=== PATIENT | male | born 1945 | race Caucasian/White ===

== ENCOUNTER 2016-10-22 19:19 | Emergency (ER) | payer BC, MEDICARE ==
[~2016-10-22 19:19] MED LIST: HYDR-3713 PO
[2016-10-22] MEDS ORDERED: methylPREDNISolone INJ 125 MG/2 ML VIAL (J2930) As Ordered ONE (19:46)
[2016-10-22] MEDS ORDERED: IPRATROPIUM 0.5MG/ALBUTEROL 2.5MG INH SOL UD 3ML (DUONEB)(J7620) As Ordered ONE ×2 (19:50→20:46)
[2016-10-22 20:05] LABS: BASO % 0.5 % (0.0-1.0); EOS # 0.3 K/mm3 (0.0-0.50); LARGE UNSTAINED CELL # 0.2 K/mm3 (0.0-0.4); LARGE UNSTAINED CELL % 2.9 % (0.0-4.0); LYMPH # 1.6 K/mm3 (1.5-4.5); LYMPH % 30.8 % (24.0-44.0); MEAN CORPUSCULAR HEMOGLOBIN 31.2 pg (27.0-33.0); MEAN CORPUSCULAR HGB CONC 34.5 g/dl (32.0-36.5); MEAN CORPUSCULAR VOLUME 90.4 fl (80.0-96.0); MONO # 0.4 K/mm3 (0.0-0.8); MONO % 7.6 % (0.0-5.0); NEUTROPHILS # 2.8 K/mm3 (1.8-7.7); NEUTROPHILS % 53.2 % (36.0-66.0); PLATELET COUNT, AUTOMATED 146 k/mm3 (150-450); RED CELL DISTRIBUTION WIDTH 13.2 % (11.5-14.5); WHITE BLOOD COUNT 5.3 K/mm3 (4.0-10.0)
[2016-10-22 20:06] LABS: ABG DEVICE NASAL CANN; ABG HCO3 22.2 MEQ/L (22.0-26.0); ABG PARTIAL PRESSURE CO2 36.6 mmHg (35.0-45.0); ABG PARTIAL PRESSURE O2 93.3 mmHg (75.0-100.0); ABG STANDARD HCO3 22.8 MEQ/L (22.0-26.0); ABG TOTAL CO2 23.3 MEQ/L (23.0-31.0); ABG pH (ARTERIAL) 7.401 UNITS (7.350-7.450)
[2016-10-22 20:30] LABS: ANION GAP 6 MEQ/L (8-16); BLOOD UREA NITROGEN 13 MG/DL (7-18); CALCIUM LEVEL 8.9 MG/DL (8.8-10.2); CARBON DIOXIDE LEVEL 28 MEQ/L (21-32); CHLORIDE LEVEL 110 MEQ/L (98-107); CREATININE FOR GFR 0.92 MG/DL (0.70-1.30); GLOMERULAR FILTRATION RATE > 60.0 (>49); GLUCOSE, FASTING 102 MG/DL (80-110); POTASSIUM SERUM 4.8 MEQ/L (3.5-5.1); SODIUM LEVEL 144 MEQ/L (136-145)
[2016-10-22] MEDS ORDERED: predniSONE 20 MG TAB As Ordered ONE (22:04)
[2016-10-22] MEDS ORDERED: AZITHROMYCIN 250 MG TAB As Ordered ONE (22:04)
--- NOTE | 2016-10-22 22:37 | EDDOCDS ---
Nurse's Notes [facility] Name: Jorge Paris Age: 70 yrs Sex: Male : 1945 Arrival Date: 10/22/2016 Time: 19:19 Bed 11 Private MD: Otto Malin Diagnosis: Chronic obstructive pulmonary disease with (acute) exacerbation Presentation: 10/22 19:32 Presenting complaint: Patient states: SOB increasingly worse since this evening. Last ttb couple days pt has had dry cough, worsening tonight. Labored breathing and diaphoresis noted upon arrival. Adult Sepsis Screening: The patient does not have new or worsening altered mentation. Patient has a respiratory rate of greater than or equal to 22 (1 point). Systolic blood pressure is greater than 100. Patient has a qSOFA score of 1- Negative Sepsis Screen. Suicide/Homicide risk assessment- the patient denies having any suicidal and/or homicidal ideations and does not present with any other emotional, behavioral or mental health complaints. Status: Patient is not a emergency services professional or dependent. Transition of care: patient was not received from another setting of care. 19:32 Acuity: KRISTY Level 2 ttb 19:32 Method Of Arrival: Walkin/Carried/Asstd ttb Triage Assessment: 19:32 General: Appears uncomfortable, well nourished, well groomed, Behavior is anxious, ttb appropriate for age, cooperative, pleasant. Pain: Denies pain. Neurological: Level of Consciousness is awake, alert. Cardiovascular: Chest pain is denied. Respiratory: Airway is patent Respiratory effort is even, labored, with retractions, shallow, Respiratory pattern is symmetrical, tachypnea Reports shortness of breath at rest on exertion cough that is non-productive, labored breathing since worsening tonight the patient has moderate shortness of breath. Derm: Skin is clammy, diaphoretic, Skin is normal, Skin temperature is warm. Injury Description: No known injury. 22:36 Respiratory: Onset: The symptoms/episode began/occurred suddenly. cf2 Historical: - Allergies: no known allergies; - Home Meds: 1. albuterol sulfate 90 mcg/actuation Inhl HFAA every 4-6 hours (Last dose: 10/22/2016 18:30) 2. anoro inhaler daily (Last dose: 10/22/2016 08:00) 3. aspirin 325 mg Oral tab 1 tab once daily (Last dose: 10/22/2016 08:00) 4. antiinflammatory twice a day (Last dose: 10/22/2016 17:30) 5. ramipril 2.5 mg Oral cap once daily (Last dose: 10/22/2016 17:30) 6. simvastatin 20 mg Oral tab 1 tab once daily (Last dose: 10/22/2016 17:30) - PMHx: COPD; NC; right toe surgery; Hypercholesterolemia; Hypertension; - PSHx: Hernia repair- Right inguinal (2010); Cataract Surgery- Bilateral; Hernia repair- Left inguinal (2009); - The history from nurses notes was reviewed: and I agree with what is documented. - Social history: Smoking status: Patient states former smoker of tobacco. Patient/guardian denies using alcohol, street drugs, No barriers to communication noted, The patient speaks fluent Mauritanian, Speaks appropriately for age. - : The pt / caregiver states he / she is not on anticoagulants. Home medication list is obtained from the patient. - Hospitalizations: : No recent hospitalization is reported. - Exposure Risk Screening:: None identified. - Immunization history:: All immunizations up-to-date. - Family history: Not pertinent. - Social history:: the patient is a former smoker, the patient drinks alcohol, socially. Screenin:28 Screening information is obtained from the patient. Fall risk: No risks identified. cf2 Assistance ADL's: requires no assistance with activities of daily living. Abuse/DV Screen: The patient / caregiver reports he/she is: not in a situation that causes fear, pain or injury. Nutritional screening: No deficits noted. Advance Directives: Further advance directive information is declined. home support is adequate. Assessment: 20:07 Adult Sepsis Screening: The patient does not have new or worsening altered mentation. cf2 Patient has a respiratory rate of greater than or equal to 22 (1 point). Systolic blood pressure is greater than 100. Patient has a qSOFA score of 1- Negative Sepsis Screen. General: Appears distressed, ill, Behavior is anxious, restless, Reports feeling ill for Denies fever, fatigue, chills. Pain: Denies pain. Neurological: No deficits noted. EENT: No deficits noted. Cardiovascular: Rhythm is sinus rhythm Chest pain is denied. Respiratory: Airway is patent Respiratory effort is labored, Respiratory pattern is tachypnea Breath sounds with rales bilaterally. Breath sounds with wheezes bilaterally. GI: No deficits noted. : No deficits noted. Derm: No deficits noted. Musculoskeletal: No deficits noted. Injury Description: No known injury. 22:35 Reassessment: Patient appears in no apparent distress at this time. Patient denies pain cf2 at this time. Patient states feeling better. Patient states symptoms have improved. Vital Signs: 19:20 BP 191 / 97; Pulse 106; Resp 26; Pulse Ox 97% ; Weight 74.84 kg (R); Height 5 ft. 11 elp in. (180.34 cm) (R); 19:28 Pulse 104 MON; Pulse Ox 96% ; cf2 19:31 Pulse 104 MON; Pulse Ox 98% ; cf2 19:35 Pulse 110 MON; Pulse Ox 97% ; cf2 19:38 Pulse 102 MON; Pulse Ox 97% ; cf2 19:41 Pulse 104 MON; Pulse Ox 97% ; cf2 19:44 Pulse 102 MON; Pulse Ox 96% ; cf2 19:46 Pulse 100 MON; Pulse Ox 96% ; cf2 19:49 Pulse 96 MON; Pulse Ox 96% ; cf2 19:53 Pulse 94 MON; Pulse Ox 96% ; cf2 19:59 Pulse 102 MON; Pulse Ox 98% ; cf2 20:03 Pulse 100 MON; Pulse Ox 99% ; cf2 20:05 Pulse 98 MON; Pulse Ox 99% ; cf2 20:07 Pulse 98 MON; Pulse Ox 99% ; cf2 20:22 Pulse 94 MON; Pulse Ox 97% ; cf2 20:23 BP 139 / 74; Pulse 94; Resp 26; Pulse Ox 97% on 2 lpm NC; Pain 2/10; cf2 20:28 Pulse 94 MON; Pulse Ox 98% ; cf2 20:35 Pulse 96 MON; Pulse Ox 99% ; cf2 20:41 Pulse 98 MON; Pulse Ox 96% ; cf2 20:45 Pulse 100 MON; Pulse Ox 95% ; cf2 20:49 Pulse 104 MON; Pulse Ox 99% ; cf2 21:57 BP 131 / 65; Pulse 104; Resp 22; Temp 97.6(O); Pulse Ox 96% on R/A; cf2 22:35 BP 132 / 78; Pulse 98; Resp 22; Temp 98.0; Pulse Ox 96% on R/A; Pain 0/10; cf2 19:20 Body Mass Index 23.01 (74.84 kg, 180.34 cm) elp Vitals: 19:20 Log In Time: October 22, 2016 at 19:18. RN notified that patient meets Red Flag elp criteria. ED Course: 19:20 Patient visited by Becka Cevallos PCA. elp 19:20 Otto Malin MD is Private Physician. elp 19:20 Patient moved to Waiting elp 19:21 Patient visited by Becka Cevallos PCA. elp 19:22 Patient moved to [facility] 19:28 The patient / caregiver is instructed regarding the plan of care and ED course. Patient cf2 has correct armband on for positive identification. Placed in gown. Bed in low position. Call light in reach. Side rails up X 1. Side rails up X2. mechanic on. Pulse ox on. NIBP on. Property :Personal belongings accompany Pt. Door closed. Noise minimized. Visitors limited. Lights dimmed. Moved to private room. Verbal reassurance given. Warm blanket given. Pillow given. Head of bed elevated. Diet: Patient is NPO. 19:28 Inserted saline lock: 20 gauge in left antecubital area and blood collected. The cf2 patient tolerated the procedure well. 19:30 Jonnathan Koroma MD is Attending Physician. pc 19:33 Triage Initiated ttb 19:34 Renea Felder,CARRIE is Primary Nurse. cf2 19:35 Patient visited by Kiki Pradhan RN. ttb 19:35 Patient visited by Renea Felder,CARRIE. cf2 19:35 Patient visited by Jonnathan Koroma MD. pc 19:55 -Influenza A&B Rapid Antigen - Nose Sent. cf2 19:55 BLOOD CULTURES Sent. cf2 19:55 -Blood Culture Sent. cf2 19:55 B-Type Natiuretic Peptide Sent. cf2 19:55 Basic Metabolic Profile Sent. cf2 19:55 CBC with Diff Sent. cf2 19:55 Cardiac Injury Profile Sent. cf2 19:55 Troponin Sent. cf2 20:01 -Arterial Blood Gas Sent. jh6 20:05 Patient visited by Renea Felder,CARRIE. cf2 20:07 Patient visited by Renea Felder,CARRIE. cf2 20:27 [facility] Payment Agreement was scanned into [employer] and attached to record. zo 20:33 EKG done. (by ED staff). Reviewed by Jonnathan Koroma MD. kb5 20:34 Patient visited by Sebas Van PCA. kb5 21:08 Patient visited by Renea Felder RN. cf2 21:16 Patient visited by Renea Felder RN. cf2 21:23 Patient visited by Sebas Van PCA. kb5 21:47 Patient visited by Renea Felder RN. cf2 21:53 Patient visited by Renea Felder RN. cf2 21:57 Patient visited by Renea Felder RN. cf2 21:57 No procedures done that require assistance. cf2 22:00 Otto Malin MD is Referral Physician. pc 22:00 Dread Bonilla is Referral Physician. pc 22:03 Patient visited by Renea Felder RN. cf2 22:11 Patient visited by Renea Felder RN. cf2 22:35 Patient visited by Renea Felder RN. cf2 22:35 Discontinued lock bleeding controlled, pressure dressing applied, No redness/swelling cf2 at site. Administered Medications: 19:46 Drug: Solu-MEDROL 125 mg [Solu-Medrol 500 mg intravenous solution (125 mg)] Route: IVP; cf2 Site: left antecubital; 20:00 Drug: Albuterol-Ipratropium 1 neb [ipratropium-albuterol 0.5 mg-3 mg(2.5 mg base)/3 mL jh6 nebulization soln (1 neb)] Route: Nebulizer; 20:22 Drug: Albuterol-Ipratropium 1 neb [ipratropium-albuterol 0.5 mg-3 mg(2.5 mg base)/3 mL jh6 nebulization soln (1 neb)] Route: Nebulizer; 20:48 Drug: Albuterol-Ipratropium 1 neb [ipratropium-albuterol 0.5 mg-3 mg(2.5 mg base)/3 mL jh6 nebulization soln (1 neb)] Route: Nebulizer; 22:06 Drug: predniSONE 60 mg [prednisone 20 mg tablet (3 tabs)] Route: PO; cf2 22:10 Follow up: Response: Med's dispensed home cf2 22:07 Drug: azithromycin 500 mg [azithromycin 250 mg tablet (2 tabs)] Route: PO; cf2 22:10 Follow up: Response: No significant change. cf2 RT: 19:55 ABG's drawn from right radial artery pressure held for 5 minutes no bleeding noted jh6 pressure bandage applied specimen sent pt. tolerated well. 20:00 Initial Med Neb Given as ordered Patient was instructed and evaluated on procedure jh6 Patient tolerated procedure well without adverse effect. Respiratory: Airway is patent Respiratory effort is even, labored, Respiratory pattern is regular symmetrical, Breath sounds are coarse in right upper lobe, left upper lobe, right middle lobe, left lower lobe and right lower lobe Breath sounds are diminished in right upper lobe, left upper lobe, right middle lobe, left lower lobe and right lower lobe. 20:10 Respiratory: Breath sounds are diminished in right upper lobe, left upper lobe, right jh6 middle lobe, left lower lobe and right lower lobe Breath sounds with wheezes in right upper lobe, left upper lobe, right middle lobe, left lower lobe and right lower lobe at expiration. 20:22 Subsequent Med Neb Given as ordered Patient was reinforced on procedure Patient jh6 tolerated procedure well without adverse effect. Respiratory: Breath sounds are diminished in right upper lobe, left upper lobe, right middle lobe, left lower lobe and right lower lobe Breath sounds with wheezes in right upper lobe, left upper lobe, right middle lobe, left lower lobe and right lower lobe at expiration. 20:34 Respiratory: Airway is patent Respiratory effort is even, unlabored, Respiratory [facility] pattern is regular symmetrical, Breath sounds are coarse in right upper lobe, left upper lobe and right middle lobe Breath sounds are diminished in right upper lobe, left upper lobe, right middle lobe, left lower lobe and right lower lobe. 20:48 Subsequent Med Neb Given as ordered Patient was reinforced on procedure Patient jh6 tolerated procedure well without adverse effect. Respiratory: Airway is patent Respiratory effort is even, unlabored, Respiratory pattern is regular symmetrical, Breath sounds are coarse in right upper lobe, left upper lobe and right middle lobe Breath sounds with rhonchi in right upper lobe, left upper lobe and right middle lobe Breath sounds are diminished in right upper lobe, left upper lobe, right middle lobe, left lower lobe and right lower lobe. 20:55 Respiratory: Airway is patent Respiratory effort is even, unlabored, Respiratory jh6 pattern is regular symmetrical, Breath sounds are coarse in left posterior upper lobe, right posterior upper lobe, left posterior lower lobe, right posterior middle lobe and right posterior lower lobe Breath sounds with wheezes in left posterior upper lobe, right posterior upper lobe, left posterior lower lobe, right posterior middle lobe and right posterior lower lobe at expiration at inspiration. Reports still some chest tightness. Order Results: Lab Order: B-Type Natiuretic Peptide; SPEC'M 10/22/16 19:49 Test: BRAIN NATRIURETIC PEPTIDE; Value: 9.2; Range: <100; Units: PG/ML; Status: F Lab Order: Basic Metabolic Profile; SPEC'M 10/22/16 19:49 Test: GLUCOSE, FASTING; Value: 102; Range: 80-110; Units: MG/DL; Status: F Test: BLOOD UREA NITROGEN; Value: 13; Range: 7-18; Units: MG/DL; Status: F Test: CREATININE FOR GFR; Value: 0.92; Range: 0.70-1.30; Units: MG/DL; Status: F Test: GLOMERULAR FILTRATION RATE; Value: > 60.0; Range: >49; Status: F Test: SODIUM LEVEL; Value: 144; Range: 136-145; Units: MEQ/L; Status: F Test: POTASSIUM SERUM; Value: 4.8; Range: 3.5-5.1; Units: MEQ/L; Status: F Test: CHLORIDE LEVEL; Value: 110; Range: 98-107; Abnormal: Above high normal; Units: MEQ/L; Status: F Test: CARBON DIOXIDE LEVEL; Value: 28; Range: 21-32; Units: MEQ/L; Status: F Test: ANION GAP; Value: 6; Range: 8-16; Abnormal: Below low normal; Units: MEQ/L; Status: F Test: CALCIUM LEVEL; Value: 8.9; Range: 8.8-10.2; Units: MG/DL; Status: F Test Note: ; Units are mL/min/1.73 m2 Chronic Kidney Disease Staging per NKF: Stage I & II GFR >=60 Normal to Mildly Decreased Stage III GFR 30-59 Moderately Decreased Stage IV GFR 15-29 Severely Decreased Stage V GFR <15 Very Little GFR Left ESRD GFR <15 on PLANNER CHIEF Lab Order: CBC with Diff; SPEC'M 10/22/16 19:49 Test: WHITE BLOOD COUNT; Value: 5.3; Range: 4.0-10.0; Units: K/mm3; Status: F Test: RED BLOOD COUNT; Value: 5.18; Range: 4.30-6.10; Units: M/mm3; Status: F Test: HEMOGLOBIN; Value: 16.2; Range: 14.0-18.0; Units: g/dl; Status: F Test: HEMATOCRIT; Value: 46.9; Range: 42.0-52.0; Units: %; Status: F Test: MEAN CORPUSCULAR VOLUME; Value: 90.4; Range: 80.0-96.0; Units: fl; Status: F Test: MEAN CORPUSCULAR HEMOGLOBIN; Value: 31.2; Range: 27.0-33.0; Units: pg; Status: F Test: MEAN CORPUSCULAR HGB CONC; Value: 34.5; Range: 32.0-36.5; Units: g/dl; Status: F Test: RED CELL DISTRIBUTION WIDTH; Value: 13.2; Range: 11.5-14.5; Units: %; Status: F Test: PLATELET COUNT, AUTOMATED; Value: 146; Range: 150-450; Abnormal: Below low normal; Units: k/mm3; Status: F Test: NEUTROPHILS %; Value: 53.2; Range: 36.0-66.0; Units: %; Status: F Test: LYMPH %; Value: 30.8; Range: 24.0-44.0; Units: %; Status: F Test: MONO %; Value: 7.6; Range: 0.0-5.0; Abnormal: Above high normal; Units: %; Status: F Test: EOS %; Value: 5.0; Range: 0.0-3.0; Abnormal: Above high normal; Units: %; Status: F Test: BASO %; Value: 0.5; Range: 0.0-1.0; Units: %; Status: F Test: LARGE UNSTAINED CELL %; Value: 2.9; Range: 0.0-4.0; Units: %; Status: F Test: NEUTROPHILS #; Value: 2.8; Range: 1.8-7.7; Units: K/mm3; Status: F Test: LYMPH #; Value: 1.6; Range: 1.5-4.5; Units: K/mm3; Status: F Test: MONO #; Value: 0.4; Range: 0.0-0.8; Units: K/mm3; Status: F Test: EOS #; Value: 0.3; Range: 0.0-0.50; Units: K/mm3; Status: F Test: BASO #; Value: 0.0; Range: 0.0-0.2; Units: K/mm3; Status: F Test: LARGE UNSTAINED CELL #; Value: 0.2; Range: 0.0-0.4; Units: K/mm3; Status: F Lab Order: Cardiac Injury Profile; SPEC'M 10/22/16 19:49 Test: CPK CREATINE PHOSPHOKINASE; Value: 76; Range: 39-308; Units: U/L; Status: F Test: CK-MB VALUE MASS; Value: 1.5; Range: 0.0-3.6; Units: NG/ML; Status: F Test: MB/CK RELATIVE INDEX; Value: 1.97; Range: < OR =4; Status: F Test Note: ; DIAGNOSIS CRITERIA MMB ng/ml Relative Index (RI) NON-AMI < or = 5 N/A PEDROZA ZONE > 5 < or = 4 AMI > 5 > 4 Lab Order: Troponin; SPEC'M 10/22/16 19:49 Test: TROPONIN I; Value: < 0.02; Range: < 0.10; Units: NG/ML; Status: F Test Note: ; Troponin I Reference Interval for [place] LOCI: 99th Percentile= 0.00-0.045 ng/ml Risk Stratification: <= 0.10 ng/ml Decreased Risk for Adverse Clinical Events. 0.10-1.50 ng/ml Increased Risk for Adverse Clinical Events. Evaluation of additional criterion and/or repeat testing in 2-6 hours is suggested to rule out myocardial damage. >= 1.50 ng/ml Indicative of Myocardial Injury. Lab Order: -Influenza A&B Rapid Antigen - Nose; SPEC'M 10/22/16 19:49 Test: INFLUENZA A RAPID SCR by ICA; Value: INFLUENZA A RESULTS NEGATIVE; Status: F Test: INFLUENZA A RAPID SCR by ICA; Value: Comments:; Status: F Test: INFLUENZA B RAPID SCR by ICA; Value: INFLUENZA B RESULTS NEGATIVE; Status: F Test Note: ; The Influenza test is a direct rapid immunoassay for the qualitative detection of Influenza viral antigen. Cell culture (Viral Culture) testing should be considered to confirm NEGATIVE results and to assist in detecting other viruses that can provide similar clinical symptoms. Please contact the lab within 24 hours ([phone]) if confirmatory testing is desired. Outcome: 22:01 Discharge ordered by Provider. pc 22:35 Discharge Assessment: Patient awake, alert and oriented x 3. No cognitive and/or cf2 functional deficits noted. Patient verbalized understanding of disposition instructions. Patient awake and alert. Oriented to person, place and time. patient administered narcotics - no. The following High Risk Discharge criteria are identified: None. Discharged to home ambulatory. Condition: good Condition: stable Condition: improved. Discharge instructions given to patient, Instructed on discharge instructions, follow up and referral plans. medication usage, Demonstrated understanding of instructions, medications. No special radiology studies were completed. 22:36 Patient left the ED. cf2 Signatures: Jonnathan Koroma MD MD pc Zecher, Calvin, Esther Mclain RN, Kristopher, DRYWALL WORKER DRYWALL WORKER kb5 Reece Avila 6 Kiki Pradhan RN RN ttb Patchen, Erin, DRYWALL WORKER DRYWALL WORKER elp Renea Felder RN RN cf2 MTDD
--- NOTE | 2016-10-22 22:37 | EDDOCDS ---
Physician Documentation [facility] Name: Jorge Paris Age: 70 yrs Sex: Male : 1945 Arrival Date: 10/22/2016 Time: 19:19 Bed 11 Private MD: Otto Malin Disposition: 10/22 21:59 Critical Care: Critical care not applicable. pc Disposition: 10/22/16 22:01 Discharged to Home/Self Care. Impression: Chronic obstructive pulmonary disease with (acute) exacerbation. - Condition is Stable. - Discharge Instructions: Chronic Obstructive Pulmonary Disease. - Prescriptions for Prednisone 10 mg Oral Tablet - take 1 tablet by ORAL route as directed Day1-3:6 po,day4-5:5 po,day6-7: 4 po,day8-9:3 po,fiu88-19:2 po,day 12-14:1 po; 49 tablet. Zithromax Z- Chu 250 mg Oral Tablet - take 2 tablet by ORAL route once daily for 3 days; 6 tablet. - Medication Reconciliation, Local Pharmacy Hours form. - Follow up: Otto Malin MD; When: Call to arrange an appointment; Reason: Continuance of care. Follow up: Dread Bonilla; When: As previously arranged; Reason: Continuance of care. - Problem is an acute exacerbation. - Symptoms have improved. HPI: 19:37 This 70 yrs old Male presents to ER via Walkin/Carried/Asstd with complaints pc of Breathing Difficulty. 19:37 The history is obtained from the patient. The patient presents with shortness of pc breath, with a prior history of COPD. The symptoms began gradually 2 days ago, and became worse today. The symptoms are continuous, and are steadily getting worse. There were circumstances that led to the current symptoms, including; a recent upper respiratory illness. The patient has shortness of breath at rest. At their worst, the symptoms were moderate. In the emergency department, the symptoms are unchanged. despite home interventions. The patient's shortness of breath is aggravated by coughing, is alleviated by nothing. The patient's dyspnea was accompanied with cough, non-productive, heart racing, anxiety. The patient's known risk factors for coronary artery disease include: high cholesterol, smoking cigarettes, hypertension. The patient has experienced similar episodes in the past, several times, and the symptoms today are exactly the same, to when the patient was apparently diagnosed with COPD exacerbation. The patient has not recently seen a physician. Historical: - Allergies: no known allergies; - Home Meds: 1. albuterol sulfate 90 mcg/actuation Inhl HFAA every 4-6 hours (Last dose: 10/22/2016 18:30) 2. anoro inhaler daily (Last dose: 10/22/2016 08:00) 3. aspirin 325 mg Oral tab 1 tab once daily (Last dose: 10/22/2016 08:00) 4. antiinflammatory twice a day (Last dose: 10/22/2016 17:30) 5. ramipril 2.5 mg Oral cap once daily (Last dose: 10/22/2016 17:30) 6. simvastatin 20 mg Oral tab 1 tab once daily (Last dose: 10/22/2016 17:30) - PMHx: COPD; ID; right toe surgery; Hypercholesterolemia; Hypertension; - PSHx: Hernia repair- Right inguinal (2010); Cataract Surgery- Bilateral; Hernia repair- Left inguinal (2009); - The history from nurses notes was reviewed: and I agree with what is documented. - Social history: Smoking status: Patient states former smoker of tobacco. Patient/guardian denies using alcohol, street drugs, No barriers to communication noted, The patient speaks fluent Georgian, Speaks appropriately for age. - : The pt / caregiver states he / she is not on anticoagulants. Home medication list is obtained from the patient. - Hospitalizations: : No recent hospitalization is reported. - Exposure Risk Screening:: None identified. - Immunization history:: All immunizations up-to-date. - Family history: Not pertinent. - Social history:: the patient is a former smoker, the patient drinks alcohol, socially. ROS: 19:37 All systems are negative except as listed. The gastrointestinal and genitourinary pc components are also addressed in the HPI. Exam: 19:37 General Appearance: alert, the patient is in moderate distress. pc 19:37 EENT: normal eye inspection, ears, nose and throat normal, pharynx normal, mucous membranes moist 19:37 Neck: normal inspection. 19:37 Respiratory: no pleuritic chest pain, speaks in full sentences, the patient is in mild respiratory distress, auscultation reveals wheezes, diffusely, decreased air entry noted throughout RR 26, PO 96% on room air. 19:37 Cardiovascular: normal rhythm, no jugular venous distension appreciated, no murmurs, no gallop, no friction rub, peripheral pulses full and equal bilaterally, the heart rate is tachycardic, at 108 bpm. 19:37 Abdomen: non-tender, non-distended, no organomegaly. 19:37 Skin: normal color, warm, dry. 19:37 Extremities: non-tender, normal range of motion of all joints, no pedal edema. 19:37 Neuro: alert, oriented to person, place and time, cranial nerves normal as tested, no motor deficits, no sensory deficits. 19:37 Psych: normal mood. 22:00 General Appearance: no acute distress, alert. pc 22:00 Respiratory: no respiratory distress, breath sounds normal, no pleuritic chest pain, speaks in full sentences. Vital Signs: 19:20 BP 191 / 97; Pulse 106; Resp 26; Pulse Ox 97% ; Weight 74.84 kg / 164.99 lbs (R); elp Height 5 ft. 11 in. (180.34 cm) (R); 19:28 Pulse 104 MON; Pulse Ox 96% ; cf2 19:31 Pulse 104 MON; Pulse Ox 98% ; cf2 19:35 Pulse 110 MON; Pulse Ox 97% ; cf2 19:38 Pulse 102 MON; Pulse Ox 97% ; cf2 19:41 Pulse 104 MON; Pulse Ox 97% ; cf2 19:44 Pulse 102 MON; Pulse Ox 96% ; cf2 19:46 Pulse 100 MON; Pulse Ox 96% ; cf2 19:49 Pulse 96 MON; Pulse Ox 96% ; cf2 19:53 Pulse 94 MON; Pulse Ox 96% ; cf2 19:59 Pulse 102 MON; Pulse Ox 98% ; cf2 20:03 Pulse 100 MON; Pulse Ox 99% ; cf2 20:05 Pulse 98 MON; Pulse Ox 99% ; cf2 20:07 Pulse 98 MON; Pulse Ox 99% ; cf2 20:22 Pulse 94 MON; Pulse Ox 97% ; cf2 20:23 BP 139 / 74; Pulse 94; Resp 26; Pulse Ox 97% on 2 lpm NC; Pain 2/10; cf2 20:28 Pulse 94 MON; Pulse Ox 98% ; cf2 20:35 Pulse 96 MON; Pulse Ox 99% ; cf2 20:41 Pulse 98 MON; Pulse Ox 96% ; cf2 20:45 Pulse 100 MON; Pulse Ox 95% ; cf2 20:49 Pulse 104 MON; Pulse Ox 99% ; cf2 21:57 BP 131 / 65; Pulse 104; Resp 22; Temp 97.6(O); Pulse Ox 96% on R/A; cf2 22:35 BP 132 / 78; Pulse 98; Resp 22; Temp 98.0; Pulse Ox 96% on R/A; Pain 0/10; cf2 19:20 Body Mass Index 23.01 (74.84 kg, 180.34 cm) elp MDM: 19:36 Solu-MEDROL 125 mg IVP once ordered. pc 19:36 -Blood Culture (Adults Only), peripheral from different site, or from device/port/PICC pc etc. if present ordered. 19:36 Call Respiratory ordered. pc 19:36 High Heel Builder/Pulse Ox/q 15 min VS ordered. pc 19:36 IV Saline Lock ordered. pc 19:36 Rhythm Strip to chart ordered. pc 19:36 Albuterol-Ipratropium 1 neb Nebulizer every 20 minutes x3 ordered. pc 19:36 Obtain sample by nasopharyngeal swab ordered. pc 19:37 -Arterial Blood Gas Ordered. EDMS 19:37 B-Type Natiuretic Peptide Ordered. EDMS 19:37 Basic Metabolic Profile Ordered. EDMS 19:37 CBC with Diff Ordered. EDMS 19:37 Cardiac Injury Profile Ordered. EDMS 19:37 Troponin Ordered. EDMS 19:37 -Blood Culture Ordered. EDMS 19:37 Call Respiratory complete. ml3 19:37 Chest, 1 View Ordered. EDMS 19:37 Differential diagnosis: Bronchitis CHF, Chronic Obstructive Pulmonary Disease pc pneumonia, Unstable Angina Influenza. Plan: labs, nebs, meds, CXR, EKG. 19:38 ECG WITH READING ER PHYS+CARDIAG ordered. EDMS 19:38 -Influenza A&B Rapid Antigen - Nose Ordered. EDMS 19:38 -Blood Culture (Adults Only), peripheral from different site, or from device/port/PICC ml3 etc. if present complete. 19:39 BLOOD CULTURES Ordered. EDMS 20:15 Financial registration complete. zo 20:27 [facility] [place] Payment Agreement was scanned into [employer] and attached to record. zo 20:33 Test interpretation: EKG. pc 20:51 Basic Metabolic Profile Reviewed. pc 20:51 CBC with Diff Reviewed. pc 20:51 B-Type Natiuretic Peptide Reviewed. pc 20:51 Cardiac Injury Profile Reviewed. pc 20:51 Troponin Reviewed. pc 20:51 -Influenza A&B Rapid Antigen - Nose Reviewed. pc 21:53 Ambulate Patient wt Pulse Oximetry ordered. pc 21:53 Repeat Temperature - Oral: Inform provider of result ordered. pc 21:59 Data reviewed: old medical records, vital signs, nurses notes, EKG(s), lab test pc results, all radiology studies and available results. Test interpretation: LAB - all labs as ordered have been reviewed, interpreted and considered in the overall management of the clinical presentation; X-RAY - interpreted by id, 1 view chest chronic obstructive pulmonary disease pattern. The patient has been re-examined and re-evaluated. The patient's symptoms have resolved after treatment. Disposition: The historical points, examination findings, and any diagnostic results supporting the provided diagnosis, were discussed with the patient or legal guardian. The need for outpatient follow up with the provider listed on their discharge instructions was discussed. They were encouraged to return to [facility], or the nearest ED, if symptoms worsen/persist, or for any other questions/concerns. 22:03 predniSONE 60 mg PO Per package directions; dispense to go: take in the A.M. ordered. pc 22:03 azithromycin 500 mg PO once ordered. pc EC:33 Rate is 93 beats/min. Rhythm is regular, Normal Sinus Rhythm. QRS [place] is Normal. [place] pc interval is normal. QRS interval is normal. QT interval is normal. No Q waves. T waves are Normal. No ST changes noted. Clinical impression: Normal Sinus Rhythm. Administered Medications: 19:46 Drug: Solu-MEDROL 125 mg [Solu-Medrol 500 mg intravenous solution (125 mg)] Route: IVP; cf2 Site: left antecubital; 20:00 Drug: Albuterol-Ipratropium 1 neb [ipratropium-albuterol 0.5 mg-3 mg(2.5 mg base)/3 mL jh6 nebulization soln (1 neb)] Route: Nebulizer; 20:22 Drug: Albuterol-Ipratropium 1 neb [ipratropium-albuterol 0.5 mg-3 mg(2.5 mg base)/3 mL jh6 nebulization soln (1 neb)] Route: Nebulizer; 20:48 Drug: Albuterol-Ipratropium 1 neb [ipratropium-albuterol 0.5 mg-3 mg(2.5 mg base)/3 mL jh6 nebulization soln (1 neb)] Route: Nebulizer; 22:06 Drug: predniSONE 60 mg [prednisone 20 mg tablet (3 tabs)] Route: PO; cf2 22:10 Follow up: Response: Med's dispensed home cf2 22:07 Drug: azithromycin 500 mg [azithromycin 250 mg tablet (2 tabs)] Route: PO; cf2 22:10 Follow up: Response: No significant change. cf2 Signatures: Dispatcher [employer] EDMS Jonnathan Koroma MD MD pc Lopresti, Mary-Elizabeth, [employer] ml3 Esther Shanks Teresa, RN RN ttb Renea Felder RN RN cf2 Reece Avila 6 The chart was reviewed and I authenticate all verbal orders and agree with the evaluation and treatment provided.Attachments: 20:27 [facility] Payment Agreement zo MTDD
--- NOTE | 2016-10-23 00:21 | REP ---
Clinical: Chest pain. Comparison: 02/07/2016. Findings: Mediastinum and cardiac silhouette are stable and within normal limits. Lung álvarez demonstrate chronic changes without acute consolidation, effusion, or pneumothorax. Skeletal structures are intact. Impression: Chronic stable changes. No acute cardiopulmonary process. Signed by Fabrizio Reynolds MD 10/23/2016 12:12 A
--- NOTE | 2016-10-23 07:27 | ECGEPIP ---
Stationary ECG Study [facility] - ED Test Date: 2016-10-22 Pat Name: SOURAV GEORGE Department: Room: - Gender: M Market Development Director: ANA : 1945 Requested By: Jonnathan Uribe Order Number: [id number] Reading MD: Farnaz De La Torre Measurements Intervals [place] Rate: 93 P: 63 KS: 167 QRS: 33 QRSD: 93 T: 60 QT: 328 QTc: 409 Interpretive Statements SINUS RHYTHM LOW VOLTAGE LIMB INCREASED RATE 08/25/16 Electronically Signed On 10-23-2016 7:26:52 EST by Farnaz De La Torre
--- NOTE | 2016-10-24 23:38 | EDDOCDS ---
Physician Documentation [facility] Name: Jorge Paris Age: 70 yrs Sex: Male : 1945 Arrival Date: 10/22/2016 Time: 19:19 Bed 11 Private MD: Otto Malin Disposition: 10/22 21:59 Critical Care: Critical care not applicable. pc Disposition: 10/22/16 22:01 Discharged to Home/Self Care. Impression: Chronic obstructive pulmonary disease with (acute) exacerbation. - Condition is Stable. - Discharge Instructions: Chronic Obstructive Pulmonary Disease. - Prescriptions for Prednisone 10 mg Oral Tablet - take 1 tablet by ORAL route as directed Day1-3:6 po,day4-5:5 po,day6-7: 4 po,day8-9:3 po,nfy97-25:2 po,day 12-14:1 po; 49 tablet. Zithromax Z- Chu 250 mg Oral Tablet - take 2 tablet by ORAL route once daily for 3 days; 6 tablet. - Medication Reconciliation, Local Pharmacy Hours form. - Follow up: Otto Malin MD; When: Call to arrange an appointment; Reason: Continuance of care. Follow up: Dread Bonilla; When: As previously arranged; Reason: Continuance of care. - Problem is an acute exacerbation. - Symptoms have improved. HPI: 19:37 This 70 yrs old Male presents to ER via Walkin/Carried/Asstd with complaints pc of Breathing Difficulty. 19:37 The history is obtained from the patient. The patient presents with shortness of pc breath, with a prior history of COPD. The symptoms began gradually 2 days ago, and became worse today. The symptoms are continuous, and are steadily getting worse. There were circumstances that led to the current symptoms, including; a recent upper respiratory illness. The patient has shortness of breath at rest. At their worst, the symptoms were moderate. In the emergency department, the symptoms are unchanged. despite home interventions. The patient's shortness of breath is aggravated by coughing, is alleviated by nothing. The patient's dyspnea was accompanied with cough, non-productive, heart racing, anxiety. The patient's known risk factors for coronary artery disease include: high cholesterol, smoking cigarettes, hypertension. The patient has experienced similar episodes in the past, several times, and the symptoms today are exactly the same, to when the patient was apparently diagnosed with COPD exacerbation. The patient has not recently seen a physician. Historical: - Allergies: no known allergies; - Home Meds: 1. albuterol sulfate 90 mcg/actuation Inhl HFAA every 4-6 hours (Last dose: 10/22/2016 18:30) 2. anoro inhaler daily (Last dose: 10/22/2016 08:00) 3. aspirin 325 mg Oral tab 1 tab once daily (Last dose: 10/22/2016 08:00) 4. antiinflammatory twice a day (Last dose: 10/22/2016 17:30) 5. ramipril 2.5 mg Oral cap once daily (Last dose: 10/22/2016 17:30) 6. simvastatin 20 mg Oral tab 1 tab once daily (Last dose: 10/22/2016 17:30) - PMHx: COPD; [place]; right toe surgery; Hypercholesterolemia; Hypertension; - PSHx: Hernia repair- Right inguinal (2010); Cataract Surgery- Bilateral; Hernia repair- Left inguinal (2009); - The history from nurses notes was reviewed: and I agree with what is documented. - Social history: Smoking status: Patient states former smoker of tobacco. Patient/guardian denies using alcohol, street drugs, No barriers to communication noted, The patient speaks fluent Faroese, Speaks appropriately for age. - : The pt / caregiver states he / she is not on anticoagulants. Home medication list is obtained from the patient. - Hospitalizations: : No recent hospitalization is reported. - Exposure Risk Screening:: None identified. - Immunization history:: All immunizations up-to-date. - Family history: Not pertinent. - Social history:: the patient is a former smoker, the patient drinks alcohol, socially. ROS: 19:37 All systems are negative except as listed. The gastrointestinal and genitourinary pc components are also addressed in the HPI. Exam: 19:37 General Appearance: alert, the patient is in moderate distress. pc 19:37 EENT: normal eye inspection, ears, nose and throat normal, pharynx normal, mucous membranes moist 19:37 Neck: normal inspection. 19:37 Respiratory: no pleuritic chest pain, speaks in full sentences, the patient is in mild respiratory distress, auscultation reveals wheezes, diffusely, decreased air entry noted throughout RR 26, PO 96% on room air. 19:37 Cardiovascular: normal rhythm, no jugular venous distension appreciated, no murmurs, no gallop, no friction rub, peripheral pulses full and equal bilaterally, the heart rate is tachycardic, at 108 bpm. 19:37 Abdomen: non-tender, non-distended, no organomegaly. 19:37 Skin: normal color, warm, dry. 19:37 Extremities: non-tender, normal range of motion of all joints, no pedal edema. 19:37 Neuro: alert, oriented to person, place and time, cranial nerves normal as tested, no motor deficits, no sensory deficits. 19:37 Psych: normal mood. 22:00 General Appearance: no acute distress, alert. pc 22:00 Respiratory: no respiratory distress, breath sounds normal, no pleuritic chest pain, speaks in full sentences. Vital Signs: 19:20 BP 191 / 97; Pulse 106; Resp 26; Pulse Ox 97% ; Weight 74.84 kg / 164.99 lbs (R); elp Height 5 ft. 11 in. (180.34 cm) (R); 19:28 Pulse 104 MON; Pulse Ox 96% ; cf2 19:31 Pulse 104 MON; Pulse Ox 98% ; cf2 19:35 Pulse 110 MON; Pulse Ox 97% ; cf2 19:38 Pulse 102 MON; Pulse Ox 97% ; cf2 19:41 Pulse 104 MON; Pulse Ox 97% ; cf2 19:44 Pulse 102 MON; Pulse Ox 96% ; cf2 19:46 Pulse 100 MON; Pulse Ox 96% ; cf2 19:49 Pulse 96 MON; Pulse Ox 96% ; cf2 19:53 Pulse 94 MON; Pulse Ox 96% ; cf2 19:59 Pulse 102 MON; Pulse Ox 98% ; cf2 20:03 Pulse 100 MON; Pulse Ox 99% ; cf2 20:05 Pulse 98 MON; Pulse Ox 99% ; cf2 20:07 Pulse 98 MON; Pulse Ox 99% ; cf2 20:22 Pulse 94 MON; Pulse Ox 97% ; cf2 20:23 BP 139 / 74; Pulse 94; Resp 26; Pulse Ox 97% on 2 lpm NC; Pain 2/10; cf2 20:28 Pulse 94 MON; Pulse Ox 98% ; cf2 20:35 Pulse 96 MON; Pulse Ox 99% ; cf2 20:41 Pulse 98 MON; Pulse Ox 96% ; cf2 20:45 Pulse 100 MON; Pulse Ox 95% ; cf2 20:49 Pulse 104 MON; Pulse Ox 99% ; cf2 21:57 BP 131 / 65; Pulse 104; Resp 22; Temp 97.6(O); Pulse Ox 96% on R/A; cf2 22:35 BP 132 / 78; Pulse 98; Resp 22; Temp 98.0; Pulse Ox 96% on R/A; Pain 0/10; cf2 19:20 Body Mass Index 23.01 (74.84 kg, 180.34 cm) elp MDM: 19:36 Solu-MEDROL 125 mg IVP once ordered. pc 19:36 -Blood Culture (Adults Only), peripheral from different site, or from device/port/PICC pc etc. if present ordered. 19:36 Call Respiratory ordered. pc 19:36 Dumpster Driver/Pulse Ox/q 15 min VS ordered. pc 19:36 IV Saline Lock ordered. pc 19:36 Rhythm Strip to chart ordered. pc 19:36 Albuterol-Ipratropium 1 neb Nebulizer every 20 minutes x3 ordered. pc 19:36 Obtain sample by nasopharyngeal swab ordered. pc 19:37 -Arterial Blood Gas Ordered. EDMS 19:37 B-Type Natiuretic Peptide Ordered. EDMS 19:37 Basic Metabolic Profile Ordered. EDMS 19:37 CBC with Diff Ordered. EDMS 19:37 Cardiac Injury Profile Ordered. EDMS 19:37 Troponin Ordered. EDMS 19:37 -Blood Culture Ordered. EDMS 19:37 Call Respiratory complete. ml3 19:37 Chest, 1 View Ordered. EDMS 19:37 Differential diagnosis: Bronchitis CHF, Chronic Obstructive Pulmonary Disease pc pneumonia, Unstable Angina Influenza. Plan: labs, nebs, meds, CXR, EKG. 19:38 ECG WITH READING ER PHYS+CARDIAG ordered. EDMS 19:38 -Influenza A&B Rapid Antigen - Nose Ordered. EDMS 19:38 -Blood Culture (Adults Only), peripheral from different site, or from device/port/PICC ml3 etc. if present complete. 19:39 BLOOD CULTURES Ordered. EDMS 20:15 Financial registration complete. zo 20:27 [facility] was scanned into [employer] and attached to record. zo 20:33 Test interpretation: EKG. pc 20:51 Basic Metabolic Profile Reviewed. pc 20:51 CBC with Diff Reviewed. pc 20:51 B-Type Natiuretic Peptide Reviewed. pc 20:51 Cardiac Injury Profile Reviewed. pc 20:51 Troponin Reviewed. pc 20:51 -Influenza A&B Rapid Antigen - Nose Reviewed. pc 21:53 Ambulate Patient wt Pulse Oximetry ordered. pc 21:53 Repeat Temperature - Oral: Inform provider of result ordered. pc 21:59 Data reviewed: old medical records, vital signs, nurses notes, EKG(s), lab test pc results, all radiology studies and available results. Test interpretation: LAB - all labs as ordered have been reviewed, interpreted and considered in the overall management of the clinical presentation; X-RAY - interpreted by il, 1 view chest chronic obstructive pulmonary disease pattern. The patient has been re-examined and re-evaluated. The patient's symptoms have resolved after treatment. Disposition: The historical points, examination findings, and any diagnostic results supporting the provided diagnosis, were discussed with the patient or legal guardian. The need for outpatient follow up with the provider listed on their discharge instructions was discussed. They were encouraged to return to [facility], or the nearest ED, if symptoms worsen/persist, or for any other questions/concerns. 22:03 predniSONE 60 mg PO Per package directions; dispense to go: take in the A.M. ordered. pc 22:03 azithromycin 500 mg PO once ordered. 10/23 12:39 ECG/EKG was scanned into [employer] and attached to record. EC/25 20:33 Rate is 93 beats/min. Rhythm is regular, Normal Sinus Rhythm. QRS [place] is Normal. [place] pc interval is normal. QRS interval is normal. QT interval is normal. No Q waves. T waves are Normal. No ST changes noted. Clinical impression: Normal Sinus Rhythm. Administered Medications: 19:46 Drug: Solu-MEDROL 125 mg [Solu-Medrol 500 mg intravenous solution (125 mg)] Route: IVP; cf2 Site: left antecubital; 20:00 Drug: Albuterol-Ipratropium 1 neb [ipratropium-albuterol 0.5 mg-3 mg(2.5 mg base)/3 mL jh6 nebulization soln (1 neb)] Route: Nebulizer; 20:22 Drug: Albuterol-Ipratropium 1 neb [ipratropium-albuterol 0.5 mg-3 mg(2.5 mg base)/3 mL jh6 nebulization soln (1 neb)] Route: Nebulizer; 20:48 Drug: Albuterol-Ipratropium 1 neb [ipratropium-albuterol 0.5 mg-3 mg(2.5 mg base)/3 mL jh6 nebulization soln (1 neb)] Route: Nebulizer; 22:06 Drug: predniSONE 60 mg [prednisone 20 mg tablet (3 tabs)] Route: PO; cf2 22:10 Follow up: Response: Med's dispensed home cf2 22:07 Drug: azithromycin 500 mg [azithromycin 250 mg tablet (2 tabs)] Route: PO; cf2 22:10 Follow up: Response: No significant change. cf2 Signatures: Dispatcher [employer] EDJonnathan Kaba MD MD pc Barnhardt, Gloria, Denis Reg gb Malini Steinberg, Hotel Server Unit ml3 Esther Shanks Teresa, CARRIE RN ttb Renea Felder RN RN cf2 Reece Avila 6 The chart was reviewed and I authenticate all verbal orders and agree with the evaluation and treatment provided.Attachments: 20:27 [facility] [place] Agreement zo 10/23 12:39 [facility]EKG [facility]
--- NOTE | 2016-10-24 23:38 | EDDOCDS ---
Nurse's Notes [facility] Name: Jorge George Age: 70 yrs Sex: Male : 1945 Arrival Date: 10/22/2016 Time: 19:19 Bed 11 Private MD: Otto Malin Diagnosis: Chronic obstructive pulmonary disease with (acute) exacerbation Presentation: 10/22 19:32 Presenting complaint: Patient states: SOB increasingly worse since this evening. Last ttb couple days pt has had dry cough, worsening tonight. Labored breathing and diaphoresis noted upon arrival. Adult Sepsis Screening: The patient does not have new or worsening altered mentation. Patient has a respiratory rate of greater than or equal to 22 (1 point). Systolic blood pressure is greater than 100. Patient has a qSOFA score of 1- Negative Sepsis Screen. Suicide/Homicide risk assessment- the patient denies having any suicidal and/or homicidal ideations and does not present with any other emotional, behavioral or mental health complaints. 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 Transition of care: patient was not received from another setting of care. 19:32 Acuity: KRISTY Level 2 ttb 19:32 Method Of Arrival: Walkin/Carried/Asstd ttb Triage Assessment: 19:32 General: Appears uncomfortable, well nourished, well groomed, Behavior is anxious, ttb appropriate for age, cooperative, pleasant. Pain: Denies pain. Neurological: Level of Consciousness is awake, alert. Cardiovascular: Chest pain is denied. Respiratory: Airway is patent Respiratory effort is even, labored, with retractions, shallow, Respiratory pattern is symmetrical, tachypnea Reports shortness of breath at rest on exertion cough that is non-productive, labored breathing since worsening tonight the patient has moderate shortness of breath. Derm: Skin is clammy, diaphoretic, Skin is normal, Skin temperature is warm. Injury Description: No known injury. 22:36 Respiratory: Onset: The symptoms/episode began/occurred suddenly. cf2 Historical: - Allergies: no known allergies; - Home Meds: 1. albuterol sulfate 90 mcg/actuation Inhl HFAA every 4-6 hours (Last dose: 10/22/2016 18:30) 2. anoro inhaler daily (Last dose: 10/22/2016 08:00) 3. aspirin 325 mg Oral tab 1 tab once daily (Last dose: 10/22/2016 08:00) 4. antiinflammatory twice a day (Last dose: 10/22/2016 17:30) 5. ramipril 2.5 mg Oral cap once daily (Last dose: 10/22/2016 17:30) 6. simvastatin 20 mg Oral tab 1 tab once daily (Last dose: 10/22/2016 17:30) - PMHx: COPD; [place]; right toe surgery; Hypercholesterolemia; Hypertension; - PSHx: Hernia repair- Right inguinal (2010); Cataract Surgery- Bilateral; Hernia repair- Left inguinal (2009); - The history from nurses notes was reviewed: and I agree with what is documented. - Social history: Smoking status: Patient states former smoker of tobacco. Patient/guardian denies using alcohol, street drugs, No barriers to communication noted, The patient speaks fluent Angolan, Speaks appropriately for age. - : The pt / caregiver states he / she is not on anticoagulants. Home medication list is obtained from the patient. - Hospitalizations: : No recent hospitalization is reported. - Exposure Risk Screening:: None identified. - Immunization history:: All immunizations up-to-date. - Family history: Not pertinent. - Social history:: the patient is a former smoker, the patient drinks alcohol, socially. Screenin:28 Screening information is obtained from the patient. Fall risk: No risks identified. cf2 Assistance ADL's: requires no assistance with activities of daily living. Abuse/DV Screen: The patient / caregiver reports he/she is: not in a situation that causes fear, pain or injury. Nutritional screening: No deficits noted. Advance Directives: Further advance directive information is declined. home support is adequate. Assessment: 20:07 Adult Sepsis Screening: The patient does not have new or worsening altered mentation. cf2 Patient has a respiratory rate of greater than or equal to 22 (1 point). Systolic blood pressure is greater than 100. Patient has a qSOFA score of 1- Negative Sepsis Screen. General: Appears distressed, ill, Behavior is anxious, restless, Reports feeling ill for Denies fever, fatigue, chills. Pain: Denies pain. Neurological: No deficits noted. EENT: No deficits noted. Cardiovascular: Rhythm is sinus rhythm Chest pain is denied. Respiratory: Airway is patent Respiratory effort is labored, Respiratory pattern is tachypnea Breath sounds with rales bilaterally. Breath sounds with wheezes bilaterally. GI: No deficits noted. : No deficits noted. Derm: No deficits noted. Musculoskeletal: No deficits noted. Injury Description: No known injury. 22:35 Reassessment: Patient appears in no apparent distress at this time. Patient denies pain cf2 at this time. Patient states feeling better. Patient states symptoms have improved. Vital Signs: 19:20 BP 191 / 97; Pulse 106; Resp 26; Pulse Ox 97% ; Weight 74.84 kg (R); Height 5 ft. 11 elp in. (180.34 cm) (R); 19:28 Pulse 104 MON; Pulse Ox 96% ; cf2 19:31 Pulse 104 MON; Pulse Ox 98% ; cf2 19:35 Pulse 110 MON; Pulse Ox 97% ; cf2 19:38 Pulse 102 MON; Pulse Ox 97% ; cf2 19:41 Pulse 104 MON; Pulse Ox 97% ; cf2 19:44 Pulse 102 MON; Pulse Ox 96% ; cf2 19:46 Pulse 100 MON; Pulse Ox 96% ; cf2 19:49 Pulse 96 MON; Pulse Ox 96% ; cf2 19:53 Pulse 94 MON; Pulse Ox 96% ; cf2 19:59 Pulse 102 MON; Pulse Ox 98% ; cf2 20:03 Pulse 100 MON; Pulse Ox 99% ; cf2 20:05 Pulse 98 MON; Pulse Ox 99% ; cf2 20:07 Pulse 98 MON; Pulse Ox 99% ; cf2 20:22 Pulse 94 MON; Pulse Ox 97% ; cf2 20:23 BP 139 / 74; Pulse 94; Resp 26; Pulse Ox 97% on 2 lpm NC; Pain 2/10; cf2 20:28 Pulse 94 MON; Pulse Ox 98% ; cf2 20:35 Pulse 96 MON; Pulse Ox 99% ; cf2 20:41 Pulse 98 MON; Pulse Ox 96% ; cf2 20:45 Pulse 100 MON; Pulse Ox 95% ; cf2 20:49 Pulse 104 MON; Pulse Ox 99% ; cf2 21:57 BP 131 / 65; Pulse 104; Resp 22; Temp 97.6(O); Pulse Ox 96% on R/A; cf2 22:35 BP 132 / 78; Pulse 98; Resp 22; Temp 98.0; Pulse Ox 96% on R/A; Pain 0/10; cf2 19:20 Body Mass Index 23.01 (74.84 kg, 180.34 cm) elp Vitals: 19:20 Log In Time: October 22, 2016 at 19:18. RN notified that patient meets Red Flag elp criteria. ED Course: 19:20 Patient visited by Becka Cevallos PCA. elp 19:20 Otto Malin MD is Private Physician. elp 19:20 Patient moved to Waiting elp 19:21 Patient visited by Becka Cevallos PCA. elp 19:22 Patient moved to [facility] 19:28 The patient / caregiver is instructed regarding the plan of care and ED course. Patient cf2 has correct armband on for positive identification. Placed in gown. Bed in low position. Call light in reach. Side rails up X 1. Side rails up X2. court monitor on. Pulse ox on. NIBP on. Property :Personal belongings accompany Pt. Door closed. Noise minimized. Visitors limited. Lights dimmed. Moved to private room. Verbal reassurance given. Warm blanket given. Pillow given. Head of bed elevated. Diet: Patient is NPO. 19:28 Inserted saline lock: 20 gauge in left antecubital area and blood collected. The cf2 patient tolerated the procedure well. 19:30 Jonnathan Koroma MD is Attending Physician. pc 19:33 Triage Initiated ttb 19:34 Renea Felder,CARRIE is Primary Nurse. cf2 19:35 Patient visited by Kiki Pradhan RN. ttb 19:35 Patient visited by Renea Felder,CARRIE. cf2 19:35 Patient visited by Jonnathan Koroma MD. pc 19:55 -Influenza A&B Rapid Antigen - Nose Sent. cf2 19:55 BLOOD CULTURES Sent. cf2 19:55 -Blood Culture Sent. cf2 19:55 B-Type Natiuretic Peptide Sent. cf2 19:55 Basic Metabolic Profile Sent. cf2 19:55 CBC with Diff Sent. cf2 19:55 Cardiac Injury Profile Sent. cf2 19:55 Troponin Sent. cf2 20:01 -Arterial Blood Gas Sent. jh6 20:05 Patient visited by Renea Felder,CARRIE. cf2 20:07 Patient visited by Renea Felder,CARRIE. cf2 20:27 [facility] Payment Agreement was scanned into [employer] and attached to record. zo 20:33 EKG done. (by ED staff). Reviewed by Jonnathan Koroma MD. kb5 20:34 Patient visited by Sebas Van PCA. kb5 21:08 Patient visited by Renea Felder,CARRIE. cf2 21:16 Patient visited by Renea Felder RN. cf2 21:23 Patient visited by Sebas Van PCA. kb5 21:47 Patient visited by Renea Felder RN. cf2 21:53 Patient visited by Renea Felder RN. cf2 21:57 Patient visited by Renea Felder RN. cf2 21:57 No procedures done that require assistance. cf2 22:00 Otto Malin MD is Referral Physician. pc 22:00 Dread Bonilla is Referral Physician. pc 22:03 Patient visited by Renea Felder RN. cf2 22:11 Patient visited by Renea Felder RN. cf2 22:35 Patient visited by Renea Felder RN. cf2 22:35 Discontinued lock bleeding controlled, pressure dressing applied, No redness/swelling cf2 at site. 10/23 00:54 Chest, 1 View Returned. EDMS 07:36 EKG-ADULT Returned. EDMS 12:39 ECG/EKG was scanned into [employer] and attached to record. gb Administered Medications: 10/22 19:46 Drug: Solu-MEDROL 125 mg [Solu-Medrol 500 mg intravenous solution (125 mg)] Route: IVP; cf2 Site: left antecubital; 20:00 Drug: Albuterol-Ipratropium 1 neb [ipratropium-albuterol 0.5 mg-3 mg(2.5 mg base)/3 mL jh6 nebulization soln (1 neb)] Route: Nebulizer; 20:22 Drug: Albuterol-Ipratropium 1 neb [ipratropium-albuterol 0.5 mg-3 mg(2.5 mg base)/3 mL jh6 nebulization soln (1 neb)] Route: Nebulizer; 20:48 Drug: Albuterol-Ipratropium 1 neb [ipratropium-albuterol 0.5 mg-3 mg(2.5 mg base)/3 mL [facility] nebulization soln (1 neb)] Route: Nebulizer; 22:06 Drug: predniSONE 60 mg [prednisone 20 mg tablet (3 tabs)] Route: PO; cf2 22:10 Follow up: Response: Med's dispensed home cf2 22:07 Drug: azithromycin 500 mg [azithromycin 250 mg tablet (2 tabs)] Route: PO; cf2 22:10 Follow up: Response: No significant change. cf2 RT: 19:55 ABG's drawn from right radial artery pressure held for 5 minutes no bleeding noted 6 pressure bandage applied specimen sent pt. tolerated well. 20:00 Initial Med Neb Given as ordered Patient was instructed and evaluated on procedure jh6 Patient tolerated procedure well without adverse effect. Respiratory: Airway is patent Respiratory effort is even, labored, Respiratory pattern is regular symmetrical, Breath sounds are coarse in right upper lobe, left upper lobe, right middle lobe, left lower lobe and right lower lobe Breath sounds are diminished in right upper lobe, left upper lobe, right middle lobe, left lower lobe and right lower lobe. 20:10 Respiratory: Breath sounds are diminished in right upper lobe, left upper lobe, right jh6 middle lobe, left lower lobe and right lower lobe Breath sounds with wheezes in right upper lobe, left upper lobe, right middle lobe, left lower lobe and right lower lobe at expiration. 20:22 Subsequent Med Neb Given as ordered Patient was reinforced on procedure Patient 6 tolerated procedure well without adverse effect. Respiratory: Breath sounds are diminished in right upper lobe, left upper lobe, right middle lobe, left lower lobe and right lower lobe Breath sounds with wheezes in right upper lobe, left upper lobe, right middle lobe, left lower lobe and right lower lobe at expiration. 20:34 Respiratory: Airway is patent Respiratory effort is even, unlabored, Respiratory [facility] pattern is regular symmetrical, Breath sounds are coarse in right upper lobe, left upper lobe and right middle lobe Breath sounds are diminished in right upper lobe, left upper lobe, right middle lobe, left lower lobe and right lower lobe. 20:48 Subsequent Med Neb Given as ordered Patient was reinforced on procedure Patient 6 tolerated procedure well without adverse effect. Respiratory: Airway is patent Respiratory effort is even, unlabored, Respiratory pattern is regular symmetrical, Breath sounds are coarse in right upper lobe, left upper lobe and right middle lobe Breath sounds with rhonchi in right upper lobe, left upper lobe and right middle lobe Breath sounds are diminished in right upper lobe, left upper lobe, right middle lobe, left lower lobe and right lower lobe. 20:55 Respiratory: Airway is patent Respiratory effort is even, unlabored, Respiratory jh6 pattern is regular symmetrical, Breath sounds are coarse in left posterior upper lobe, right posterior upper lobe, left posterior lower lobe, right posterior middle lobe and right posterior lower lobe Breath sounds with wheezes in left posterior upper lobe, right posterior upper lobe, left posterior lower lobe, right posterior middle lobe and right posterior lower lobe at expiration at inspiration. Reports still some chest tightness. Order Results: Lab Order: -Arterial Blood Gas; SPEC'M 10/22/16 19:52 Test: ABG pH (ARTERIAL); Value: 7.401; Range: 7.350-7.450; Units: UNITS; Status: F Test: ABG PARTIAL PRESSURE CO2; Value: 36.6; Range: 35.0-45.0; Units: mmHg; Status: F Test: ABG PARTIAL PRESSURE O2; Value: 93.3; Range: 75.0-100.0; Units: mmHg; Status: F Test: ABG TOTAL CO2; Value: 23.3; Range: 23.0-31.0; Units: MEQ/L; Status: F Test: ABG HCO3; Value: 22.2; Range: 22.0-26.0; Units: MEQ/L; Status: F Test: ABG BASE EXCESS; Value: -2.0; Range: -2.0-2.0; Status: F Test: ABG STANDARD HCO3; Value: 22.8; Range: 22.0-26.0; Units: MEQ/L; Status: F Test: ABG O2 SATURATION; Value: 97.5; Range: 95.0-99.0; Units: %; Status: F Test: ABG DEVICE; Value: NASAL VISHAL; Status: F Lab Order: -Blood Culture; SPEC'M 10/22/16 19:49 Test: BLOOD CULTURE; Value: No growth after 24 hours . All specimens observed; Status: F Test: BLOOD CULTURE; Value: for 5 days. Results final at that time.; Status: F Test: BLOOD CULTURE; Value: No Growth after 48 hours. All Specimens observed; Status: F Test: BLOOD CULTURE; Value: for 7 days. Results final at that time.; Status: F Lab Order: B-Type Natiuretic Peptide; SPEC'M 10/22/16 19:49 Test: BRAIN NATRIURETIC PEPTIDE; Value: 9.2; Range: <100; Units: PG/ML; Status: F Lab Order: Basic Metabolic Profile; SPEC'M 10/22/16 19:49 Test: GLUCOSE, FASTING; Value: 102; Range: 80-110; Units: MG/DL; Status: F Test: BLOOD UREA NITROGEN; Value: 13; Range: 7-18; Units: MG/DL; Status: F Test: CREATININE FOR GFR; Value: 0.92; Range: 0.70-1.30; Units: MG/DL; Status: F Test: GLOMERULAR FILTRATION RATE; Value: > 60.0; Range: >49; Status: F Test: SODIUM LEVEL; Value: 144; Range: 136-145; Units: MEQ/L; Status: F Test: POTASSIUM SERUM; Value: 4.8; Range: 3.5-5.1; Units: MEQ/L; Status: F Test: CHLORIDE LEVEL; Value: 110; Range: 98-107; Abnormal: Above high normal; Units: MEQ/L; Status: F Test: CARBON DIOXIDE LEVEL; Value: 28; Range: 21-32; Units: MEQ/L; Status: F Test: ANION GAP; Value: 6; Range: 8-16; Abnormal: Below low normal; Units: MEQ/L; Status: F Test: CALCIUM LEVEL; Value: 8.9; Range: 8.8-10.2; Units: MG/DL; Status: F Test Note: ; Units are mL/min/1.73 m2 Chronic Kidney Disease Staging per NKF: Stage I & II GFR >=60 Normal to Mildly Decreased Stage III GFR 30-59 Moderately Decreased Stage IV GFR 15-29 Severely Decreased Stage V GFR <15 Very Little GFR Left ESRD GFR <15 on CHIEF SECURITY OFFICER Lab Order: CBC with Diff; SPEC'M 10/22/16 19:49 Test: WHITE BLOOD COUNT; Value: 5.3; Range: 4.0-10.0; Units: K/mm3; Status: F Test: RED BLOOD COUNT; Value: 5.18; Range: 4.30-6.10; Units: M/mm3; Status: F Test: HEMOGLOBIN; Value: 16.2; Range: 14.0-18.0; Units: g/dl; Status: F Test: HEMATOCRIT; Value: 46.9; Range: 42.0-52.0; Units: %; Status: F Test: MEAN CORPUSCULAR VOLUME; Value: 90.4; Range: 80.0-96.0; Units: fl; Status: F Test: MEAN CORPUSCULAR HEMOGLOBIN; Value: 31.2; Range: 27.0-33.0; Units: pg; Status: F Test: MEAN CORPUSCULAR HGB CONC; Value: 34.5; Range: 32.0-36.5; Units: g/dl; Status: F Test: RED CELL DISTRIBUTION WIDTH; Value: 13.2; Range: 11.5-14.5; Units: %; Status: F Test: PLATELET COUNT, AUTOMATED; Value: 146; Range: 150-450; Abnormal: Below low normal; Units: k/mm3; Status: F Test: NEUTROPHILS %; Value: 53.2; Range: 36.0-66.0; Units: %; Status: F Test: LYMPH %; Value: 30.8; Range: 24.0-44.0; Units: %; Status: F Test: MONO %; Value: 7.6; Range: 0.0-5.0; Abnormal: Above high normal; Units: %; Status: F Test: EOS %; Value: 5.0; Range: 0.0-3.0; Abnormal: Above high normal; Units: %; Status: F Test: BASO %; Value: 0.5; Range: 0.0-1.0; Units: %; Status: F Test: LARGE UNSTAINED CELL %; Value: 2.9; Range: 0.0-4.0; Units: %; Status: F Test: NEUTROPHILS #; Value: 2.8; Range: 1.8-7.7; Units: K/mm3; Status: F Test: LYMPH #; Value: 1.6; Range: 1.5-4.5; Units: K/mm3; Status: F Test: MONO #; Value: 0.4; Range: 0.0-0.8; Units: K/mm3; Status: F Test: EOS #; Value: 0.3; Range: 0.0-0.50; Units: K/mm3; Status: F Test: BASO #; Value: 0.0; Range: 0.0-0.2; Units: K/mm3; Status: F Test: LARGE UNSTAINED CELL #; Value: 0.2; Range: 0.0-0.4; Units: K/mm3; Status: F Lab Order: Cardiac Injury Profile; SPEC'M 10/22/16 19:49 Test: CPK CREATINE PHOSPHOKINASE; Value: 76; Range: 39-308; Units: U/L; Status: F Test: CK-MB VALUE MASS; Value: 1.5; Range: 0.0-3.6; Units: NG/ML; Status: F Test: MB/CK RELATIVE INDEX; Value: 1.97; Range: < OR =4; Status: F Test Note: ; DIAGNOSIS CRITERIA MMB ng/ml Relative Index (RI) NON-AMI < or = 5 N/A PEDROZA ZONE > 5 < or = 4 AMI > 5 > 4 Lab Order: Troponin; SPEC'M 10/22/16 19:49 Test: TROPONIN I; Value: < 0.02; Range: < 0.10; Units: NG/ML; Status: F Test Note: ; Troponin I Reference Interval for [employer] LOCI: 99th Percentile= 0.00-0.045 ng/ml Risk Stratification: <= 0.10 ng/ml Decreased Risk for Adverse Clinical Events. 0.10-1.50 ng/ml Increased Risk for Adverse Clinical Events. Evaluation of additional criterion and/or repeat testing in 2-6 hours is suggested to rule out myocardial damage. >= 1.50 ng/ml Indicative of Myocardial Injury. Lab Order: -Influenza A&B Rapid Antigen - Nose; SPEC'M 10/22/16 19:49 Test: INFLUENZA A RAPID SCR by ICA; Value: INFLUENZA A RESULTS NEGATIVE; Status: F Test: INFLUENZA A RAPID SCR by ICA; Value: Comments:; Status: F Test: INFLUENZA B RAPID SCR by ICA; Value: INFLUENZA B RESULTS NEGATIVE; Status: F Test Note: ; The Influenza test is a direct rapid immunoassay for the qualitative detection of Influenza viral antigen. Cell culture (Viral Culture) testing should be considered to confirm NEGATIVE results and to assist in detecting other viruses that can provide similar clinical symptoms. Please contact the lab within 24 hours ([phone]) if confirmatory testing is desired. Lab Order: BLOOD CULTURES; SPEC'M 10/22/16 19:49 Test: BLOOD CULTURE; Value: No growth after 24 hours . All specimens observed; Status: F Test: BLOOD CULTURE; Value: for 5 days. Results final at that time.; Status: F Test: BLOOD CULTURE; Value: No Growth after 48 hours. All Specimens observed; Status: F Test: BLOOD CULTURE; Value: for 7 days. Results final at that time.; Status: F Radiology Order: Chest, 1 View Test: Chest, 1 View REASON FOR EXAMINATION: Shortness of Breath; Clinical: Chest pain.; ; Comparison: 02/07/2016.; ; Findings:; Mediastinum and cardiac silhouette are stable and within normal limits. Lung; álvarez demonstrate chronic changes without acute consolidation, effusion, or; pneumothorax. 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 pc 22:35 Discharge Assessment: Patient awake, alert and oriented x 3. No cognitive and/or cf2 functional deficits noted. Patient verbalized understanding of disposition instructions. Patient awake and alert. Oriented to person, place and time. patient administered narcotics - no. The following High Risk Discharge criteria are identified: None. Discharged to home ambulatory. Condition: good Condition: stable Condition: improved. Discharge instructions given to patient, Instructed on discharge instructions, follow up and referral plans. medication usage, Demonstrated understanding of instructions, medications. No special radiology studies were completed. 22:36 Patient left the ED. cf2 Signatures: Dispatcher [employer] EDMS Jonnathan Koroma MD MD pc Zecher, Calvin, RN RN cz Sharon Schneider, Reg Reg gb Esther Shanks Kristopher, STEEL BOX TOE INSERTER STEEL BOX TOE INSERTER kb5 Reece Avila 6 Kiki Pradhan, RN RN ttBecka Velasquez, STEEL BOX TOE INSERTER STEEL BOX TOE INSERTER Renea Musa,RN RN cf2 Chart Complete MTDD
--- NOTE | 2016-10-24 23:38 | EDDOCDS ---
Physician Documentation [facility] Name: Jorge Paris Age: 70 yrs Sex: Male : 1945 Arrival Date: 10/22/2016 Time: 19:19 Bed 11 Private MD: Otto Malin Disposition: 10/22 21:59 Critical Care: Critical care not applicable. pc Disposition: 10/22/16 22:01 Discharged to Home/Self Care. Impression: Chronic obstructive pulmonary disease with (acute) exacerbation. - Condition is Stable. - Discharge Instructions: Chronic Obstructive Pulmonary Disease. - Prescriptions for Prednisone 10 mg Oral Tablet - take 1 tablet by ORAL route as directed Day1-3:6 po,day4-5:5 po,day6-7: 4 po,day8-9:3 po,fyp30-06:2 po,day 12-14:1 po; 49 tablet. Zithromax Z- Chu 250 mg Oral Tablet - take 2 tablet by ORAL route once daily for 3 days; 6 tablet. - Medication Reconciliation, Local Pharmacy Hours form. - Follow up: Otto Malin MD; When: Call to arrange an appointment; Reason: Continuance of care. Follow up: Dread Bonilla; When: As previously arranged; Reason: Continuance of care. - Problem is an acute exacerbation. - Symptoms have improved. HPI: 19:37 This 70 yrs old Male presents to ER via Walkin/Carried/Asstd with complaints pc of Breathing Difficulty. 19:37 The history is obtained from the patient. The patient presents with shortness of pc breath, with a prior history of COPD. The symptoms began gradually 2 days ago, and became worse today. The symptoms are continuous, and are steadily getting worse. There were circumstances that led to the current symptoms, including; a recent upper respiratory illness. The patient has shortness of breath at rest. At their worst, the symptoms were moderate. In the emergency department, the symptoms are unchanged. despite home interventions. The patient's shortness of breath is aggravated by coughing, is alleviated by nothing. The patient's dyspnea was accompanied with cough, non-productive, heart racing, anxiety. The patient's known risk factors for coronary artery disease include: high cholesterol, smoking cigarettes, hypertension. The patient has experienced similar episodes in the past, several times, and the symptoms today are exactly the same, to when the patient was apparently diagnosed with COPD exacerbation. The patient has not recently seen a physician. Historical: - Allergies: no known allergies; - Home Meds: 1. albuterol sulfate 90 mcg/actuation Inhl HFAA every 4-6 hours (Last dose: 10/22/2016 18:30) 2. anoro inhaler daily (Last dose: 10/22/2016 08:00) 3. aspirin 325 mg Oral tab 1 tab once daily (Last dose: 10/22/2016 08:00) 4. antiinflammatory twice a day (Last dose: 10/22/2016 17:30) 5. ramipril 2.5 mg Oral cap once daily (Last dose: 10/22/2016 17:30) 6. simvastatin 20 mg Oral tab 1 tab once daily (Last dose: 10/22/2016 17:30) - PMHx: COPD; NH; right toe surgery; Hypercholesterolemia; Hypertension; - PSHx: Hernia repair- Right inguinal (2010); Cataract Surgery- Bilateral; Hernia repair- Left inguinal (2009); - The history from nurses notes was reviewed: and I agree with what is documented. - Social history: Smoking status: Patient states former smoker of tobacco. Patient/guardian denies using alcohol, street drugs, No barriers to communication noted, The patient speaks fluent Icelandic, Speaks appropriately for age. - : The pt / caregiver states he / she is not on anticoagulants. Home medication list is obtained from the patient. - Hospitalizations: : No recent hospitalization is reported. - Exposure Risk Screening:: None identified. - Immunization history:: All immunizations up-to-date. - Family history: Not pertinent. - Social history:: the patient is a former smoker, the patient drinks alcohol, socially. ROS: 19:37 All systems are negative except as listed. The gastrointestinal and genitourinary pc components are also addressed in the HPI. Exam: 19:37 General Appearance: alert, the patient is in moderate distress. pc 19:37 EENT: normal eye inspection, ears, nose and throat normal, pharynx normal, mucous membranes moist 19:37 Neck: normal inspection. 19:37 Respiratory: no pleuritic chest pain, speaks in full sentences, the patient is in mild respiratory distress, auscultation reveals wheezes, diffusely, decreased air entry noted throughout RR 26, PO 96% on room air. 19:37 Cardiovascular: normal rhythm, no jugular venous distension appreciated, no murmurs, no gallop, no friction rub, peripheral pulses full and equal bilaterally, the heart rate is tachycardic, at 108 bpm. 19:37 Abdomen: non-tender, non-distended, no organomegaly. 19:37 Skin: normal color, warm, dry. 19:37 Extremities: non-tender, normal range of motion of all joints, no pedal edema. 19:37 Neuro: alert, oriented to person, place and time, cranial nerves normal as tested, no motor deficits, no sensory deficits. 19:37 Psych: normal mood. 22:00 General Appearance: no acute distress, alert. pc 22:00 Respiratory: no respiratory distress, breath sounds normal, no pleuritic chest pain, speaks in full sentences. Vital Signs: 19:20 BP 191 / 97; Pulse 106; Resp 26; Pulse Ox 97% ; Weight 74.84 kg / 164.99 lbs (R); elp Height 5 ft. 11 in. (180.34 cm) (R); 19:28 Pulse 104 MON; Pulse Ox 96% ; cf2 19:31 Pulse 104 MON; Pulse Ox 98% ; cf2 19:35 Pulse 110 MON; Pulse Ox 97% ; cf2 19:38 Pulse 102 MON; Pulse Ox 97% ; cf2 19:41 Pulse 104 MON; Pulse Ox 97% ; cf2 19:44 Pulse 102 MON; Pulse Ox 96% ; cf2 19:46 Pulse 100 MON; Pulse Ox 96% ; cf2 19:49 Pulse 96 MON; Pulse Ox 96% ; cf2 19:53 Pulse 94 MON; Pulse Ox 96% ; cf2 19:59 Pulse 102 MON; Pulse Ox 98% ; cf2 20:03 Pulse 100 MON; Pulse Ox 99% ; cf2 20:05 Pulse 98 MON; Pulse Ox 99% ; cf2 20:07 Pulse 98 MON; Pulse Ox 99% ; cf2 20:22 Pulse 94 MON; Pulse Ox 97% ; cf2 20:23 BP 139 / 74; Pulse 94; Resp 26; Pulse Ox 97% on 2 lpm NC; Pain 2/10; cf2 20:28 Pulse 94 MON; Pulse Ox 98% ; cf2 20:35 Pulse 96 MON; Pulse Ox 99% ; cf2 20:41 Pulse 98 MON; Pulse Ox 96% ; cf2 20:45 Pulse 100 MON; Pulse Ox 95% ; cf2 20:49 Pulse 104 MON; Pulse Ox 99% ; cf2 21:57 BP 131 / 65; Pulse 104; Resp 22; Temp 97.6(O); Pulse Ox 96% on R/A; cf2 22:35 BP 132 / 78; Pulse 98; Resp 22; Temp 98.0; Pulse Ox 96% on R/A; Pain 0/10; cf2 19:20 Body Mass Index 23.01 (74.84 kg, 180.34 cm) elp MDM: 19:36 Solu-MEDROL 125 mg IVP once ordered. pc 19:36 -Blood Culture (Adults Only), peripheral from different site, or from device/port/PICC pc etc. if present ordered. 19:36 Call Respiratory ordered. pc 19:36 Carcass Washer/Pulse Ox/q 15 min VS ordered. pc 19:36 IV Saline Lock ordered. pc 19:36 Rhythm Strip to chart ordered. pc 19:36 Albuterol-Ipratropium 1 neb Nebulizer every 20 minutes x3 ordered. pc 19:36 Obtain sample by nasopharyngeal swab ordered. pc 19:37 -Arterial Blood Gas Ordered. EDMS 19:37 B-Type Natiuretic Peptide Ordered. EDMS 19:37 Basic Metabolic Profile Ordered. EDMS 19:37 CBC with Diff Ordered. EDMS 19:37 Cardiac Injury Profile Ordered. EDMS 19:37 Troponin Ordered. EDMS 19:37 -Blood Culture Ordered. EDMS 19:37 Call Respiratory complete. ml3 19:37 Chest, 1 View Ordered. EDMS 19:37 Differential diagnosis: Bronchitis CHF, Chronic Obstructive Pulmonary Disease pc pneumonia, Unstable Angina Influenza. Plan: labs, nebs, meds, CXR, EKG. 19:38 ECG WITH READING ER PHYS+CARDIAG ordered. EDMS 19:38 -Influenza A&B Rapid Antigen - Nose Ordered. EDMS 19:38 -Blood Culture (Adults Only), peripheral from different site, or from device/port/PICC ml3 etc. if present complete. 19:39 BLOOD CULTURES Ordered. EDMS 20:15 Financial registration complete. zo 20:27 [facility] Payment Agreement was scanned into [employer] and attached to record. zo 20:33 Test interpretation: EKG. pc 20:51 Basic Metabolic Profile Reviewed. pc 20:51 CBC with Diff Reviewed. pc 20:51 B-Type Natiuretic Peptide Reviewed. pc 20:51 Cardiac Injury Profile Reviewed. pc 20:51 Troponin Reviewed. pc 20:51 -Influenza A&B Rapid Antigen - Nose Reviewed. pc 21:53 Ambulate Patient wt Pulse Oximetry ordered. pc 21:53 Repeat Temperature - Oral: Inform provider of result ordered. pc 21:59 Data reviewed: old medical records, vital signs, nurses notes, EKG(s), lab test pc results, all radiology studies and available results. Test interpretation: LAB - all labs as ordered have been reviewed, interpreted and considered in the overall management of the clinical presentation; X-RAY - interpreted by tn, 1 view chest chronic obstructive pulmonary disease pattern. The patient has been re-examined and re-evaluated. The patient's symptoms have resolved after treatment. Disposition: The historical points, examination findings, and any diagnostic results supporting the provided diagnosis, were discussed with the patient or legal guardian. The need for outpatient follow up with the provider listed on their discharge instructions was discussed. They were encouraged to return to [facility], or the nearest ED, if symptoms worsen/persist, or for any other questions/concerns. 22:03 predniSONE 60 mg PO Per package directions; dispense to go: take in the A.M. ordered. pc 22:03 azithromycin 500 mg PO once ordered. 10/23 12:39 ECG/EKG was scanned into [employer] and attached to record. EC/25 20:33 Rate is 93 beats/min. Rhythm is regular, Normal Sinus Rhythm. QRS [place] is Normal. [place] pc interval is normal. QRS interval is normal. QT interval is normal. No Q waves. T waves are Normal. No ST changes noted. Clinical impression: Normal Sinus Rhythm. Administered Medications: 19:46 Drug: Solu-MEDROL 125 mg [Solu-Medrol 500 mg intravenous solution (125 mg)] Route: IVP; cf2 Site: left antecubital; 20:00 Drug: Albuterol-Ipratropium 1 neb [ipratropium-albuterol 0.5 mg-3 mg(2.5 mg base)/3 mL jh6 nebulization soln (1 neb)] Route: Nebulizer; 20:22 Drug: Albuterol-Ipratropium 1 neb [ipratropium-albuterol 0.5 mg-3 mg(2.5 mg base)/3 mL jh6 nebulization soln (1 neb)] Route: Nebulizer; 20:48 Drug: Albuterol-Ipratropium 1 neb [ipratropium-albuterol 0.5 mg-3 mg(2.5 mg base)/3 mL jh6 nebulization soln (1 neb)] Route: Nebulizer; 22:06 Drug: predniSONE 60 mg [prednisone 20 mg tablet (3 tabs)] Route: PO; cf2 22:10 Follow up: Response: Med's dispensed home cf2 22:07 Drug: azithromycin 500 mg [azithromycin 250 mg tablet (2 tabs)] Route: PO; cf2 22:10 Follow up: Response: No significant change. cf2 Signatures: Dispatcher [employer] EDJonnathan Kaba MD MD pc Barnhardt, Gloria, Denis Reg gb Malini Steinberg, Community Case Manager Unit ml3 Esther Shanks Teresa, CARRIE RN ttb Renea Felder RN RN cf2 Reece Avila 6 The chart was reviewed and I authenticate all verbal orders and agree with the evaluation and treatment provided.Attachments: 20:27 [facility] Payment Agreement zo 10/23 12:39 ECG/EKG zach Chart Complete [facility]
== END 2016-10-22 22:36 | disposition home or self-care (01) ==
LOC: M ED 19:19
DX: J44.1 Chronic obstructive pulmonary disease with (acute) exacerbation (principal); I25.2 Old myocardial infarction; E78.00 Pure hypercholesterolemia, unspecified; I10 Essential (primary) hypertension; Z87.891 Personal history of nicotine dependence; Z79.51 Long term (current) use of inhaled steroids; Z79.899 Other long term (current) drug therapy; Z79.82 Long term (current) use of aspirin
CPT/HCPCS: 36415; 36600; 71010; 80048; 82550; 82553; 82803; 83880; 85025; 87040; 87804; 93005; 93041; 94640; 96374; 99285; J2930

== ENCOUNTER 2017-01-06 18:11 | Emergency (ER) | payer BC, MEDICARE ==
[~2017-01-06] VITALS: Ht 180.3 cm; Wt 77.1 kg
[2017-01-06] MEDS ORDERED: ALBU17IN INH (18:20)
[2017-01-06] MEDS ORDERED: SIMV40TA2 PO (18:20)
[2017-01-06] MEDS ORDERED: RAMI25CA PO (18:20)
[2017-01-06] MEDS ORDERED: ASPI325T28 PO (18:20)
--- NOTE | 2017-01-06 19:01 | REP ---
Portable chest, single AP view, the patient upright: Comparisons are 10/22/2016, portable chest and 02/07/2016 PA and lateral chest. The lung álvarez are clear. The cardiac size is normal. The penelope, mediastinum, and bony thorax are unremarkable. Impression: Negative portable chest. There is no interval change. Signed by Stewart De La Cruz MD 01/06/2017 06:52 P
[2017-01-06] MEDS ORDERED: dexameTHASONE 20 MG/5 ML VIAL (J1100) IV ONE (20:00)
[2017-01-06] MEDS: IPRATROPIUM 0.5MG/ALBUTEROL 2.5MG INH SOL UD 3ML (DUONEB)(J7620) NEB SCH ×3 (20:08→20:26)
[2017-01-06 20:20] LABS: ANION GAP 5 MEQ/L (8-16); BLOOD UREA NITROGEN 12 MG/DL (7-18); CALCIUM LEVEL 8.4 MG/DL (8.8-10.2); CARBON DIOXIDE LEVEL 28 MEQ/L (21-32); CHLORIDE LEVEL 108 MEQ/L (98-107); CREATININE FOR GFR 0.89 MG/DL (0.70-1.30); GLOMERULAR FILTRATION RATE > 60.0 (>42); GLUCOSE, FASTING 125 MG/DL (83-110); SODIUM LEVEL 141 MEQ/L (136-145)
[2017-01-06 20:24] LABS: BASO % 0.4 % (0.0-1.0); EOS # 0.2 K/mm3 (0.0-0.50); EOS % 2.7 % (0.0-3.0); LARGE UNSTAINED CELL # 0.1 K/mm3 (0.0-0.4); LARGE UNSTAINED CELL % 1.2 % (0.0-4.0); LYMPH # 1.1 K/mm3 (1.5-4.5); LYMPH % 14.9 % (24.0-44.0); MEAN CORPUSCULAR HEMOGLOBIN 31.1 pg (27.0-33.0); MEAN CORPUSCULAR HGB CONC 34.2 g/dl (32.0-36.5); MEAN CORPUSCULAR VOLUME 90.9 fl (80.0-96.0); MONO # 0.5 K/mm3 (0.0-0.8); MONO % 6.9 % (0.0-5.0); NEUTROPHILS # 5.2 K/mm3 (1.8-7.7); NEUTROPHILS % 73.9 % (36.0-66.0); PLATELET COUNT, AUTOMATED 136 k/mm3 (150-450); RED CELL DISTRIBUTION WIDTH 13.1 % (11.5-14.5)
[2017-01-06] MEDS ORDERED: PRED20TA PO (21:51)
[2017-01-06 21:54] VITALS: BP 105/58
--- NOTE | 2017-01-10 19:50 | ECGEPIP ---
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
== END 2017-01-06 21:59 | disposition home or self-care (01) ==
LOC: M ED 19:55
DX: J44.9 Chronic obstructive pulmonary disease, unspecified (principal); I10 Essential (primary) hypertension; E78.5 Hyperlipidemia, unspecified; Z79.899 Other long term (current) drug therapy; Z79.82 Long term (current) use of aspirin; H26.9 Unspecified cataract
CPT/HCPCS: 36415; 71010; 80048; 83880; 85025; 93005; 93041; 94640; 94760; 96374; 99284; J1100

== ENCOUNTER 2017-05-26 17:24 | Emergency (ER) | payer BC, MEDICARE ==
[~2017-05-26] VITALS: Ht 177.8 cm; Wt 77.2 kg
[~2017-05-26 17:24] MED LIST changes: +ALBU17IN INH; +ASPI325T28 PO; +PRED20TA PO; +RAMI25CA PO; +SIMV40TA2 PO
[2017-05-26] MEDS ORDERED: ANOR1AER (17:30)
[2017-05-26] MEDS ORDERED: methylPREDNISolone INJ 125 MG/2 ML VIAL (J2930) IV ONE (19:00)
[2017-05-26] MEDS: IPRATROPIUM 0.5MG/ALBUTEROL 2.5MG INH SOL UD 3ML (DUONEB)(J7620) NEB PRN ×3 (19:26→19:53)
[2017-05-26 19:34] LABS: BASO % 0.3 % (0.0-1.0); EOS # 0.3 K/mm3 (0.0-0.50); EOS % 3.4 % (0.0-3.0); LARGE UNSTAINED CELL # 0.1 K/mm3 (0.0-0.4); LARGE UNSTAINED CELL % 1.2 % (0.0-4.0); LYMPH # 1.3 K/mm3 (1.5-4.5); LYMPH % 15.2 % (24.0-44.0); MEAN CORPUSCULAR HEMOGLOBIN 31.1 pg (27.0-33.0); MEAN CORPUSCULAR HGB CONC 34.5 g/dl (32.0-36.5); MEAN CORPUSCULAR VOLUME 90.1 fl (80.0-96.0); MONO # 0.5 K/mm3 (0.0-0.8); MONO % 6.6 % (0.0-5.0); NEUTROPHILS # 5.6 K/mm3 (1.8-7.7); NEUTROPHILS % 73.3 % (36.0-66.0); PLATELET COUNT, AUTOMATED 162 k/mm3 (150-450); RED CELL DISTRIBUTION WIDTH 13.7 % (11.5-14.5); WHITE BLOOD COUNT 7.7 K/mm3 (4.0-10.0)
[2017-05-26 19:49] LABS: ANION GAP 9 MEQ/L (8-16); BLOOD UREA NITROGEN 11 MG/DL (7-18); CALCIUM LEVEL 8.9 MG/DL (8.8-10.2); CARBON DIOXIDE LEVEL 26 MEQ/L (21-32); CHLORIDE LEVEL 106 MEQ/L (98-107); CREATININE FOR GFR 0.88 MG/DL (0.70-1.30); GLOMERULAR FILTRATION RATE > 60.0 (>42); GLUCOSE, FASTING 107 MG/DL (83-110); POTASSIUM SERUM 4.1 MEQ/L (3.5-5.1); SODIUM LEVEL 141 MEQ/L (136-145)
[2017-05-26 19:50] VITALS: BP 136/76
--- NOTE | 2017-05-26 19:50 | REP ---
CHEST, PA AND LATERAL: 05/26/2017. Clinical history: Dyspnea and cough. Comparison: Portable chest 01/06/2017, chest x-ray 02/07/2016. Findings: Lungs are hyperinflated. Apical pleural scarring noted bilaterally. Underlying fibrosis and COPD. Some emphysematous changes mid and upper lung zones. Pulmonary artery hypertension seen. There are a few cuffed bronchi in the perihilar regions, which may reflect bronchitis or reactive airway disease. No dense consolidation or parenchymal mass evident. Degenerative changes in the spine without acute compression deformity. The aorta is minimally tortuous without aneurysm. Airway intact. No cardiomegaly or edema. Impression: 1. COPD. Some fibrotic changes, bullous emphysematous changes, apical pleuroparenchymal scarring and pulmonary artery hypertension. 2. No cardiomegaly, pulmonary edema, acute infiltrate or effusion. 3. Mild tortuosity aorta without aneurysm. Airway intact. Signed by Blake Sequeira MD 05/27/2017 04:54 P
[2017-05-26] MEDS ORDERED: PRED20TA PO (19:57)
--- NOTE | 2017-05-28 09:06 | ECGEPIP ---
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 Order Number: [id number] Reading MD: Farnaz De La Torre Measurements Intervals [place] Rate: 75 P: 64 WV: 189 QRS: 18 QRSD: 93 T: 56 QT: 366 QTc: 410 Interpretive Statements SINUS RHYTHM WITH MARKED SINUS ARRHYTHMIA LOW VOLTAGE LIMB NSTTW ABNORMALITY SIMILAR 01/06/17 Electronically Signed On 05-28-2017 9:06:23 EDT by Farnaz De La Torre
== END 2017-05-26 20:26 | disposition home or self-care (01) ==
LOC: M ED 17:24
DX: J44.1 Chronic obstructive pulmonary disease with (acute) exacerbation (principal); J06.9 Acute upper respiratory infection, unspecified; R93.1 Abnormal findings on diagnostic imaging of heart and coronary circulation; R91.8 Other nonspecific abnormal finding of lung field; R94.31 Abnormal electrocardiogram [ECG] [EKG]; Z87.891 Personal history of nicotine dependence; Z79.899 Other long term (current) drug therapy; Z79.82 Long term (current) use of aspirin; J30.89 Other allergic rhinitis; J30.2 Other seasonal allergic rhinitis
CPT/HCPCS: 71020; 80048; 85025; 93005; 94640; 94760; 96374; 99284; J2930

== ENCOUNTER → 2017-06-09 | Outpatient (REF) | payer BC, MEDICARE ==
[~2017-06-09] MED LIST changes: +ALBU83IN INH; +ANOR1AER
[2017-06-09 20:01] LABS: CALCIUM OXALATE CRYSTALS SMALL
== END ==
LOC: M SMT 15:05
PROVIDERS: ATTEND Nurse Practitioner Women's Health
DX: Z12.5 Encounter for screening for malignant neoplasm of prostate (principal); R39.13 Splitting of urinary stream
CPT/HCPCS: 81001; 87086; G0103

== ENCOUNTER 2017-07-20 22:28 | Emergency (ER) | payer BC, MEDICARE ==
[~2017-07-20] VITALS: Ht 177.8 cm; Wt 77.2 kg
[~2017-07-20 22:28] MED LIST changes: -ALBU83IN INH
[2017-07-20] MEDS ORDERED: ALBU83IN INH (22:38)
[2017-07-20] MEDS ORDERED: methylPREDNISolone INJ 125 MG/2 ML VIAL (J2930) IV ONE (23:15)
[2017-07-20] MEDS ORDERED: ALBUTEROL SULFATE 2.5 MG/0.5 ML INH NEB SOLN NEB PRN (23:15)
[2017-07-20 23:29] LABS: BASO % 0.6 % (0.0-1.0); EOS # 0.2 10^3/uL (0.0-0.50); EOS % 3.8 % (0.0-3.0); IMMATURE GRANULOCYTE % 0.3 % (0-0); LYMPH # 1.4 10^3/uL (1.5-4.5); LYMPH % 22.2 % (24.0-44.0); MEAN CORPUSCULAR HEMOGLOBIN 30.6 pg (27.0-33.0); MEAN CORPUSCULAR HGB CONC 33.1 g/dl (32.0-36.5); MEAN CORPUSCULAR VOLUME 92.6 fl (80.0-96.0); MONO # 0.6 10^3/uL (0.0-0.8); MONO % 8.9 % (0.0-5.0); NEUTROPHILS # 4.1 10^3/uL (1.8-7.7); NEUTROPHILS % 64.2 % (36.0-66.0); PLATELET COUNT, AUTOMATED 153 10^3/uL (150-450); RED CELL DISTRIBUTION WIDTH 14.1 % (11.5-14.5); WHITE BLOOD COUNT 6.4 10^3/uL (4.0-10.0)
[2017-07-20] MEDS ORDERED: IPRATROPIUM 0.5MG/ALBUTEROL 2.5MG INH SOL UD 3ML (DUONEB)(J7620) NEB ONE (23:45)
[2017-07-21] MEDS ORDERED: IPRATROPIUM 0.5MG/ALBUTEROL 2.5MG INH SOL UD 3ML (DUONEB)(J7620) NEB ONE (00:15)
[2017-07-21 00:36] LABS: ANION GAP 5 MEQ/L (8-16); BLOOD UREA NITROGEN 12 MG/DL (7-18); CALCIUM LEVEL 8.5 MG/DL (8.8-10.2); CARBON DIOXIDE LEVEL 30 MEQ/L (21-32); CHLORIDE LEVEL 104 MEQ/L (98-107); GLOMERULAR FILTRATION RATE > 60.0 (>42); GLUCOSE, FASTING 141 MG/DL (83-110); POTASSIUM SERUM 3.7 MEQ/L (3.5-5.1); SODIUM LEVEL 139 MEQ/L (136-145)
[2017-07-21] MEDS ORDERED: PRED20TA PO (01:52)
[2017-07-21 01:58] VITALS: BP 138/72
--- NOTE | 2017-07-21 07:54 | REP ---
The lung álvarez appear hyper aerated. There is crowding of the lung markings in the lower lung zones. Findings are compatible with COPD but requires clinical confirmation. There are no infiltrates, effusions or masses. Cardiac size is normal. The penelope, mediastinum, bony thorax are unremarkable. Impression: No acute cardiopulmonary findings. There are findings compatible with COPD. Signed by Stewart De La Cruz MD 07/21/2017 07:46 A
--- NOTE | 2017-07-21 09:46 | ECGEPIP ---
Stationary ECG Study 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
== END 2017-07-21 01:59 | disposition home or self-care (01) ==
LOC: M ED 22:28
DX: J44.9 Chronic obstructive pulmonary disease, unspecified (principal); I49.9 Cardiac arrhythmia, unspecified; I25.2 Old myocardial infarction; J30.89 Other allergic rhinitis; Z95.5 Presence of coronary angioplasty implant and graft; Z87.891 Personal history of nicotine dependence; Z82.49 Family history of ischemic heart disease and other diseases of the circulatory system; Z79.82 Long term (current) use of aspirin; Z79.899 Other long term (current) drug therapy
CPT/HCPCS: 71010; 80048; 82550; 82553; 83605; 83880; 85025; 93005; 93041; 94640; 94760; 96374; 99284; J2930

== ENCOUNTER 2017-09-20 22:12 | Emergency (ER) | payer BC, MEDICARE ==
[2017-09-20] MEDS: dexameTHASONE 20 MG/5 ML VIAL (J1100) IV (22:45)
[2017-09-20] MEDS: ALBUTEROL SULFATE 2.5 MG/0.5 ML INH NEB SOLN INH ×3 (23:02→23:03)
[2017-09-21 00:11] LABS: ANION GAP 6 MEQ/L (8-16); BLOOD UREA NITROGEN 10 MG/DL (7-18); CALCIUM LEVEL 8.7 MG/DL (8.8-10.2); CARBON DIOXIDE LEVEL 31 MEQ/L (21-32); CHLORIDE LEVEL 104 MEQ/L (98-107); CREATININE FOR GFR 0.94 MG/DL (0.70-1.30); GLOMERULAR FILTRATION RATE > 60.0 (>42); GLUCOSE, FASTING 100 MG/DL (83-110); POTASSIUM SERUM 3.8 MEQ/L (3.5-5.1); SODIUM LEVEL 141 MEQ/L (136-145)
[2017-09-21] MEDS: ALBUTEROL SULFATE 2.5 MG/0.5 ML INH NEB SOLN INH ×3 (00:19→00:20)
[2017-09-21 00:42] LABS: BASO % 0.7 % (0.0-1.0); EOS # 0.3 10^3/uL (0.0-0.50); EOS % 5.4 % (0.0-3.0); IMMATURE GRANULOCYTE % 0.3 % (0-0); LYMPH # 1.8 10^3/uL (1.5-4.5); LYMPH % 29.3 % (24.0-44.0); MEAN CORPUSCULAR HEMOGLOBIN 30.9 pg (27.0-33.0); MEAN CORPUSCULAR HGB CONC 33.8 g/dl (32.0-36.5); MEAN CORPUSCULAR VOLUME 91.6 fl (80.0-96.0); MONO # 0.6 10^3/uL (0.0-0.8); MONO % 10.4 % (0.0-5.0); NEUTROPHILS # 3.3 10^3/uL (1.8-7.7); NEUTROPHILS % 53.9 % (36.0-66.0); PLATELET COUNT, AUTOMATED 178 10^3/uL (150-450); RED CELL DISTRIBUTION WIDTH 13.1 % (11.5-14.5); WHITE BLOOD COUNT 6.1 10^3/uL (4.0-10.0)
[2017-09-21] MEDS: MAG SULF 1GM/100ML (MAG RUN) 1 GM in APPROPRIATE DILUENT 1 EA IV ×3 (01:00→02:00)
== END 2017-09-21 03:43 | disposition home or self-care (01) ==
LOC: M ED 09-21 03:43
DX: J44.1 Chronic obstructive pulmonary disease with (acute) exacerbation (principal); Z87.891 Personal history of nicotine dependence
CPT/HCPCS: J1100

== ENCOUNTER → 2017-10-06 | Outpatient (REF) | payer BC, MEDICARE ==
[2017-10-06 19:36] LABS: APPEARANCE, URINE HAZY (CLEAR); BACTERIA, URINE AUTO NEGATIVE (NEGATIVE); BILIRUBIN, URINE AUTO NEGATIVE (NEGATIVE); BLOOD, URINE BLOOD 2+ (NEGATIVE); CALCIUM OXALATE CRYSTALS SMALL; COLOR, URINE YELLOW (YELLOW); GLUCOSE, URINE (UA) AUTO NEGATIVE (NEGATIVE); KETONE, URINE AUTO NEGATIVE (NEGATIVE); LEUKOCYTE ESTERASE, URINE AUTO NEGATIVE (NEGATIVE); MUCUS, URINE SMALL (NEGATIVE); NITRITE, URINE AUTO NEGATIVE (NEGATIVE); PROTEIN, URINE AUTO NEGATIVE (NEGATIVE); RBC, URINE AUTO 19 /HPF (0-3); SPECIFIC GRAVITY URINE AUTO 1.024 (1.002-1.035); SQUAMOUS EPITHELIAL CELL UR AU 0 /HPF (0-6); UROBILINOGEN, URINE AUTO 0.2 mg/dL (0.0-2.0); WBC, URINE AUTO 3 /HPF (0-3)
== END ==
LOC: M SMT 17:58
DX: N40.1 Benign prostatic hyperplasia with lower urinary tract symptoms (principal)
CPT/HCPCS: 81001

== ENCOUNTER → 2017-10-22 | Outpatient (CLI) | payer BC ==
[2017-10-22 12:32] LABS: BASO % 0.2 % (0.0-1.0); HEMATOCRIT 48.8 % (42.0-52.0); HEMOGLOBIN 16.3 g/dl (14.0-18.0); IMMATURE GRANULOCYTE % 0.4 % (0-0); LYMPH # 0.9 10^3/uL (1.5-4.5); LYMPH % 18.5 % (24.0-44.0); MEAN CORPUSCULAR HEMOGLOBIN 30.5 pg (27.0-33.0); MEAN CORPUSCULAR HGB CONC 33.4 g/dl (32.0-36.5); MEAN CORPUSCULAR VOLUME 91.4 fl (80.0-96.0); MONO # 0.7 10^3/uL (0.0-0.8); NEUTROPHILS # 3.2 10^3/uL (1.8-7.7); NEUTROPHILS % 65.9 % (36.0-66.0); PLATELET COUNT, AUTOMATED 216 10^3/uL (150-450); RED BLOOD COUNT 5.34 10^6/uL (4.30-6.10); RED CELL DISTRIBUTION WIDTH 13.2 % (11.5-14.5); WHITE BLOOD COUNT 4.9 10^3/uL (4.0-10.0)
== END ==
LOC: M SMT 09:20
DX: J44.1 Chronic obstructive pulmonary disease with (acute) exacerbation (principal)
CPT/HCPCS: 85025

== ENCOUNTER 2018-01-26 04:05 | Emergency (ER) | payer BC, MEDICARE ==
[2018-01-26 04:27] LABS: BASO % 0.8 % (0.0-1.0); EOS # 0.3 10^3/uL (0.0-0.50); EOS % 5.6 % (0.0-3.0); HEMATOCRIT 51.2 % (42.0-52.0); HEMOGLOBIN 16.9 g/dl (13.5-17.5); IMMATURE GRANULOCYTE % 0.2 % (0-3.0); LYMPH # 1.6 10^3/uL (1.5-4.5); LYMPH % 30.8 % (24.0-44.0); MEAN CORPUSCULAR HEMOGLOBIN 30.5 pg (27.0-33.0); MEAN CORPUSCULAR VOLUME 92.4 fl (80.0-96.0); MONO # 0.6 10^3/uL (0.0-0.8); MONO % 12.3 % (0.0-5.0); NEUTROPHILS # 2.6 10^3/uL (1.8-7.7); NEUTROPHILS % 50.3 % (36.0-66.0); PLATELET COUNT, AUTOMATED 150 10^3/uL (150-450); RED BLOOD COUNT 5.54 10^6/uL (4.30-6.10); RED CELL DISTRIBUTION WIDTH 13.6 % (11.5-14.5); WHITE BLOOD COUNT 5.2 10^3/uL (4.0-10.0)
[2018-01-26] MEDS: methylPREDNISolone INJ 125 MG/2 ML VIAL (J2930) IV (04:29)
[2018-01-26] MEDS: IPRATROPIUM 0.5MG/ALBUTEROL 2.5MG INH SOL UD 3ML (DUONEB)(J7620) NEB ×6 (04:32→06:23)
[2018-01-26 04:40] LABS: ABG BASE EXCESS -1.6 (-2.0-2.0); ABG O2 SATURATION 98.3 % (95.0-99.0); ABG PARTIAL PRESSURE CO2 43.4 mmHg (35.0-45.0); ABG PARTIAL PRESSURE O2 108.5 mmHg (75.0-100.0); ABG STANDARD HCO3 23.2 MEQ/L (22.0-26.0); ABG TOTAL CO2 25.3 MEQ/L (23.0-31.0)
[2018-01-26 04:57] LABS: ANION GAP 8 MEQ/L (8-16); BLOOD UREA NITROGEN 9 MG/DL (7-18); CALCIUM LEVEL 8.4 MG/DL (8.8-10.2); CARBON DIOXIDE LEVEL 26 MEQ/L (21-32); CHLORIDE LEVEL 110 MEQ/L (98-107); CK-MB VALUE MASS 3.1 NG/ML (<3.6); CPK CREATINE PHOSPHOKINASE 213 U/L (39-308); CREATININE FOR GFR 0.93 MG/DL (0.70-1.30); GLOMERULAR FILTRATION RATE > 60.0 (>42); GLUCOSE, FASTING 106 MG/DL (70-100); MB/CK RELATIVE INDEX 1.45 (< OR =4); POTASSIUM SERUM 4.1 MEQ/L (3.5-5.1); SODIUM LEVEL 144 MEQ/L (136-145); TROPONIN I < 0.02 NG/ML (< 0.10)
== END 2018-01-26 07:00 | disposition home or self-care (01) ==
LOC: M ED 04:05
DX: J44.1 Chronic obstructive pulmonary disease with (acute) exacerbation (principal); Z87.891 Personal history of nicotine dependence; Z79.899 Other long term (current) drug therapy; Z79.82 Long term (current) use of aspirin
CPT/HCPCS: J2930

== ENCOUNTER 2018-02-21 06:22 | Emergency (ER) | payer BC, MEDICARE ==
[2018-02-21 07:01] LABS: BASO % 0.8 % (0.0-1.0); EOS # 0.2 10^3/uL (0.0-0.50); EOS % 5.3 % (0.0-3.0); HEMATOCRIT 46.4 % (42.0-52.0); HEMOGLOBIN 15.8 g/dl (13.5-17.5); IMMATURE GRANULOCYTE % 0.3 % (0-3.0); LYMPH # 0.9 10^3/uL (1.5-4.5); LYMPH % 23.1 % (24.0-44.0); MEAN CORPUSCULAR HGB CONC 34.1 g/dl (32.0-36.5); MONO # 0.4 10^3/uL (0.0-0.8); MONO % 10.5 % (0.0-5.0); NEUTROPHILS # 2.4 10^3/uL (1.8-7.7); PLATELET COUNT, AUTOMATED 158 10^3/uL (150-450); RED CELL DISTRIBUTION WIDTH 13.5 % (11.5-14.5)
[2018-02-21] MEDS: methylPREDNISolone INJ 125 MG/2 ML VIAL (J2930) IV (07:11)
[2018-02-21] MEDS: IPRATROPIUM 0.5MG/ALBUTEROL 2.5MG INH SOL UD 3ML (DUONEB)(J7620) NEB ×3 (07:12→08:16)
[2018-02-21 07:21] LABS: ANION GAP 7 MEQ/L (8-16); BLOOD UREA NITROGEN 12 MG/DL (7-18); CALCIUM LEVEL 8.2 MG/DL (8.8-10.2); CARBON DIOXIDE LEVEL 26 MEQ/L (21-32); CHLORIDE LEVEL 110 MEQ/L (98-107); CK-MB VALUE MASS 2.7 NG/ML (<3.6); CPK CREATINE PHOSPHOKINASE 124 U/L (39-308); CREATININE FOR GFR 0.98 MG/DL (0.70-1.30); GLOMERULAR FILTRATION RATE > 60.0 (>42); GLUCOSE, FASTING 102 MG/DL (70-100); MB/CK RELATIVE INDEX 2.17 (< OR =4); POTASSIUM SERUM 4.2 MEQ/L (3.5-5.1); SODIUM LEVEL 143 MEQ/L (136-145); TROPONIN I < 0.02 NG/ML (< 0.10)
== END 2018-02-21 09:01 | disposition home or self-care (01) ==
LOC: M ED 06:22
DX: J44.1 Chronic obstructive pulmonary disease with (acute) exacerbation (principal); E78.5 Hyperlipidemia, unspecified; I25.2 Old myocardial infarction; Z79.899 Other long term (current) drug therapy; Z79.51 Long term (current) use of inhaled steroids; Z79.82 Long term (current) use of aspirin; Z87.891 Personal history of nicotine dependence
CPT/HCPCS: J2930

== ENCOUNTER 2018-03-02 03:15 | Emergency (ER) | payer BC, MEDICARE ==
[2018-03-02] MEDS: IPRATROPIUM 0.5MG/ALBUTEROL 2.5MG INH SOL UD 3ML (DUONEB)(J7620) NEB ×4 (03:57→04:32)
[2018-03-02 04:15] LABS: ABG BASE EXCESS 0.3 (-2.0-2.0); ABG HCO3 24.9 MEQ/L (22.0-26.0); ABG O2 SATURATION 95.7 % (95.0-99.0); ABG PARTIAL PRESSURE CO2 40.4 mmHg (35.0-45.0); ABG PARTIAL PRESSURE O2 77.4 mmHg (75.0-100.0); ABG STANDARD HCO3 24.7 MEQ/L (22.0-26.0); ABG TOTAL CO2 26.2 MEQ/L (23.0-31.0); ABG pH (ARTERIAL) 7.408 UNITS (7.350-7.450)
[2018-03-02 04:16] LABS: BASO % 0.4 % (0.0-1.0); EOS # 0.2 10^3/uL (0.0-0.50); EOS % 4.4 % (0.0-3.0); HEMOGLOBIN 16.9 g/dl (13.5-17.5); IMMATURE GRANULOCYTE % 0.5 % (0-3.0); LYMPH # 1.3 10^3/uL (1.5-4.5); MEAN CORPUSCULAR HEMOGLOBIN 30.8 pg (27.0-33.0); MEAN CORPUSCULAR HGB CONC 33.8 g/dl (32.0-36.5); MEAN CORPUSCULAR VOLUME 91.1 fl (80.0-96.0); MONO # 0.6 10^3/uL (0.0-0.8); MONO % 10.7 % (0.0-5.0); NEUTROPHILS # 3.4 10^3/uL (1.8-7.7); PLATELET COUNT, AUTOMATED 180 10^3/uL (150-450); RED BLOOD COUNT 5.49 10^6/uL (4.30-6.10); RED CELL DISTRIBUTION WIDTH 13.4 % (11.5-14.5); WHITE BLOOD COUNT 5.5 10^3/uL (4.0-10.0)
[2018-03-02] MEDS: methylPREDNISolone INJ 125 MG/2 ML VIAL (J2930) IV (04:19)
[2018-03-02 04:35] LABS: ANION GAP 6 MEQ/L (8-16); BLOOD UREA NITROGEN 11 MG/DL (7-18); CALCIUM LEVEL 8.4 MG/DL (8.8-10.2); CARBON DIOXIDE LEVEL 29 MEQ/L (21-32); CHLORIDE LEVEL 107 MEQ/L (98-107); CPK CREATINE PHOSPHOKINASE 64 U/L (39-308); CREATININE FOR GFR 0.92 MG/DL (0.70-1.30); GLOMERULAR FILTRATION RATE > 60.0 (>42); GLUCOSE, FASTING 100 MG/DL (70-100); MB/CK RELATIVE INDEX 3.12 (< OR =4); NT-PRO BNP 45 PG/ML (<125); POTASSIUM SERUM 4.4 MEQ/L (3.5-5.1); SODIUM LEVEL 142 MEQ/L (136-145); TROPONIN I < 0.02 NG/ML (< 0.10)
== END 2018-03-02 06:18 | disposition home or self-care (01) ==
LOC: M ED 03:15
DX: J45.901 Unspecified asthma with (acute) exacerbation (principal); J44.9 Chronic obstructive pulmonary disease, unspecified; Z87.891 Personal history of nicotine dependence; Z79.82 Long term (current) use of aspirin; Z79.899 Other long term (current) drug therapy
CPT/HCPCS: J2930

== ENCOUNTER → 2018-08-03 | Outpatient (CLI) | payer MEDICARE ==
[2018-08-03 07:25] LABS: HEMATOCRIT 49.4 % (42.0-52.0); HEMOGLOBIN 16.5 g/dl (13.5-17.5); MEAN CORPUSCULAR HEMOGLOBIN 30.7 pg (27.0-33.0); MEAN CORPUSCULAR HGB CONC 33.4 g/dl (32.0-36.5); MEAN CORPUSCULAR VOLUME 91.8 fl (80.0-96.0); PLATELET COUNT, AUTOMATED 168 10^3/uL (150-450); RED BLOOD COUNT 5.38 10^6/uL (4.30-6.10); RED CELL DISTRIBUTION WIDTH 13.3 % (11.5-14.5); WHITE BLOOD COUNT 4.8 10^3/uL (4.0-10.0)
[2018-08-03 07:45] LABS: ALBUMIN 3.7 GM/DL (3.2-5.2); ALBUMIN/GLOBULIN RATIO 1.68 (1.00-1.93); ALKALINE PHOSPHATASE 60 U/L (45-117); ALT/SGPT 28 U/L (12-78); ANION GAP 4 MEQ/L (8-16); AST/SGOT 18 U/L (7-37); BILIRUBIN,TOTAL 0.8 MG/DL (0.2-1.0); BLOOD UREA NITROGEN 8 MG/DL (7-18); CALCIUM LEVEL 8.7 MG/DL (8.8-10.2); CARBON DIOXIDE LEVEL 31 MEQ/L (21-32); CHLORIDE LEVEL 106 MEQ/L (98-107); CREATININE FOR GFR 0.85 MG/DL (0.70-1.30); GLOMERULAR FILTRATION RATE > 60.0 (>42); GLUCOSE, FASTING 106 MG/DL (70-100); SODIUM LEVEL 141 MEQ/L (136-145); TOTAL PROTEIN 5.9 GM/DL (6.4-8.2)
== END ==
LOC: M LAB 06:50
DX: R10.9 Unspecified abdominal pain (principal)
CPT/HCPCS: 80053

== ENCOUNTER → 2018-08-06 | Outpatient (CLI) | payer MEDICARE ==
[~2018-08-06] MED LIST changes: -ALBU17IN INH; -ANOR1AER; -ASPI325T28 PO; +GASTROGRAFIN SOLUTION 30ML (Q9963) As Ordered; -HYDR-3713 PO; +ISOVUE-370 76% 100ML VIAL (Q9967) As Ordered; -PRED20TA PO; -RAMI25CA PO; -SIMV40TA2 PO
== END ==
LOC: M RAD 08:48
DX: R10.11 Right upper quadrant pain (principal); N20.0 Calculus of kidney
CPT/HCPCS: Q9963

== ENCOUNTER → 2018-12-07 | Outpatient (CLI) | payer MEDICARE ==
[~2018-12-07] MED LIST changes: +ALBU17IN INH; +ALBU83IN INH; +ANOR1AER; +ASPI-222 PO; +BREO1INH3 INH; +FINA5TAB2; +FLOM0.4C39 PO; -GASTROGRAFIN SOLUTION 30ML (Q9963) As Ordered; +HYDR-3713 PO; +IPRA0.00 IN; -ISOVUE-370 76% 100ML VIAL (Q9967) As Ordered; +PRED20TA PO; +PRED5TA PO; +RAMI1CAP22 PO; +SIMV40TA2 PO; +STOO100C PO; +TAMSULOSIN; +VENTAER INH
[2018-12-07 07:41] LABS: APPEARANCE, URINE CLEAR (CLEAR); BACTERIA, URINE AUTO NEGATIVE (NEGATIVE); BILIRUBIN, URINE AUTO NEGATIVE (NEGATIVE); BLOOD, URINE BLOOD 1+ (NEGATIVE); COLOR, URINE YELLOW (YELLOW); GLUCOSE, URINE (UA) AUTO NEGATIVE (NEGATIVE); KETONE, URINE AUTO NEGATIVE (NEGATIVE); LEUKOCYTE ESTERASE, URINE AUTO NEGATIVE (NEGATIVE); MUCUS, URINE SMALL (NEGATIVE); NITRITE, URINE AUTO NEGATIVE (NEGATIVE); PROTEIN, URINE AUTO NEGATIVE (NEGATIVE); RBC, URINE AUTO 5 /HPF (0-3); SPECIFIC GRAVITY URINE AUTO 1.015 (1.002-1.035); SQUAMOUS EPITHELIAL CELL UR AU 0 /HPF (0-6); UROBILINOGEN, URINE AUTO 0.2 mg/dL (0.0-2.0); WBC, URINE AUTO 2 /HPF (0-3)
[2018-12-07 07:50] LABS: HEMOGLOBIN 16.8 g/dl (13.5-17.5); MEAN CORPUSCULAR HEMOGLOBIN 31.1 pg (27.0-33.0); MEAN CORPUSCULAR HGB CONC 33.6 g/dl (32.0-36.5); MEAN CORPUSCULAR VOLUME 92.6 fl (80.0-96.0); PLATELET COUNT, AUTOMATED 168 10^3/uL (150-450); WHITE BLOOD COUNT 5.1 10^3/uL (4.0-10.0)
[2018-12-07 08:01] LABS: BLOOD UREA NITROGEN 8 MG/DL (7-18); CALCIUM LEVEL 8.4 MG/DL (8.8-10.2); CARBON DIOXIDE LEVEL 31 MEQ/L (21-32); CHLORIDE LEVEL 105 MEQ/L (98-107); CREATININE FOR GFR 0.94 MG/DL (0.70-1.30); GLOMERULAR FILTRATION RATE > 60.0 (>42); GLUCOSE, FASTING 102 MG/DL (70-100); POTASSIUM SERUM 4.6 MEQ/L (3.5-5.1); SODIUM LEVEL 141 MEQ/L (136-145)
== END ==
LOC: M LAB 07:00
PROVIDERS: ATTEND Surgery
DX: R10.84 Generalized abdominal pain (principal); R30.0 Dysuria

== ENCOUNTER 2018-12-11 12:28 | Inpatient (IN) | payer MEDICARE ==
[~2018-12-11] VITALS: Ht 177.8 cm; Wt 77.1 kg
[~2018-12-11 12:28] MED LIST changes: -BREO1INH3 INH; -FLOM0.4C39 PO; -PRED5TA PO; -STOO100C PO; -VENTAER INH
[2018-12-11] MEDS ORDERED: NS 1,000 ML IV SCH (12:42)
[2018-12-11] MEDS ORDERED: STOO100C PO (12:44)
[2018-12-11] MEDS ORDERED: BREO1INH3 INH (12:44)
[2018-12-11] MEDS ORDERED: ONDANSETRON 4MG/2ML VIAL (J2405) IV ONE ×2 (12:45→16:15)
[2018-12-11] MEDS ORDERED: MORPHINE 4 MG/ML 1ML VIAL/SYRINGE (J2270) IV ONE ×2 (13:00→13:45)
--- NOTE | 2018-12-11 13:25 | REP ---
Chest one-view HISTORY: Cough Comparison: 03/02/2018 The lungs are clear. A minimal increase in interstitial markings is present in the lungs consistent with chronic interstitial change. A calcified pleural plaque is present in the left upper lateral hemithorax. Bilateral apical pleural thickening is present. normal in appearance. Impression: Chronic interstitial change. Electronically Signed by Hernandez Yañez MD 12/11/2018 01:16 P
[2018-12-11] MEDS: GASTROGRAFIN SOLUTION 30ML PO SCH ×2 (13:42→14:45)
[2018-12-11] MEDS ORDERED: PROMETHAZINE INJ 25 MG/ML VIAL (J2550) IV ONE (13:45)
[2018-12-11 13:52] LABS: BASO % 0.2 % (0.0-1.0); EOS % 0.1 % (0.0-3.0); HEMATOCRIT 50.5 % (42.0-52.0); HEMOGLOBIN 17.3 g/dl (13.5-17.5); LYMPH # 0.7 10^3/uL (1.5-4.5); MEAN CORPUSCULAR HEMOGLOBIN 31.4 pg (27.0-33.0); MEAN CORPUSCULAR HGB CONC 34.3 g/dl (32.0-36.5); MEAN CORPUSCULAR VOLUME 91.7 fl (80.0-96.0); MONO # 0.6 10^3/uL (0.0-0.8); MONO % 4.9 % (0.0-5.0); NEUTROPHILS # 9.9 10^3/uL (1.8-7.7); NEUTROPHILS % 88.3 % (36.0-66.0); PLATELET COUNT, AUTOMATED 175 10^3/uL (150-450); RED BLOOD COUNT 5.51 10^6/uL (4.30-6.10); WHITE BLOOD COUNT 11.3 10^3/uL (4.0-10.0)
[2018-12-11 14:28] LABS: ALBUMIN 4.2 GM/DL (3.2-5.2); ALT/SGPT 17 U/L (12-78); BILIRUBIN,DIRECT 0.3 MG/DL (0.0-0.2); BLOOD UREA NITROGEN 14 MG/DL (7-18); CALCIUM LEVEL 8.7 MG/DL (8.8-10.2); CARBON DIOXIDE LEVEL 25 MEQ/L (21-32); CHLORIDE LEVEL 105 MEQ/L (98-107); CPK CREATINE PHOSPHOKINASE 64 U/L (39-308); CREATININE FOR GFR 1.22 MG/DL (0.70-1.30); GLOMERULAR FILTRATION RATE > 60.0 (>42); GLUCOSE, FASTING 144 MG/DL (70-100); LIPASE 109 U/L (73-393); POTASSIUM SERUM 3.8 MEQ/L (3.5-5.1); SODIUM LEVEL 141 MEQ/L (136-145); TOTAL PROTEIN 6.8 GM/DL (6.4-8.2); TROPONIN I < 0.02 NG/ML (< 0.10)
[2018-12-11] MEDS ORDERED: ISOVUE-370 76% 125ML VIAL (Q9967 PER ML) As Ordered ONE (15:41)
[2018-12-11] MEDS ORDERED: TAMSULOSIN 0.4 MG CAP PO ONE (17:15)
[2018-12-11] MEDS ORDERED: PRED5TA PO (17:50)
[2018-12-11] MEDS ORDERED: VENTAER INH (17:50)
[2018-12-11] MEDS ORDERED: ALBUTEROL 90 MCG/ACT 8GM HFA INHALER INH PRN (18:45)
[2018-12-11] MEDS: NS 1,000 ML IV SCH ×2 (19:00→20:44)
--- NOTE | 2018-12-11 19:37 | CR.PDOC ---
General Date of Consultation: Dec 11, 2018 Referring Provider: A Consultation REASON FOR CONSULTATION/CHIEF COMPLAINT: kidney stone Assessment/Plan: 1. left distal ureteral calculus, 6 mm. I reviewed the options available for management with the patient: 1. observation with increased hydration, tamsulosin, analgesics, antiemetics with hopeful spontaneous passage OR 2. Cystourethroscopy, left ureteroscopy with ex traction of the calculus 2. Longstanding lower urinary tract symptoms, has not been treated 3. History of prior evaluation of hematuria, felt to be secondary to prostatic enlargement HISTORY OF PRESENT ILLNESS: Th patient is a 73 year old male who 8 days ago developed left flank and lower abdominal pain with nausea. This subsided. The patient thought this may have represented a flareup of diverticuliitis since he has had this before. He saw his primary care physician who ordered a Ct scan which has not yet been done. His pain resolved until today when it became more severe. He presented to the Er where a Ct scan demonstrated a 6 mm left distal ureteral calculus. He has noted no gross hematuria. He has had no dysuria. He has had no fever documented although he felt like he had a fever with the initial episode of pain. Presently he is comfortable. ALLERGIES: Please see below. HOME MEDICATIONS: Please see below. PAST MEDICAL HISTORY: 1. COPD 2. Hypertension 3. Coronary artery disease 4. Diverticulitis PAST SURGICAL HISTORY: 1. hernia repair 2. angioplasty stent placement FAMILY HISTORY: Father: kidney stone SOCIAL HISTORY: Marital status and/or living arrangements: lives alone REVIEW OF SYSTEMS: negative except as mentioned above PHYSICAL EXAMINATION: VITAL SIGNS: Please see below. GENERAL APPEARANCE: Well developed thin male on stretcher in no distress HEENT:Normocephalic, EOM full, PERRLA]. RESPIRATORY: non labored breathing CARDIOVASCULAR: RRR without murmur. ABDOMEN: soft not tender, no masses EXTREMITIES: without cyanosis, clubbing , edema, deformity NEUROLOGICAL: grossly intact PSYCHIATRIC: appropriate affect, speech ,mentation, orientation LABORATORY DATA: Please see below. Farooq Stearns MD Vital Signs/I&O Vital Signs Date Time Temp Pulse Resp B/P (MAP) Pulse Ox O2 Delivery O2 Flow Rate FiO2 12/11/18 17:39 97.3 12/11/18 16:01 145/72 (96) 12/11/18 16:00 98 12/11/18 15:45 95 12/11/18 14:11 18 12/11/18 12:38 Room Air Laboratory Data Labs 24H Laboratory Tests 2 12/11/18 12:58: Immature Granulocyte % (Auto) 0.5, White Blood Count 11.3H, Red Blood Count 5.51, Hemoglobin 17.3, Hematocrit 50.5, Mean Corpuscular Volume 91.7, Mean Corpuscular Hemoglobin 31.4, Mean Corpuscular Hemoglobin Concent 34.3, Red Cell Distribution Width 13.0, Platelet Count 175, Neutrophils (%) (Auto) 88.3H, Lymphocytes (%) (Auto) 6.0L, Monocytes (%) (Auto) 4.9, Eosinophils (%) (Auto) 0.1, Basophils (%) (Auto) 0.2, Neutrophils # (Auto) 9.9H, Lymphocytes # (Auto) 0.7L, Monocytes # (Auto) 0.6, Eosinophils # (Auto) 0.0, Basophils # (Auto) 0.0, Nucleated Red Blood Cells % (auto) 0.0, Anion Gap 11, Glomerular Filtration Rate > 60.0, Blood Urea Nitrogen 14, Creatinine 1.22, Sodium Level 141, Potassium Lev el 3.8, Chloride Level 105, Carbon Dioxide Level 25, Calcium Level 8.7L, Aspartate Amino Transf (AST/SGOT) 14, Alanine Aminotransferase (ALT/SGPT) 17, Total Creatine Kinase 64, Alkaline Phosphatase 105, Total Bilirubin 1.0, Direct Bilirubin 0.3H, Total Protein 6.8, Albumin 4.2, Creatine Kinase MB 2.0, Creatine Kinase MB Relative Index 2.50, Troponin I < 0.02, Albumin/Globulin Ratio 1.62, Lipase 109 12/11/18 17:00: Urine Color YELLOW, Urine Appearance CLEAR, Urine pH 5.0, Urine Specific [place] 1.060, Urine Protein NEGATIVE, Urine Glucose (UA) NEGATIVE, Urine Ketones TRACEH , Urine Blood 2+H, Urine Nitrite NEGATIVE, Urine Bilirubin NEGATIVE, Urine Urobilinogen 0.2, Urine Leukocyte Esterase NEGATIVE, Urine WBC (Auto) 3, Urine RBC (Auto) 51H, Urine Hyaline Casts (Auto) 0, Urine Bacteria (Auto) NEGATIVE, Urine Squamous Epithelial Cells 0, Urine Mucus (Auto) SMALL, Urine Sperm (Auto) CBC/BMP Laboratory Tests 12/11/18 12:58 Red Blood Count 5.51, Mean Corpuscular Volume 91.7, Mean Corpuscular Hemoglobin 31.4, Mean Corpuscular Hemoglobin Concent 34.3, Red Cell Distribution Width 13.0, Neutrophils (%) (Auto) 88.3 H, Lymphocytes (%) (Auto) 6.0 L, Monocytes (%) (Auto) 4.9, Eosinophils (%) (Auto) 0.1, Basophils (%) (Auto) 0.2, Neutrophils # (Auto) 9.9 H, Lymphocytes # (Auto) 0.7 L, Monocytes # (Auto) 0.6, Eosinophils # (Auto) 0.0, Basophils # (Auto) 0.0, Calcium Level 8.7 L, Aspartate Amino Transf (AST/SGOT) 14, Alanine Aminotransferase (ALT/SGPT) 17, Total Creatine Kinase 64, Alkaline Phosphatase 105, Total Bilirubin 1.0, Direct Bilirubin 0.3 H, Total Protein 6.8, Albumin 4.2 Allergies Coded Allergies: No Known Drug Allergy (Verified Allergy, Unknown, 03/02/18) Home Medications Scheduled Aspirin (Aspirin) 325 Mg Tab, 325 MG PO QHS, (Reported) Docusate Sodium (Stool Softener) 100 Mg Cap, 200 MG PO BID, (Reported) Fluticasone/Vilanterol (Breo Ellipta 200-25 Mcg/INH) 1 Inh Inh, 1 PUFF INH VANESA LY, (Reported) Prednisone (Prednisone) 5 Mg Tab, 5 MG PO Q2D, (Reported) Ramipril (Ramipril) 2.5 Mg Cap, 2.5 MG PO QHS, (Reported) Simvastatin - High Dose (Simvastatin) 40 Mg Tab, 40 MG PO QHS, (Reported) Scheduled PRN Albuterol Sulfate (Ventolin Hfa) 108 Mcg/Act Aer, 2 PUFF INH QID PRN for SHORTNESS OF BREATH, (Reported) SHELDON STEARNS MD Dec 11, 2018 19:37
--- NOTE | 2018-12-11 19:59 | HPE ---
DATE OF ADMISSION: 12/11/2018 A 73-year-old male with a past medical history of hypertension, hyperlipidemia, [id number] chronic obstructive pulmonary disease (COPD), coronary artery disease status post myocardial infarction (MA), history of stent placement in 2005, presents to the emergency room with sudden onset of the left flank pain radiating to his groin, associated nausea and vomiting. In the emergency room (ER) he had a CT scan that showed a 6 mm stone at the left ureterovesical (UV) junction with mild to moderate hydronephrosis. Dr. Jc was informed, who is the urology, and recommended admission. He will see the patient in the morning. Patient did receive morphine and Zofran, and he is comfortable at this time and offers no complaints. He will be admitted for further management. PAST MEDICAL HISTORY: 1. Hypertension. 2. Hyperlipidemia. 3. Ctc-mupwbf-fzmchdxyq COPD. 4. Coronary artery disease, status post MA. 5. History of stent placement in 2005. 6. Gastroesophageal reflux disease (GERD). 7. History of left hernia repair and right hernia repair. ALLERGIES: He has no known drug allergies. FAMILY HISTORY: Positive for renal stones in his father. SOCIAL HISTORY: Patient used to be a heavy smoker. Quit approximately 10 years ago. Denies alcohol or illicit drugs. HOME MEDICATIONS: - albuterol as needed - aspirin 352 mg orally at bedtime - Colace 200 mg orally twice daily - fluticasone/vilanterol one puff inhaled daily - prednisone 5 mg orally every 2 days - ramipril 2.5 mg orally at bedtime - simvastatin 40 mg orally at bedtime REVIEW OF SYSTEMS: Negative for [id number] systems except what is mentioned in the history of present illness (HPI). VITAL SIGNS: Blood pressure is 145/72, heart rate is 98, regular, respiratory rate is 18, temperature is 97.3, oxygen saturation is 95% on room air. HEAD: Atraumatic, normocephalic. NECK: Supple. No jugular venous distention (JVD). LUNGS: Clear to auscultation. HEART: S1, S2 audible. No murmurs appreciated. ABDOMEN: Soft. Positive bowel sounds. No pedal edema. SKIN: Intact. NEUROLOGIC: Patient awake, alert, oriented times three. LABORATORY DATA: WBC 11.3, hemoglobin 17.3, hematocrit 50.5, platelets are 175,000. Sodium 141, potassium 3.8, chloride 105, CO2 is 25, BUN is 14, creatinine 1.22. Urinalysis is negative for urinary tract infection (UTI). IMPRESSION: 1. Left renal calculus. 2. Left hydronephrosis. PLAN: Patient will be admitted to the medical/surgical floor. We are going to continue patient on intravenous (IV) Zofran and morphine for symptomatic relief. We will give him normal saline at 100 mL an hour, and hopefully he will be able to strain a stone out. Dr. Jc will be on consult and will be looking forward to his recommendations. I will continue all his other preadmission medications and continue his care on the medical/surgical floor.
[2018-12-11 20:45] VITALS: BP 130/69
[2018-12-11] MEDS: TAMSULOSIN 0.4 MG CAP PO SCH (21:00)
[2018-12-11] MEDS: DOCUSATE SODIUM 100 MG CAP PO SCH (21:04)
[2018-12-11] MEDS: SIMVASTATIN 40 MG TAB PO SCH (21:04)
[2018-12-11] MEDS: ASPIRIN ENTERIC 325 MG TAB PO SCH (21:04)
[2018-12-11] MEDS: RAMIPRIL 1.25 MG CAP PO SCH (21:47)
[2018-12-12] MEDS: NS 1,000 ML IV SCH ×3 (02:51→21:19)
[2018-12-12 06:00] VITALS: BP 101/56
[2018-12-12 06:58] LABS: BASO % 0.3 % (0.0-1.0); EOS # 0.1 10^3/uL (0.0-0.50); EOS % 0.8 % (0.0-3.0); HEMATOCRIT 45.6 % (42.0-52.0); LYMPH # 1.1 10^3/uL (1.5-4.5); LYMPH % 17.3 % (24.0-44.0); MEAN CORPUSCULAR HGB CONC 32.7 g/dl (32.0-36.5); MEAN CORPUSCULAR VOLUME 94.8 fl (80.0-96.0); MONO # 0.7 10^3/uL (0.0-0.8); MONO % 10.8 % (0.0-5.0); NEUTROPHILS # 4.7 10^3/uL (1.8-7.7); NEUTROPHILS % 70.5 % (36.0-66.0); PLATELET COUNT, AUTOMATED 136 10^3/uL (150-450); RED BLOOD COUNT 4.81 10^6/uL (4.30-6.10); WHITE BLOOD COUNT 6.6 10^3/uL (4.0-10.0)
[2018-12-12 07:03] LABS: HEMOGLOBIN 14.9 g/dl (13.5-17.5)
[2018-12-12 07:25] LABS: BLOOD UREA NITROGEN 11 MG/DL (7-18); CALCIUM LEVEL 7.7 MG/DL (8.8-10.2); CARBON DIOXIDE LEVEL 27 MEQ/L (21-32); CHLORIDE LEVEL 110 MEQ/L (98-107); CREATININE FOR GFR 0.95 MG/DL (0.70-1.30); GLOMERULAR FILTRATION RATE > 60.0 (>42); GLUCOSE, FASTING 95 MG/DL (70-100); POTASSIUM SERUM 3.7 MEQ/L (3.5-5.1); SODIUM LEVEL 143 MEQ/L (136-145)
[2018-12-12] MEDS: predniSONE 5 MG TAB PO SCH (07:38)
[2018-12-12] MEDS: DOCUSATE SODIUM 100 MG CAP PO SCH ×2 (07:39→21:18)
[2018-12-12] MEDS: MORPHINE 4 MG/ML 1ML VIAL/SYRINGE (J2270) IV PRN ×2 (07:40→12:15)
[2018-12-12] MEDS: ONDANSETRON 4MG/2ML VIAL (J2405) IV PRN (07:40)
--- NOTE | 2018-12-12 07:50 | REP ---
CT ABDOMEN AND PELVIS WITH CONTRAST: HISTORY: Abdominal pain. CONTRAST: Isovue 370, 75 mL. COMPARISON: 08/06/2018 Several small hypodensities 4-5 mm in size are present in the liver. These most likely represent cysts. Calcifications are present in the spleen. The gallbladder, pancreas, adrenal glands and right kidney are normal in appearance. There is moderate left hydronephrosis. This is secondary to a 6 mm calculus present at the left ureterovesical junction. There is no mass or adenopathy or free fluid. There are several dilated loops of small intestine that may represent ileus or possibly early small bowel obstruction. The visualized lungs are clear. Calcifications are present in the prostate gland. A 6 mm calculus is present at the left ureterovesical junction. There is moderate dilatation of the left ureter. Diverticula are present in the descending and sigmoid colon. Surgical clips are present in the inguinal regions. Degenerative change is present in the spine. IMPRESSION: 1. There are several small hypodensities 4-5 mm in size in the liver most likely representing cysts. 2. Moderate left hydronephrosis secondary to a 6 mm calculus present at the left ureterovesical junction. 3. Diverticulosis. 4. The patient is status post bilateral inguinal herniorrhaphy. Surgical clips are present. 5. There are several dilated loops of small intestine that may represent ileus versus early small bowel obstruction. Electronically Signed by Hernandez Yañez MD 12/12/2018 08:08 A
[2018-12-12] MEDS: BREO ELLIPTA INH SCH ×2 (09:00→18:10)
--- NOTE | 2018-12-12 10:55 | MHIPNPDOC ---
[facility] Progress Note Progress Note DATE OF SERVICE: 12/12/18 HISTORY: The patient is comfortable presently this am. He has had pain with nausea intermittently since admission. He has not passed a stone. I explained all the options available for management includin. Observation with hopeful spontaneous passage while in hospital 2. Discharge to try to pass calculus at home with oral analgesics, antiemetics. 3. Proceed with cystoscopy, ureteroscopy and extraction of calculus from left ureter in OR under anesthesia. He wishes to give 24 hours in hospital to try to pass it. Will re evaluate him in the am. VITAL SIGNS: See below. NEW TEST RESULTS: none CURRENT MEDICATIONS: See below. MENTAL STATUS EXAMINATION: Patient is a 73-year old male, who is . Speech: Is fluent Language skills are good. Thought processes including: intact. DIAGNOSES: 1. left ureteral calculus, 6 mm, intermittently symptomatic ASSESSMENT: left ureteral calculus MANAGEMENT PLAN: I discussed the options available for management as described above. He wishes to give this 24 hours in the hospital to try to pass it. Will re evaluate in the am. I discussed this with Dr. Parkinson over the phone. TIME SPENT: 15 minutes. Vital Signs Vital Signs Date Time Temp Pulse Resp B/P (MAP) Pulse Ox O2 Delivery O2 Flow Rate FiO2 12/12/18 07:50 16 12/12/18 06:00 97.7 71 101/56 (71) 96 12/11/18 20:24 Room Air Laboratory Data 24H Labs Laboratory Tests 2 12/11/18 12:58: Immature Granulocyte % (Auto) 0.5, White Blood Count 11.3H, Red Blood Count 5.51, Hemoglobin 17.3, Hematocrit 50.5, Mean Corpuscular Volume 91.7, Mean Corpuscular Hemoglobin 31.4, Mean Corpuscular Hemoglobin Concent 34.3, Red Cell Distribution Width 13.0, Platelet Count 175, Neutrophils (%) (Auto) 88.3H, Lymphocytes (%) (Auto) 6.0L, Monocytes (%) (Auto) 4.9, Eosinophils (%) (Auto) 0.1, Basophils (%) (Auto) 0.2, Neutrophils # (Auto) 9.9H, Lymphocytes # (Auto) 0.7L, Monocytes # (Auto) 0.6, Eosinophils # (Auto) 0.0, Basophils # (Auto) 0.0, Nucleated Red Blood Cells % (auto) 0.0, Anion Gap 11, Glomerular Filtration Rate > 60.0, Blood Urea Nitrogen 14, Creatinine 1.22, Sodium Level 141, Potassium Level 3.8, Chloride Level 105, Carbon Dioxide Level 25, Calcium Level 8.7L, Aspartate Amino Transf (AST/SGOT) 14, Alanine Aminotransferase (ALT/SGPT) 17, Total Creatine Kinase 64, Alkaline Phosphatase 105, Total Bilirubin 1.0, Direct Bilirubin 0.3H, Total Protein 6.8, Albumin 4.2, Creatine Kinase MB 2.0, Creatine Kinase MB Relative Index 2.50, Troponin I < 0.02, Albumin/Globulin Ratio 1.62, Lipase 109 12/11/18 17:00: Urine Color YELLOW, Urine Appearance CLEAR, Urine pH 5.0, Urine Specific [place] 1.060, Urine Protein NEGATIVE, Urine Glucose (UA) NEGATIVE, Urine Ketones TRACEH, Urine Blood 2+H, Urine Nitrite NEGATIVE, Urine Bilirubin NEGATIVE, Urine Urobilinogen 0.2, Urine Leukocyte Esterase NEGATIVE, Urine WBC (Auto) 3, Urine RBC (Auto) 51H, Urine Hyaline Casts (Auto) 0, Urine Bacteria (Auto) NEGATIVE, Urine Squamous Epithelial Cells 0, Urine Mucus (Auto) SMALL, Urine Sperm (Auto) 12/12/18 06:29: Immature Granulocyte % (Auto) 0.3, White Blood Count 6.6, Red Blood Count 4.81, Hemoglobin 14.9#, Hematocrit 45.6, Mean Corpuscular Volume 94.8, Mean Corpuscular Hemoglobin 31.0, Mean Corpuscular Hemoglobin Concent 32.7, Red Cell Distribution Width 13.4, Platelet Count 136L, Neutrophils (%) (Auto) 70.5H, Lymphocytes (%) (Auto) 17.3L, Monocytes (%) (Auto) 10.8H, Eosinophils (%) (Auto) 0.8, Basophils (%) (Auto) 0.3, Neutrophils # (Auto) 4.7, Lymphocytes # (Auto) 1.1L, Monocytes # (Auto) 0.7, Eosinophils # (Auto) 0.1, Basophils # (Auto) 0.0, Nucleated Red Blood Cells % (auto) 0.0, Anion Gap 6L, Glomerular Filtration Rate > 60.0, Blood Urea Nitrogen 11, Creatinine 0.95, Sodium Level 143, Potassium Level 3.7, Chloride Level 110H, Carbon Dioxide Level 27, Calcium Level 7.7L CBC/BMP Laboratory Tests 12/11/18 12:58 Red Blood Count 5.51, Mean Corpuscular Volume 91.7, Mean Corpuscular Hemoglobin 31.4, Mean Corpuscular Hemoglobin Concent 34.3, Red Cell Distribution Width 13.0, Neutrophils (%) (Auto) 88.3 H, Lymphocytes (%) (Auto) 6.0 L, Monocytes (%) (Auto) 4.9, Eosinophils (%) (Auto) 0.1, Basophils (%) (Auto) 0.2, Neutrophils # (Auto) 9.9 H, Lymphocytes # (Auto) 0.7 L, Monocytes # (Auto) 0.6, Eosinophils # (Auto) 0.0, Basophils # (Auto) 0.0, Calcium Level 8.7 L, Aspartate Amino Transf (AST/SGOT) 14, Alanine Aminotransferase (ALT/SGPT) 17, Total Creatine Kinase 64, Alkaline Phosphatase 105, Total Bilirubin 1.0, Direct Bilirubin 0.3 H, Total Protein 6.8, Albumin 4.2 12/12/18 06:29 Red Blood Count 4.81, Mean Corpuscular Volume 94.8, Mean Corpuscular Hemoglobin 31.0, Mean Corpuscular Hemoglobin Concent 32.7, Red Cell Distribution Width 13.4, Neutrophils (%) (Auto) 70.5 H, Lymphocytes (%) (Auto) 17.3 L, Monocytes (%) (Auto) 10.8 H, Eosinophils (%) (Auto) 0.8, Basophils (%) (Auto) 0.3, Neutrophils # (Auto) 4.7, Lymphocytes # (Auto) 1.1 L, Monocytes # (Auto) 0.7, Eosinophils # (Auto) 0.1, Basophils # (Auto) 0.0, Calcium Level 7.7 L Current Medications Current Medications Albuterol Sulfate (Proventil, Ventolin Hfa) 2 puff QID PRN INH SHORTNESS OF BREATH; Start 12/11/18 at 18:45 Aspirin (Ecotrin) 325 mg QHS PO Last administered on 12/11/18at 21:04; Start 12/11/18 at 21:00 Diatrizoate Meglum/ Diatrizoate Sod (Gastrografin) 10 ml Q30M PO Last administered on 12/11/18at 14:45; Start 12/11/18 at 13:15; Stop 12/11/18 at 13:46; Status DC Docusate Sodium (Colace) 200 mg BID PO Last administered on 12/12/18at 07:39; S tart 12/11/18 at 21:00 Home Med (Med Rec Complete!) ASDIRECTED XX ; Start 12/11/18 at 18:00; Stop at 18:00; Status DC Miscellaneous (Unresolved Patient Own Med Order) SEE LABEL COMMENTS DAILY XX ; Start 12/12/18 at 09:00; Stop 12/12/18 at 10:40; Status DC Morphine Sulfate (Morphine Sulfate Inj) 2 mg Q2HP PRN IV SEVERE PAIN (PS 8-10) Last administered on 12/12/18at 07:40; Start 12/11/18 at 18:45 Ondansetron HCl (ZOFRAN INJection) 4 mg Q6HP PRN IV NAUSEA OR VOMITING Last administered on 12/12/18at 07:40; Start 12/11/18 at 18:45 Patient Own Medication (Patient'S Own Med) 1 puff daily DAILY INH ; Start 12/12/18 at 09:00 Prednisone (Deltasone) 5 mg Q2D PO Last administered on 12/12/18at 07:38; Start 12/12/18 at 09:00 Ramipril (Altace) 2.5 mg QHS PO Last administered on 12/11/18at 21:47; Start 12/11/18 at 21:00 Simvastatin (Zocor) 40 mg QHS PO Last administered on 12/11/18at 21:04; Start 12/11/18 at 21:00 Sodium Chloride 1,000 ml @ 100 mls/hr Q10H IV Last administered on 12/11/18at 13:10; Start 12/11/18 at 12:42; Stop 12/11/18 at 18:50; Status DC Sodium Chloride 1,000 ml @ 125 mls/hr Q8H IV Last administered on 12/12/18at 02:51; Start 12/11/18 at 19:00 Tamsulosin HCl (Flomax) 0.4 mg DAILY@2100 PO ; Start 12/11/18 at 21:00 Allergies Coded Allergies: No Known Drug Allergy (Verified Allergy, Unknown, 03/02/18) SHELDON STEARNS MD Dec 12, 2018 10:55
[2018-12-12 14:00] VITALS: BP 125/67
--- NOTE | 2018-12-12 16:21 | IPNPDOC ---
Text Note Date of Service The patient was seen on 12/12/18. NOTE Subjective: Patient is a 73 year old male with a PMHx of COPD not on O2, CAD (Hx of [place]) s/p stent (2015), HTN, DLP, and GERD who presented to the ER with suddon onset of left flank pain radiating to groin. Patient had associated N/V. In the ER, patient had CT imaging that was consistent with a 6 mm stone at the left UV junction. Urology has been consulted. Patient has been admitted to the hospitalist service for further evaluation and treatment. Patient was seen and examined at the bedside. Court. Patient notes that he feels a little nauseated. Denies any vomiting. Denies chest pain, shortness of breath or palpitations. Reports left fine pain radiating down to his left groin. He denies any constipation, diarrhea, or burning with urination. Objective: Vitals (See below) General: Lying in bed, no acute distress, comfortable, AAOx3 HEENT: NC, AT CVS: RRR, +S1S2 Lungs: Fair air entry b/l, auscultations without any wheezing, rales or rhonchi Abdomen: Soft, nondistended, without tenderness Extremities: - Edema, - Calf tenderness Assessment and plan: Left flank pain radiating to left groin - likely 2/2 nephrolithiasis with stone at L UV Junction and hydronephrosis - Patient presented to the emergency room with complaints of left flank pain radiated to groin associated with nausea and vomiting - This morning patient has noted some nausea and pain - Leukocytosis has resolved; renal function appears normal, no electrolyte abnormalities - Repeat UAs without any sources of infection - Continue with IV fluid hydration and tamsulosin - Urology on consultation; case discussed with Dr. Jc; will plan for another 24 hours with conservative therapy and potential intervention thereafter COPD not on O2 - No evidence of exacerbation - Patient takes prednisone at baseline - Continue with inhaled therapy as ordered CAD (Hx of [place]) s/p stent (2015) - c/w ASA 325 HTN - BP well controlled - c/w Ramipirl DLP - c/w Simvastatin GERD - Currently not on any medications DVT prophylaxis - c/w TEDs and Sequentials VS,Fishbone, I+O VS, Fishbone, I+O Laboratory Tests 12/12/18 06:29 Red Blood Count 4.81, Mean Corpuscular Volume 94.8, Mean Corpuscular Hemoglobin 31.0, Mean Corpuscular Hemoglobin Concent 32.7, Red Cell Distribution Width 13. 4, Neutrophils (%) (Auto) 70.5 H, Lymphocytes (%) (Auto) 17.3 L, Monocytes (%) (Auto) 10.8 H, Eosinophils (%) (Auto) 0.8, Basophils (%) (Auto) 0.3, Neutrophils # (Auto) 4.7, Lymphocytes # (Auto) 1.1 L, Monocytes # (Auto) 0.7, Eosinophils # (Auto) 0.1, Basophils # (Auto) 0.0, Calcium Level 7.7 L Vital Signs Date Time Temp Pulse Resp B/P (MAP) Pulse Ox O2 Delivery O2 Flow Rate FiO2 12/12/18 14:00 97.9 68 21 125/67 (86) 97 12/11/18 20:24 Room Air I&O- Last 24 Hours up to 6 AM 12/12/18 06:00 Intake Total 1860 ml Output Total 450 ml Balance 1410 ml TIFFANIE CARMONA MD Dec 12, 2018 16:21
--- NOTE | 2018-12-12 18:39 | ECGEPIP ---
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
[2018-12-12] MEDS: SIMVASTATIN 40 MG TAB PO SCH (21:18)
[2018-12-12] MEDS: TAMSULOSIN 0.4 MG CAP PO SCH (21:18)
[2018-12-12] MEDS: ASPIRIN ENTERIC 325 MG TAB PO SCH (21:18)
[2018-12-12] MEDS: RAMIPRIL 1.25 MG CAP PO SCH (21:18)
[2018-12-12 22:00] VITALS: BP 119/62
[2018-12-13] VITALS (8 sets, daily range): BP systolic 110–133; BP diastolic 57–87
[2018-12-13] MEDS: NS 1,000 ML IV SCH (02:37)
[2018-12-13] MEDS: MORPHINE 4 MG/ML 1ML VIAL/SYRINGE (J2270) IV PRN ×3 (03:47→08:47)
[2018-12-13] MEDS: ONDANSETRON 4MG/2ML VIAL (J2405) IV PRN (03:51)
--- NOTE | 2018-12-13 07:32 | IPNPDOC ---
Date Seen The patient was seen on 12/13/18. Progress Note SUBJECTIVE: The patient has continued to have pain with nausea and vomiting. I reviewed again with him the options available for management. He requests that we proceed with cystoscopy, left ureteroscopy and extraction of the calculus from the left ureter. I explained the procedure along with the benefits,risks, alternatives and possible adverse effects. I explained that it may be necessary to leave a temporary internal ureteral catheter in place post procedure for one week. I also explained that in view of his existing lower urinary tract symptoms that he is at risk for possible inability to void post op. Informed consent obtained. OBJECTIVE PHYSICAL EXAMINATION: VITAL SIGNS: Please see below. GENERAL: Well developed thin male sitting on the side of the bed appears uncomfortable LABORATORY DATA, IMAGING STUDIES, MICROBIOLOGY: Please see below. ASSESSMENT: 73 year old male with persistent pain nausea and vomiting due to 6 mm left distal ureteral calculus. Will proceed with extraction in OR today PROBLEMS: 1. left distal ureteral calculus DISPOSITION: for OR today, NPO till then VS, I&O, 24H, Fishbone Vital Signs/I&O Vital Signs Date Time Temp Pulse Resp B/P (MAP) Pulse Ox O2 Delivery O2 Flow Rate FiO2 12/13/18 06:38 16 12/13/18 06:00 98.6 70 131/72 (91) 97 12/11/18 20:24 Room Air I&O- Last 24 Hours up to 6 AM 12/13/18 06:00 Intake Total 4190 ml Output Total 1610 ml Balance 2580 ml Laboratory Data 24H LABS Laboratory Tests 2 12/12/18 10:51: Urine Color YELLOW, Urine Appearance CLEAR, Urine pH 5.0, Urine Specific [place] 1.020, Urine Protein NEGATIVE, Urine Glucose (UA) NEGATIVE, Urine Ketones NEGA TIVE, Urine Blood 2+H, Urine Nitrite NEGATIVE, Urine Bilirubin NEGATIVE, Urine Urobilinogen 0.2, Urine Leukocyte Esterase NEGATIVE, Urine WBC (Auto) 1, Urine RBC (Auto) 26H, Urine Hyaline Casts (Auto) 0, Urine Bacteria (Auto) NEGATIVE, Urine Squamous Epithelial Cells 0, Urine Mucus (Auto) SMALL, Urine Sperm (Auto) Microbiology Microbiology 12/12/18 Urine Culture - Final, Complete SHELDON STEARNS MD Dec 13, 2018 07:32
[2018-12-13] MEDS ORDERED: CONRAY-60 60% 50ML VIAL (Q9961) As Ordered ONE (08:36)
[2018-12-13] MEDS: DOCUSATE SODIUM 100 MG CAP PO SCH ×2 (08:38→21:39)
[2018-12-13 08:47] LABS: BASO % 0.3 % (0.0-1.0); EOS % 0.1 % (0.0-3.0); HEMATOCRIT 45.6 % (42.0-52.0); HEMOGLOBIN 14.8 g/dl (13.5-17.5); LYMPH # 0.7 10^3/uL (1.5-4.5); LYMPH % 7.1 % (24.0-44.0); MEAN CORPUSCULAR HEMOGLOBIN 31.2 pg (27.0-33.0); MEAN CORPUSCULAR HGB CONC 32.5 g/dl (32.0-36.5); MONO # 0.6 10^3/uL (0.0-0.8); MONO % 6.3 % (0.0-5.0); NEUTROPHILS # 8.1 10^3/uL (1.8-7.7); NEUTROPHILS % 85.8 % (36.0-66.0); PLATELET COUNT, AUTOMATED 131 10^3/uL (150-450); RED BLOOD COUNT 4.75 10^6/uL (4.30-6.10); WHITE BLOOD COUNT 9.4 10^3/uL (4.0-10.0)
[2018-12-13] MEDS: BREO ELLIPTA INH SCH (08:53)
[2018-12-13 09:03] LABS: BLOOD UREA NITROGEN 12 MG/DL (7-18); CALCIUM LEVEL 7.8 MG/DL (8.8-10.2); CARBON DIOXIDE LEVEL 26 MEQ/L (21-32); CHLORIDE LEVEL 112 MEQ/L (98-107); CREATININE FOR GFR 1.05 MG/DL (0.70-1.30); GLOMERULAR FILTRATION RATE > 60.0 (>42); GLUCOSE, FASTING 118 MG/DL (70-100); MAGNESIUM LEVEL 2.3 MG/DL (1.8-2.4); POTASSIUM SERUM 3.7 MEQ/L (3.5-5.1); SODIUM LEVEL 143 MEQ/L (136-145)
[2018-12-13] MEDS ORDERED: ONDANSETRON 4MG/2ML VIAL (J2405) As Ordered ONE (10:10)
[2018-12-13] MEDS ORDERED: PROPOFOL 200 MG/20 ML VIAL As Ordered ONE (10:10)
[2018-12-13] MEDS ORDERED: dexameTHASONE 4 MG/ML 1ML VIAL (J1100) As Ordered ONE (10:10)
[2018-12-13] MEDS ORDERED: METOCLOPRAMIDE INJ 10MG/2ML VIAL (J2765) As Ordered ONE (10:10)
[2018-12-13] MEDS ORDERED: ROCURONIUM BROMIDE 50 MG/5 ML VIAL As Ordered ONE (10:10)
[2018-12-13] MEDS ORDERED: MIDAZOLAM INJ 2 MG/2 ML VIAL (J2250) As Ordered ONE (10:10)
[2018-12-13] MEDS ORDERED: fentaNYL 100 MCG/2 ML INJECTION (J3010) As Ordered ONE (10:10)
[2018-12-13] MEDS ORDERED: SUGAMMADEX SODIUM 500 MG/5 ML VIAL (BRIDION) As Ordered ONE (10:54)
[2018-12-13] MEDS ORDERED: fentaNYL 100 MCG/2 ML INJECTION (J3010) IV PRN (11:45)
[2018-12-13] MEDS ORDERED: ONDANSETRON 4MG/2ML VIAL (J2405) IV PRN (11:45)
[2018-12-13] MEDS ORDERED: LR 1,000 ML IV SCH (11:45)
[2018-12-13] MEDS ORDERED: NORCO, ANEXSIA 5/325MG TABLET (HYDROcodone/ACETAMINOPHEN) PO PRN (11:45)
--- NOTE | 2018-12-13 14:33 | RO ---
DATE OF PROCEDURE: 12/13/2018 PREOPERATIVE DIAGNOSIS: Left distal ureteral calculus. POSTOPERATIVE DIAGNOSIS: Left distal ureteral calculus. PROCEDURE: Cystourethroscopy, extraction of left distal ureteral calculus, left retrograde pyelography. SURGEON: Dr. Brett Jc BLOCK AND CASE MAKER: ANESTHESIA: General oral endotracheal. COMPLICATIONS: None. DRAINS: None. SPECIMENS: Kidney stone submitted for kidney stone analysis. ESTIMATED BLOOD LOSS: None. BLOOD REPLACED: None. HISTORY: Patient is a 73-year-old male, who presented with severe left flank pain with no nausea and vomiting and found to have a 6 mm calculus in the left distal ureter on CT imaging. The options available for management were discussed with the patient and because of persistent pain with nausea and vomiting he elected to proceed with extraction. The procedure was carefully explained to the patient along with the benefits, risks, alternatives, possible adverse effects. Informed consent was obtained. DESCRIPTION OF PROCEDURE: After successful anesthetization with satisfactory level of general anesthesia via oral endotracheal tube, the patient was placed in the dorsal lithotomy position on the cystoscopy table using Rasta stirrups. The patient's genitalia were prepped and draped in sterile manner using Betadine. #22 Hebrew Olympus cystoscope sheath with a 30 degree lens was inserted in the urethra and easily passed in the bladder. The anterior urethra was normal. The prostatic urethra was obstructing with a large median lobe protruding the base of the bladder. The left ureteral orifice was identified with a calculus protruding from this. Using the biopsy forceps, the calculus was gently extracted from the ureteral orifice. This was retrieved and submitted for analysis. A left retrograde pyelogram was then performed, which demonstrated no residual filling defects in the ureter. The ureter was dilated proximal to the distal segment, however, on delayed imaging prompt emptying of the collecting system was noted. The bladder was then evacuated. The cystoscope was withdrawn. The patient was awakened and transported to the recovery room in satisfactory condition after tolerating the procedure well.
--- NOTE | 2018-12-13 15:29 | IPNPDOC ---
Subjective Date Seen Corrected Note, created on 12-13-18. The patient was seen on 12/12/18. Assessment: 1. 6 mm left distal ureteral calculus, intermittently symptomatic with nausea, vomiting and pain. Plan: I discussed with the patient the options available for management includin. Observation as an inpatient with hopeful spontaneous passage of the calculus, 2. Observation with hopeful spontaneous passage of the calculus as an outpatient, OR 3. Proceeding with ureteroscopy and extraction of the calculus in the operating room under anesthesia. I explained the procedure to the patient AT this time the patient wishes to give this 24 hours to try to pass, if not then he would like to go ahead with extraction. I will check on him early in the morning. Discussion: He has continued to experience intermittent severe left flank and left lower quadrant abdominal pain along with nausea and vomiting. He has had some fever. His urinalysis is not suspicious for urinary tract infection. Exam: thin elderly male in bed in no distress. Farooq Stearns MD Subjective Chief Complaint/HPI left ureteral calculus Assessment /Plan Plan/VTE VTE Prophylaxis Ordered?: Yes VS, I&O, 24H, Fishbone Vital Signs/I&O Vital Signs Date Time Temp Pulse Resp B/P (MAP) Pulse Ox O2 Delivery O2 Flow Rate FiO2 12/13/18 13:30 99.7 78 19 112/65 (81) 96 12/13/18 11:10 2 12/11/18 20:24 Room Air I&O- Last 24 Hours up to 6 AM 12/13/18 05:59 Intake Total 4190 ml Output Total 1610 ml Balance 2580 ml Laboratory Data 24H LABS Laboratory Tests 2 12/13/18 08:02: Immature Granulocyte % (Auto) 0.4, White Blood Count 9.4, Red Blood Count 4.75, Hemoglobin 14.8, Hematocrit 45.6, Mean Corpuscular Volume 96.0, Mean Corpuscular Hemoglobin 31.2, Mean Corpuscular Hemoglobin Concent 32.5, Red Cell Distribution Width 13.3, Platelet Count 131L, Neutrophils (%) (Auto) 85.8H, Lymphocytes (%) (Auto) 7.1L, Monocytes (%) (Auto) 6.3H, Eosinophils (%) (Auto) 0.1, Basophils (%) (Auto) 0.3, Neutrophils # (Auto) 8.1H, Lymphocytes # (Auto) 0.7L, Monocytes # (Auto) 0.6, Eosinophils # (Auto) 0.0, Basophils # (Auto) 0.0, Nucleated Red Blood Cells % (auto) 0.0, Anion Gap 5L, Glomerular Filtration Rate > 60.0, Blood Urea Nitrogen 12, Creatinine 1.05, Sodium Level 143, Potassium Level 3.7, Chloride Level 112H, Carbon Dioxide Level 26, Calcium Level 7.8L, Magnesium Level 2.3 CBC/BMP Laboratory Tests 12/13/18 08:02 Red Blood Count 4.75, Mean Corpuscular Volume 96.0, Mean Corpuscular Hemoglobin 31.2, Mean Corpuscular Hemoglobin Concent 32.5, Red Cell Distribution Width 13.3, Neutrophils (%) (Auto) 85.8 H, Lymphocytes (%) (Auto) 7.1 L, Monocytes (%) (Auto) 6.3 H, Eosinophils (%) (Auto) 0.1, Basophils (%) (Auto) 0.3, Neutrophils # (Auto) 8.1 H, Lymphocytes # (Auto) 0.7 L, Monocytes # (Auto) 0.6, Eosinophils # (Auto) 0.0, Basophils # (Auto) 0.0, Calcium Level 7.8 L Microbiology Microbiology 12/12/18 Urine Culture - Final, Complete SHELDON STEARNS MD Dec 13, 2018 15:29
--- NOTE | 2018-12-13 15:56 | IPNPDOC ---
Text Note Date of Service The patient was seen on 12/13/18. NOTE Subjective: Patient is a 73 year old male with a PMHx of COPD not on O2, CAD (Hx of [place]) s/p stent (2015), HTN, DLP, and GERD who presented to the ER with suddon onset of left flank pain radiating to groin. Patient had associated N/V. In the ER, patient had CT imaging that was consistent with a 6 mm stone at the left UV junction. Urology has been consulted. Patient has been admitted to the hospitalist service for further evaluation and treatment. Patient was seen and examined at the bedside. Patient is seen postoperatively. He currently denies any pain. Denies nausea, vomiting, constipation, diarrhea. Patient is noting urinary discomforts and has been passing blood with clots. Currently still able to urinate without any difficulty. Denies chest pain, shortness of breath or palpitations. Objective: Vitals (See below) General: Lying in bed, no acute distress, comfortable, AAOx3 HEENT: NC, AT CVS: RRR, +S1S2 Lungs: Fair air entry b/l, no evidence of rales, rhonchi or wheezing upon auscultation Abdomen: Remain soft without distention or tenderness Extremities: No evidence of lower extremity edema, - Calf tenderness Assessment and plan: Left flank pain radiating to left groin - likely 2/2 nephrolithiasis with stone at L UV Junction and hydronephrosis - Patient presented to the emergency room with complaints of left flank pain radiated to groin associated with nausea and vomiting - Clinically has resolution of pain; experiencing hematuria with clot passage; but is able to urinate - Leukocytosis has resolved; renal function appears normal, no electrolyte abnormalities - Repeat UAs without any sources of infection - c/w IV Fluid Hydration and tamsulosin - s/p Cystoscopy 12/13/18; with removal of stone - Urology (Dr. Jc) on consultation COPD not on O2 - No evidence of exacerbation - Patient takes prednisone at baseline - Continue with inhaled therapy as ordered CAD (Hx of [place]) s/p stent (2015) - c/w ASA 325 HTN - BP well controlled - c/w Ramipril DLP - c/w Simvastatin GERD - Currently not on any medications DVT prophylaxis - c/w TEDs and Sequentials Disposition: - Anticipate discharge within 24 hours VS,Betty, I+O VS, Fishbone, I+O Laboratory Tests 12/13/18 08:02 Red Blood Count 4.75, Mean Corpuscular Volume 96.0, Mean Corpuscular Hemoglobin 31.2, Mean Corpuscular Hemoglobin Concent 32.5, Red Cell Distribution Width 13.3, Neutrophils (%) (Auto) 85.8 H, Lymphocytes (%) (Auto) 7.1 L, Monocytes (%) (Auto) 6.3 H, Eosinophils (%) (Auto) 0.1, Basophils (%) (Auto) 0.3, Neutrophils # (Auto) 8.1 H, Lymphocytes # (Auto) 0.7 L, Monocytes # (Auto) 0.6, Eosinophils # (Auto) 0.0, Basophils # (Auto) 0.0, Calcium Level 7.8 L Vital Signs Date Time Temp Pulse Resp B/P (MAP) Pulse Ox O2 Delivery O2 Flow Rate FiO2 12/13/18 14:00 99.1 72 22 119/70 (86) 93 12/13/18 11:10 2 12/11/18 20:24 Room Air I&O- Last 24 Hours up to 6 AM 12/13/18 06:00 Intake Total 4190 ml Output Total 1610 ml Balance 2580 ml TIFFANIE CARMONA MD Dec 13, 2018 15:56
[2018-12-13] MEDS: ASPIRIN ENTERIC 325 MG TAB PO SCH (21:39)
[2018-12-13] MEDS: SIMVASTATIN 40 MG TAB PO SCH (21:39)
[2018-12-13] MEDS: TAMSULOSIN 0.4 MG CAP PO SCH (21:40)
[2018-12-13] MEDS: RAMIPRIL 1.25 MG CAP PO SCH (21:44)
[2018-12-14 02:00] VITALS: BP 120/86
[2018-12-14 06:00] VITALS: BP 108/60
[2018-12-14 06:40] LABS: BASO % 0.1 % (0.0-1.0); HEMATOCRIT 42.6 % (42.0-52.0); LYMPH # 1.1 10^3/uL (1.5-4.5); LYMPH % 13.2 % (24.0-44.0); MEAN CORPUSCULAR HEMOGLOBIN 31.3 pg (27.0-33.0); MEAN CORPUSCULAR HGB CONC 32.9 g/dl (32.0-36.5); MEAN CORPUSCULAR VOLUME 95.3 fl (80.0-96.0); MONO # 0.7 10^3/uL (0.0-0.8); MONO % 9.2 % (0.0-5.0); NEUTROPHILS # 6.1 10^3/uL (1.8-7.7); NEUTROPHILS % 77.1 % (36.0-66.0); PLATELET COUNT, AUTOMATED 140 10^3/uL (150-450); RED BLOOD COUNT 4.47 10^6/uL (4.30-6.10)
[2018-12-14 07:00] LABS: BLOOD UREA NITROGEN 10 MG/DL (7-18); CALCIUM LEVEL 7.6 MG/DL (8.8-10.2); CARBON DIOXIDE LEVEL 27 MEQ/L (21-32); CHLORIDE LEVEL 112 MEQ/L (98-107); CREATININE FOR GFR 0.95 MG/DL (0.70-1.30); GLOMERULAR FILTRATION RATE > 60.0 (>42); GLUCOSE, FASTING 96 MG/DL (70-100); MAGNESIUM LEVEL 2.1 MG/DL (1.8-2.4); POTASSIUM SERUM 3.5 MEQ/L (3.5-5.1); SODIUM LEVEL 144 MEQ/L (136-145)
--- NOTE | 2018-12-14 07:42 | IPNPDOC ---
Subjective Date Seen The patient was seen on 12/14/18. Subjective Chief Complaint/HPI Feeling well this am, denies pain, is voiding frequently with some hematuria. I explained that it is OK to discharge him from my standpoint. Will plan to see for follow up in the office in two weeks to review stone analysis, status of residual renal calculus and lower urinary tract symptoms. He agrees. Objective Physical Examination General Exam: Positive: Alert, Cooperative, No Acute Distress Assessment /Plan Assessment doing well post op day #1 extraction of left distal ureteral calculus Plan/VTE VTE Prophylaxis Ordered?: Yes Plan Ok for discharge, plan to follow up in office in two weeks VS, I&O, 24H, Fishbone Vital Signs/I&O Vital Signs Date Time Temp Pulse Resp B/P (MAP) Pulse Ox O2 Delivery O2 Flow Rate FiO2 12/14/18 06:00 97.0 70 20 108/60 (76) 96 12/13/18 11:10 2 12/11/18 20:24 Room Air I&O- Last 24 Hours up to 6 AM 12/14/18 06:00 Intake Total 1940 ml Output Total 675 ml Balance 1265 ml Laboratory Data 24H LABS Laboratory Tests 2 12/13/18 08:02: Immature Granulocyte % (Auto) 0.4, White Blood Count 9.4, Red Blood Count 4.75, Hemoglobin 14.8, Hematocrit 45.6, Mean Corpuscular Volume 96.0, Mean Corpuscular Hemoglobin 31.2, Mean Corpuscular Hemoglobin Concent 32.5, Red Cell Distribution Width 13.3, Platelet Count 131L, Neutrophils (%) (Auto) 85.8H, Lymphocytes (%) (Auto) 7.1L, Monocytes (%) (Auto) 6.3H, Eosinophils (%) (Auto) 0.1, Basophils (%) (Auto) 0.3, Neutrophils # (Auto) 8.1H, Lymphocytes # (Auto) 0.7L, Monocytes # (Auto) 0.6, Eosinophils # (Auto) 0.0, Basophils # (Auto) 0.0, Nucleated Red Blood Cells % (auto) 0.0, Anion Gap 5L, Glomerular Filtration Rate > 60.0, Blood Urea Nitrogen 12, Creatinine 1.05, Sodium Level 143, Potassium Level 3.7, Chloride Level 112H, Carbon Dioxide Level 26, Calcium Level 7.8L, Magnesium Level 2.3 12/14/18 06:09: Immature Granulocyte % (Auto) 0.4, White Blood Count 8.0, Red Blood Count 4.47, Hemoglobin 14.0, Hematocrit 42.6, Mean Corpuscular Volume 95.3, Mean Corpuscular Hemoglobin 31.3, Mean Corpuscular Hemoglobin Concent 32.9, Red Cell Distribution Width 13.2, Platelet Count 140L, Neutrophils (%) (Auto) 77.1H, Lymphocytes (%) (Auto) 13.2L, Monocytes (%) (Auto) 9.2H, Eosinophils (%) (Auto) 0.0, Basophils (%) (Auto) 0.1, Neutrophils # (Auto) 6.1, Lymphocytes # (Auto) 1.1L, Monocytes # (Auto) 0.7, Eosinophils # (Auto) 0.0, Basophils # (Auto) 0.0, Nucleated Red Blood Cells % (auto) 0.0, Anion Gap 5L, Glomerular Filtration Rate > 60.0, Blood Urea Nitrogen 10, Creatinine 0.95, Sodium Level 144, Potassium Level 3.5, Chloride Level 112H, Carbon Dioxide Level 27, Calcium Level 7.6L, Magnesium Level 2.1 CBC/BMP Laboratory Tests 12/13/18 08:02 Red Blood Count 4.75, Mean Corpuscular Volume 96.0, Mean Corpuscular Hemoglobin 31.2, Mean Corpuscular Hemoglobin Concent 32.5, Red Cell Distribution Width 13.3, Neutrophils (%) (Auto) 85.8 H, Lymphocytes (%) (Auto) 7.1 L, Monocytes (%) (Auto) 6.3 H, Eosinophils (%) (Auto) 0.1, Basophils (%) (Auto) 0.3, Neutrophils # (Auto) 8.1 H, Lymphocytes # (Auto) 0.7 L, Monocytes # (Auto) 0.6, Eosinophils # (Auto) 0.0, Basophils # (Auto) 0.0, Calcium Level 7.8 L 12/14/18 06:09 Red Blood Count 4.47, Mean Corpuscular Volume 95.3, Mean Corpuscular Hemoglobin 31.3, Mean Corpuscular Hemoglobin Concent 32.9, Red Cell Distribution Width 13.2, Neutrophils (%) (Auto) 77.1 H, Lymphocytes (%) (Auto) 13.2 L, Monocytes (%) (Auto) 9.2 H, Eosinophils (%) (Auto) 0.0, Basophils (%) (Auto) 0.1, Neutrophils # (Auto) 6.1, Lymphocytes # (Auto) 1.1 L, Monocytes # (Auto) 0.7, Eosinophils # (Auto) 0.0, Basophils # (Auto) 0.0, Calcium Level 7.6 L Microbiology Microbiology 12/12/18 Urine Culture - Final, Complete SHELDON STEARNS MD Dec 14, 2018 07:42
[2018-12-14] MEDS: BREO ELLIPTA INH SCH (08:05)
[2018-12-14] MEDS: predniSONE 5 MG TAB PO SCH (08:45)
[2018-12-14] MEDS: DOCUSATE SODIUM 100 MG CAP PO SCH (08:45)
[2018-12-14] MEDS ORDERED: FLOM0.4C39 PO (12:34)
--- NOTE | 2018-12-14 14:47 | IPNPDOC ---
Date Seen The patient was seen on 12/14/18. Progress Note Subjective: still c/o pink tinged urine, but anxious for discharge. concerned about flomax and wanting to know if another medication can yield better results. we discussed that this is first line, and should he get side effects such as hypotension, his urologist can select another medication. Objective: Vitals (See below) General: Lying in bed, no acute distress, comfortable, AAOx3 HEENT: NC, AT CVS: RRR, +S1S2 Lungs: Fair air entry b/l, no evidence of rales, rhonchi or wheezing upon auscultation Abdomen: Remain soft without distention or tenderness Extremities: No evidence of lower extremity edema, - Calf tenderness Assessment and plan: Patient is a 73 year old male with a PMHx of COPD not on O2, CAD (Hx o f [place]) s/p stent (2015), HTN, DLP, and GERD who presented to the ER with suddon onset of left flank pain radiating to groin. Patient had associated N/V. In the ER, patient had CT imaging that was consistent with a 6 mm stone at the left UV junction. Urology has been consulted. Patient has been admitted to the hospitalist service for further evaluation and treatment. Patient was seen and examined at the bedside. Patient is seen postoperatively. He currently denies any pain. Denies nausea, vomiting, constipation, diarrhea. Patient is noting urinary discomforts and has been passing blood with clots. Currently still able to urinate without any difficulty. Denies chest pain, shortness of breath or palpitations. Left flank pain radiating to left groin - likely 2/2 nephrolithiasis with stone at L UV Junction and hydronephrosis - Patient presented to the emergency room with complaints of left flank pain radiated to groin associated with nausea and vomiting - Clinically has resolution of pain; experiencing hematuria with clot passage; but is able to urinate - Leukocytosis has resolved; renal function appears normal, no electrolyte abnormalities - Repeat UAs without any sources of infection - s/p IV Fluid Hydration and tamsulosin - s/p Cystoscopy 12/13/18; with removal of stone - Urology (Dr. Jc) on consultation COPD not on O2 - No evidence of exacerbation - Patient takes prednisone at baseline - Continue with inhaled therapy as ordered CAD (Hx of AK) s/p stent (2016) - c/w ASA 325 HTN - BP well controlled - c/w Ramipril DLP - c/w Simvastatin GERD - Currently not on any medications DVT prophylaxis - c/w TEDs and Sequentials Disposition: -dc home today. VS, I&O, 24H, Fishbone Vital Signs/I&O Vital Signs Date Time Temp Pulse Resp B/P (MAP) Pulse Ox O2 Delivery O2 Flow Rate FiO2 12/14/18 06:00 97.0 70 20 108/60 (76) 96 12/13/18 11:10 2 12/11/18 20:24 Room Air I&O- Last 24 Hours up to 6 AM 12/14/18 06:00 Intake Total 1940 ml Output Total 675 ml Balance 1265 ml Laboratory Data 24H LABS Laboratory Tests 2 12/14/18 06:09: Immature Granulocyte % (Auto) 0.4, White Blood Count 8.0, Red Blood Count 4.47, Hemoglobin 14.0, Hematocrit 42.6, Mean Corpuscular Volume 95.3, Mean Corpuscular Hemoglobin 31.3, Mean Corpuscular Hemoglobin Concent 32.9, Red Cell Distribution Width 13.2, Platelet Count 140L, Neutrophils (%) (Auto) 77.1H, Lymphocytes (%) (Auto) 13.2L, Monocytes (%) (Auto) 9.2H, Eosinophils (%) (Auto) 0.0, Basophils (%) (Auto) 0.1, Neutrophils # (Auto) 6.1, Lymphocytes # (Auto) 1.1L, Monocytes # (Auto) 0.7, Eosinophils # (Auto) 0.0, Basophils # (Auto) 0.0, Nucleated Red Blood Cells % (auto) 0.0, Anion Gap 5L, Glomerular Filtration Rate > 60.0, Blood Urea Nitrogen 10, Creatinine 0.95, Sodium Level 144, Potassium Level 3.5, Chloride Level 112H, Carbon Dioxide Level 27, Calcium Level 7.6L, Magnesium Level 2.1 CBC/BMP Laboratory Tests 12/14/18 06:09 Red Blood Count 4.47, Mean Corpuscular Volume 95.3, Mean Corpuscular Hemoglobin 31.3, Mean Corpuscular Hemoglobin Concent 32.9, Red Cell Distribution Width 13.2, Neutrophils (%) (Auto) 77.1 H, Lymphocytes (%) (Auto) 13.2 L, Monocytes (%) (Auto) 9.2 H, Eosinophils (%) (Auto) 0.0, Basophils (%) (Auto) 0.1, Neutrophils # (Auto) 6.1, Lymphocytes # (Auto) 1.1 L, Monocytes # (Auto) 0.7, Eosinophils # (Auto) 0.0, Basophils # (Auto) 0.0, Calcium Level 7.6 L Microbiology Microbiology 12/12/18 Urine Culture - Final, Complete BROCK HORTON MD Dec 14, 2018 12:08
== END 2018-12-14 13:50 | disposition home or self-care (01) | DRG 670 ==
LOC: M ED 12:28 → EDBD 12:28 → M ED INP 18:43 → M MS5PR 20:35 → OBSVTOIN 12-13 13:12
PROVIDERS: ADMIT Internal Medicine; ATTEND Internal Medicine
PROC: 0TC78ZZ Extirpation of Matter from Left Ureter, Via Natural or Artificial Opening Endoscopic (ICD-10-PCS; principal; 2018-12-13 07:24)
DX: N13.2 Hydronephrosis with renal and ureteral calculous obstruction (principal); I10 Essential (primary) hypertension; E78.5 Hyperlipidemia, unspecified; J44.9 Chronic obstructive pulmonary disease, unspecified; I25.10 Atherosclerotic heart disease of native coronary artery without angina pectoris; I25.2 Old myocardial infarction; Z95.2 Presence of prosthetic heart valve; K21.9 Gastro-esophageal reflux disease without esophagitis; Z79.899 Other long term (current) drug therapy; Z79.82 Long term (current) use of aspirin

== ENCOUNTER 2019-06-19 10:39 | Emergency (ER) | payer MEDICARE ==
[~2019-06-19] VITALS: Ht 177.8 cm; Wt 71.5 kg
[~2019-06-19 10:39] MED LIST changes: -ASPI-222 PO; +ASPI-527 PO; +BREO1INH3 INH; +FLOM0.4C39 PO; +MM S100C PO; +PRED5TA PO; -SIMV40TA2 PO; +SIMV40TA20 PO; +VENTAER INH
[2019-06-19] MEDS ORDERED: NITR0.4S14 (10:44)
[2019-06-19 11:49] LABS: BASO % 0.4 % (0.0-1.0); EOS # 0.1 10^3/uL (0.0-0.5); EOS % 0.9 % (0.0-3.0); HEMATOCRIT 51.2 % (42.0-52.0); LYMPH % 15.2 % (24.0-44.0); MEAN CORPUSCULAR HEMOGLOBIN 31.6 pg (27.0-33.0); MEAN CORPUSCULAR HGB CONC 33.2 g/dl (32.0-36.5); MEAN CORPUSCULAR VOLUME 95.2 fl (80.0-96.0); MONO # 0.7 10^3/uL (0.0-0.8); MONO % 9.5 % (0.0-5.0); NEUTROPHILS # 5.1 10^3/uL (1.5-8.5); NEUTROPHILS % 73.7 % (36.0-66.0); PLATELET COUNT, AUTOMATED 170 10^3/uL (150-450); RED BLOOD COUNT 5.38 10^6/uL (4.30-6.10); WHITE BLOOD COUNT 6.9 10^3/uL (4.0-10.0)
[2019-06-19] MEDS: GASTROGRAFIN SOLUTION 30ML PO SCH ×2 (11:49→11:53)
[2019-06-19 12:04] LABS: ALBUMIN 3.9 GM/DL (3.2-5.2); BILIRUBIN,DIRECT 0.3 MG/DL (0.0-0.2); TOTAL PROTEIN 6.6 GM/DL (6.4-8.2)
[2019-06-19] MEDS ORDERED: ISOVUE-370 76% 100ML VIAL (Q9967) As Ordered ONE (13:09)
[2019-06-19] MEDS ORDERED: VANC125C3 PO (14:19)
[2019-06-19 14:35] VITALS: BP 158/84
--- NOTE | 2019-06-19 14:43 | REP ---
CT ABDOMEN AND PELVIS WITH ORAL AND IV CONTRAST: TECHNIQUE: Axial contrast enhanced images from the lung bases to the pubic symphysis using 100 mL Isovue 370 intravenous contrast material with multiplanar reformations. COMPARISON: 12/11/2018 No infiltrate is seen in the visualized lung bases. The liver and gallbladder are unremarkable. There are multiple calcified granulomas in the spleen. Adrenals, pancreas and kidneys are unremarkable. There is no hydronephrosis bilaterally. There is mild atherosclerotic calcification of the abdominal aorta with mild ectasia but no aneurysm. No adenopathy is seen. There is no free air or free fluid. The appendix is normal. There is diffuse thickening of the rectosigmoid colon extending into the lower left colon. The findings are compatible with colitis. Multiple metallic clips are seen along the anterior wall of the pelvis. Urinary bladder is not well distended and not well evaluated. IMPRESSION: Diffuse thickening of rectosigmoid colon extending into the lower left colon compatible with colitis. No free air or free fluid. Electronically Signed by Stewart Alvarez MD 06/19/2019 06:09 P
== END 2019-06-19 14:38 | disposition home or self-care (01) ==
LOC: M ED 10:39
DX: A04.72 Enterocolitis due to Clostridium difficile, not specified as recurrent (principal); J44.9 Chronic obstructive pulmonary disease, unspecified; E78.5 Hyperlipidemia, unspecified; N40.0 Benign prostatic hyperplasia without lower urinary tract symptoms; Z95.5 Presence of coronary angioplasty implant and graft; Z79.899 Other long term (current) drug therapy; Z79.82 Long term (current) use of aspirin; J30.89 Other allergic rhinitis; Z87.891 Personal history of nicotine dependence
CPT/HCPCS: 36415; 74177; 80047; 80076; 81001; 83690; 85025; 87507; 93041; 99284; Q9963; Q9967

== ENCOUNTER → 2019-07-07 | Outpatient (REF) | payer MEDICARE ==
[~2019-07-07] MED LIST changes: +NITR0.4S14; +SIMV40TA2 PO; -SIMV40TA20 PO; +VANC125C3 PO
== END ==
LOC: M LAB REF 11:48
PROVIDERS: ATTEND Physician Assistant
DX: R19.7 Diarrhea, unspecified (principal)

== ENCOUNTER → 2019-08-02 | Outpatient (REF) | payer MEDICARE ==
[2019-08-02 15:19] LABS: BACTERIA, URINE AUTO NEGATIVE (NEGATIVE); RBC, URINE AUTO 1 /HPF (0-3); SQUAMOUS EPITHELIAL CELL UR AU 0 /HPF (0-6); WBC, URINE AUTO 0 /HPF (0-3)
== END ==
LOC: M SMT 13:26
PROVIDERS: ATTEND Specialist
DX: N40.1 Benign prostatic hyperplasia with lower urinary tract symptoms (principal)
CPT/HCPCS: 81015; 87086; G0463

== ENCOUNTER → 2019-08-04 | Outpatient (CLI) | payer MEDICARE ==
--- NOTE | 2019-08-04 10:00 | REP ---
Urinary tract sonography: History: Gross hematuria. Kidney stone. Right flank pain. Findings: Scanning at the level of the urinary bladder demonstrate a hypertrophy of the prostate elevating the bladder base. Prostate dimensions by transabdominal sonography are 4.4 x 5.6 x 5.3 cm, calculated volume 68 mL. Emptying ureteral jet was observed from the right ureter during the bladder observation but not the left. Renal cortical echogenicity pattern is slightly increased bilaterally. No hydronephrosis seen on either side. No renal mass, calculus, or cyst is observed. Right renal dimensions are 10.6 x 5.4 x 4.3 cm left kidney measures 11.7 x 4.9 x 4.5 cm. Impression: Prostate enlargement. Slightly increased renal cortical echogenicity pattern. No mass cyst or calculus seen. No hydronephrosis noted. Electronically Signed by Thom Francois MD 08/04/2019 12:55 P
--- NOTE | 2019-08-04 10:35 | REP ---
KUB: Single view. History: Hematuria. History kidney stones. Right kidney pain times [address] study June 19, 2019. Findings: There are surgical clips distributed over the lower pelvis bilaterally. There are dystrophic calcifications in the region of the prostate gland. Bowel gas pattern is normal. Granulomatous calcifications are seen in the spleen. No urinary tract calculus is visible. Impression: No definite urinary tract calculus seen. Postoperative changes. Electronically Signed by Thom Francois MD 08/04/2019 12:56 P
== END ==
LOC: M RAD 07:34
PROVIDERS: ATTEND Specialist
DX: N40.0 Benign prostatic hyperplasia without lower urinary tract symptoms (principal); R31.0 Gross hematuria; N20.0 Calculus of kidney

== ENCOUNTER → 2020-07-02 | Outpatient (CLI) | payer MEDICARE ==
[~2020-07-02] MED LIST changes: -SIMV40TA2 PO; +SIMV40TA20 PO
--- NOTE | 2020-07-09 14:58 | REP ---
TWO-VIEW CHEST HISTORY: Chronic obstructive pulmonary disease (COPD) with acute exacerbation. TECHNIQUE: Two views of the chest are performed and compared to prior two-view chest 10/22/2017. FINDINGS: There is mild diffuse interstitial fibrotic changes, which appears stable. There is mild biapical pleural thickening, which is also stable. No superimposed acute infiltrate is visualized. The heart is normal in size. There is some tortuosity of the thoracic aorta. The mediastinal silhouette is unchanged. There are mild degenerative changes of the spine. IMPRESSION: Stable chronic findings with no evidence of acute pulmonary disease. MTDD
== END ==
LOC: M RAD 11:48
PROVIDERS: ATTEND Nurse Practitioner Adult Health
DX: J44.1 Chronic obstructive pulmonary disease with (acute) exacerbation (principal); M47.9 Spondylosis, unspecified

== ENCOUNTER → 2021-04-04 | Outpatient (CLI) | payer MEDICARE ==
[2021-04-04 11:49] LABS: BLOOD UREA NITROGEN 12 MG/DL (7-18); CALCIUM LEVEL 8.7 MG/DL (8.8-10.2); CARBON DIOXIDE LEVEL 31 MEQ/L (21-32); CHLORIDE LEVEL 105 MEQ/L (98-107); CHOLESTEROL LEVEL 121 MG/DL (<200); CHOLESTEROL RISK RATIO 2.122 (<5); CPK CREATINE PHOSPHOKINASE 60 U/L (39-308); CREATININE FOR GFR 0.85 MG/DL (0.70-1.30); GLOMERULAR FILTRATION RATE > 60.0 (>42); GLUCOSE, FASTING 88 MG/DL (70-100); HDL CHOLESTEROL 57 MG/DL (>40); LDL CHOLESTEROL 53 MG/DL (<100); NON-HDL-C 64 MG/DL; SODIUM LEVEL 139 MEQ/L (136-145); TRIGLYCERIDES LEVEL 53 MG/DL (<150)
== END ==
LOC: M LAB 08:40
PROVIDERS: ATTEND Internal Medicine Cardiovascular Disease
DX: I25.10 Atherosclerotic heart disease of native coronary artery without angina pectoris (principal); I10 Essential (primary) hypertension; E78.2 Mixed hyperlipidemia; Z79.82 Long term (current) use of aspirin

== ENCOUNTER → 2021-09-03 | Outpatient (CLI) | payer MEDICARE ==
--- NOTE | 2021-09-03 13:53 | REP ---
INDICATION: CHRONIC OBSTRUCTIVE PULMONARY DISEASE, UNSPECIFIED. COMPARISON: Two-view chest, 07/02/2020. TECHNIQUE: Upright PA and lateral chest images were obtained. FINDINGS: There is apical pleuroparenchymal scarring bilaterally, which is partially calcified on the left. There are stable calcified granulomas in both lungs. There is no evidence of acute interstitial or alveolar lung disease. There are no pleural effusions. The heart size is normal. There is stable tortuosity of the thoracic aorta. The upper abdominal bowel gas pattern is normal. There are no significant bony abnormalities of the chest. IMPRESSION: Chronic findings as noted not significantly changed. There is no evidence of acute cardiopulmonary pathology. <Electronically signed by Estrada Cesar > 09/03/21 [id number]
== END ==
LOC: M RAD 12:55
PROVIDERS: ATTEND Internal Medicine Pulmonary Disease
DX: J44.9 Chronic obstructive pulmonary disease, unspecified (principal)

== ENCOUNTER → 2022-01-15 | Outpatient (REF) | payer MEDICARE ==
[2022-01-15 16:23] LABS: HEMOGLOBIN 16.8 g/dl (13.5-17.5); MEAN CORPUSCULAR HEMOGLOBIN 30.9 pg (27.0-33.0); MEAN CORPUSCULAR HGB CONC 32.9 g/dl (32.0-36.5); MEAN CORPUSCULAR VOLUME 93.9 fl (80.0-96.0); PLATELET COUNT, AUTOMATED 164 10^3/uL (150-450); RED BLOOD COUNT 5.43 10^6/uL (4.30-6.10); WHITE BLOOD COUNT 6.7 10^3/uL (4.0-10.0)
[2022-01-15 16:35] LABS: ALBUMIN 3.9 GM/DL (3.2-5.2); ALT/SGPT 17 U/L (12-78); BILIRUBIN,TOTAL 0.9 MG/DL (0.2-1.0); BLOOD UREA NITROGEN 9 MG/DL (7-18); CARBON DIOXIDE LEVEL 31 MEQ/L (21-32); CHLORIDE LEVEL 105 MEQ/L (98-107); CHOLESTEROL LEVEL 118 MG/DL (<200); CHOLESTEROL RISK RATIO 1.873 (<5); CREATININE FOR GFR 1.04 MG/DL (0.70-1.30); FREE T4 1.05 NG/DL (0.76-1.46); GLOMERULAR FILTRATION RATE > 60.0 (>42); GLUCOSE, FASTING 147 MG/DL (70-100); HDL CHOLESTEROL 63 MG/DL (>40); LDL CHOLESTEROL 43 MG/DL (<100); NON-HDL-C 55 MG/DL; POTASSIUM SERUM 4.5 MEQ/L (3.5-5.1); SODIUM LEVEL 139 MEQ/L (136-145); THYROID STIMULATING HORMONE 0.749 uIU/ML (0.358-3.740); TOTAL PROTEIN 6.7 GM/DL (6.4-8.2); TRIGLYCERIDES LEVEL 60 MG/DL (<150)
== END ==
LOC: M SFHCADAM 12:04
PROVIDERS: ATTEND Family Medicine
DX: J43.8 Other emphysema (principal); E78.5 Hyperlipidemia, unspecified; I11.9 Hypertensive heart disease without heart failure; Z95.5 Presence of coronary angioplasty implant and graft

== ENCOUNTER → 2022-03-30 | Outpatient (CLI) | payer MEDICARE ==
[~2022-03-30] MED LIST changes: +ALBU2.5V10 INH; -ALBU83IN INH
== END ==
LOC: M LABSMTC 09:19
PROVIDERS: ATTEND Anesthesiology
DX: Z20.828 Contact with and (suspected) exposure to other viral communicable diseases (principal); Z11.59 Encounter for screening for other viral diseases

== ENCOUNTER 2022-04-03 08:30 | Day surgery (SDC) | payer MEDICARE ==
[~2022-04-03] VITALS: Ht 177.8 cm; Wt 73.9 kg
[~2022-04-03 08:30] MED LIST changes: +NS 1,000 ML IV ONE
[2022-04-03] MEDS ORDERED: LIDOCAINE 2% INJ 100 MG/5 ML SYRINGE As Ordered ONE (10:19)
[2022-04-03] MEDS ORDERED: propofoL 200 MG/20 ML VIAL As Ordered ONE ×2 (10:19→11:08)
[2022-04-03 11:10] VITALS: BP 127/71
== END 2022-04-03 11:24 | disposition home or self-care (01) ==
LOC: M OPP 08:30
PROVIDERS: ATTEND Surgery
DX: Z12.11 Encounter for screening for malignant neoplasm of colon (principal); Z86.010 Personal history of colon polyps; D12.6 Benign neoplasm of colon, unspecified; K57.30 Diverticulosis of large intestine without perforation or abscess without bleeding; K64.2 Third degree hemorrhoids; Z79.02 Long term (current) use of antithrombotics/antiplatelets; Z79.51 Long term (current) use of inhaled steroids; Z79.82 Long term (current) use of aspirin; Z79.899 Other long term (current) drug therapy; Z86.74 Personal history of sudden cardiac arrest; Z87.891 Personal history of nicotine dependence

== ENCOUNTER → 2022-07-16 | Outpatient (REF) | payer MEDICARE ==
[~2022-07-16] MED LIST changes: -NS 1,000 ML IV ONE
[2022-07-16 14:05] LABS: HEMATOCRIT 52.7 % (42.0-52.0); HEMOGLOBIN 17.3 g/dl (13.5-17.5); MEAN CORPUSCULAR HEMOGLOBIN 31.1 pg (27.0-33.0); MEAN CORPUSCULAR HGB CONC 32.8 g/dl (32.0-36.5); MEAN CORPUSCULAR VOLUME 94.8 fl (80.0-96.0); PLATELET COUNT, AUTOMATED 165 10^3/uL (150-450); RED BLOOD COUNT 5.56 10^6/uL (4.30-6.10); WHITE BLOOD COUNT 6.4 10^3/uL (4.0-10.0)
[2022-07-16 14:33] LABS: HEMOGLOBIN A1c 5.4 %
[2022-07-16 14:40] LABS: ALT/SGPT 15 U/L (12-78); BILIRUBIN,TOTAL 1.2 MG/DL (0.2-1.0); BLOOD UREA NITROGEN 8 MG/DL (7-18); CALCIUM LEVEL 9.4 MG/DL (8.8-10.2); CARBON DIOXIDE LEVEL 29 MEQ/L (21-32); CHLORIDE LEVEL 103 MEQ/L (98-107); CHOLESTEROL LEVEL 121 MG/DL (<200); CHOLESTEROL RISK RATIO 2.016 (<5); CREATININE FOR GFR 0.94 MG/DL (0.70-1.30); GLOMERULAR FILTRATION RATE > 60.0 (>42); GLUCOSE, FASTING 81 MG/DL (70-100); HDL CHOLESTEROL 60 MG/DL (>40); LDL CHOLESTEROL 48 MG/DL (<100); NON-HDL-C 61 MG/DL; POTASSIUM SERUM 4.9 MEQ/L (3.5-5.1); SODIUM LEVEL 136 MEQ/L (136-145); TRIGLYCERIDES LEVEL 66 MG/DL (<150)
== END ==
LOC: M SFHCADAM 11:17
PROVIDERS: ATTEND Family Medicine
DX: R73.9 Hyperglycemia, unspecified (principal); Z12.5 Encounter for screening for malignant neoplasm of prostate; Z79.899 Other long term (current) drug therapy

== ENCOUNTER → 2022-09-18 | Outpatient (CLI) | payer MEDICARE | LOC: M ADAMS 09:58 | PROVIDERS: ATTEND Internal Medicine Pulmonary Disease | DX: J44.9 Chronic obstructive pulmonary disease, unspecified (principal) ==

== ENCOUNTER → 2022-10-17 | Outpatient (CLI) | payer MEDICARE ==
[2022-10-17 14:28] LABS: HEMATOCRIT 50.3 % (42.0-52.0); HEMOGLOBIN 16.3 g/dl (13.5-17.5); MEAN CORPUSCULAR HEMOGLOBIN 30.9 pg (27.0-33.0); MEAN CORPUSCULAR HGB CONC 32.4 g/dl (32.0-36.5); MEAN CORPUSCULAR VOLUME 95.3 fl (80.0-96.0); PLATELET COUNT, AUTOMATED 162 10^3/uL (150-450); RED BLOOD COUNT 5.28 10^6/uL (4.30-6.10); WHITE BLOOD COUNT 5.2 10^3/uL (4.0-10.0)
[2022-10-17 15:02] LABS: ALKALINE PHOSPHATASE 97 U/L (46-116); ALT/SGPT 13 U/L (7.0-40); AST/SGOT 17 U/L (<34); BLOOD UREA NITROGEN 13 MG/DL (9-23); CALCIUM LEVEL 9.1 MG/DL (8.3-10.6); CARBON DIOXIDE LEVEL 28 MMOL/L (20-31); CHLORIDE LEVEL 106 MMOL/L (98-107); CHOLESTEROL LEVEL 128 MG/DL (<200); CHOLESTEROL RISK RATIO 2.26 (<5); CREATININE FOR GFR 1.01 MG/DL (0.70-1.30); GLOMERULAR FILTRATION RATE > 60.0 (>42); GLUCOSE, FASTING 85 MG/DL (74-106); HDL CHOLESTEROL 56.4 MG/DL (>40); LDL CHOLESTEROL 62.4 MG/DL (<100); NON-HDL-C 72 MG/DL; POTASSIUM SERUM 5.1 MMOL/L (3.5-5.1); SODIUM LEVEL 141 MMOL/L (136-145); TOTAL PROTEIN 6.4 G/DL (5.7-8.2); TRIGLYCERIDES LEVEL 46 MG/DL (<150)
== END ==
LOC: M PLALAB 10:03
PROVIDERS: ATTEND Family Medicine
DX: R07.89 Other chest pain (principal); R73.9 Hyperglycemia, unspecified; E78.5 Hyperlipidemia, unspecified; I11.9 Hypertensive heart disease without heart failure

== ENCOUNTER → 2023-02-09 | Outpatient (CLI) | payer MEDICARE | LOC: M WHC 08:51 | PROVIDERS: ATTEND Family Medicine | DX: R10.11 Right upper quadrant pain (principal) ==

== ENCOUNTER → 2023-03-03 | Outpatient (CLI) | payer MEDICARE | LOC: M ADAMS 13:51 | PROVIDERS: ATTEND Physician Assistant Medical | DX: M47.816 Spondylosis without myelopathy or radiculopathy, lumbar region (principal); S32.050A Wedge compression fracture of fifth lumbar vertebra, initial encounter for closed fracture; X58.XXXA Exposure to other specified factors, initial encounter; Y92.9 Unspecified place or not applicable; Y93.9 Activity, unspecified; Y99.9 Unspecified external cause status ==

== ENCOUNTER → 2023-07-02 | Outpatient (REF) | payer MEDICARE ==
[2023-07-02 17:40] LABS: HEMATOCRIT 44.4 % (42.0-52.0); HEMOGLOBIN 14.4 g/dl (13.5-17.5); MEAN CORPUSCULAR HEMOGLOBIN 30.8 pg (27.0-33.0); MEAN CORPUSCULAR HGB CONC 32.4 g/dl (32.0-36.5); MEAN CORPUSCULAR VOLUME 94.9 fl (80.0-96.0); PLATELET COUNT, AUTOMATED 156 10^3/uL (150-450); RED BLOOD COUNT 4.68 10^6/uL (4.30-6.10); WHITE BLOOD COUNT 5.2 10^3/uL (4.0-10.0)
[2023-07-02 17:46] LABS: ALBUMIN 3.5 G/DL (3.2-5.2); ALKALINE PHOSPHATASE 93 U/L (46-116); ALT/SGPT 11 U/L (7.0-40); AST/SGOT 12 U/L (<34); BILIRUBIN,TOTAL 0.8 MG/DL (0.3-1.2); BLOOD UREA NITROGEN 9 MG/DL (9-23); CARBON DIOXIDE LEVEL 30 MMOL/L (20-31); CHLORIDE LEVEL 107 MMOL/L (98-107); CHOLESTEROL LEVEL 107 MG/DL (<200); CHOLESTEROL RISK RATIO 2.04 (<5); GLOMERULAR FILTRATION RATE > 60.0 (>42); GLUCOSE, FASTING 71 MG/DL (74-106); HDL CHOLESTEROL 52.4 MG/DL (>40); LDL CHOLESTEROL 43.4 MG/DL (<100); NON-HDL-C 54.6 MG/DL; SODIUM LEVEL 144 MMOL/L (136-145); TOTAL PROTEIN 5.9 G/DL (5.7-8.2); TRIGLYCERIDES LEVEL 56 MG/DL (<150)
[2023-07-02 18:38] LABS: HEMOGLOBIN A1c 5.1 % (4.0-6.0)
== END ==
LOC: M SFHCADAM 13:04
PROVIDERS: ATTEND Family Medicine
DX: R07.89 Other chest pain (principal); E78.5 Hyperlipidemia, unspecified; R73.9 Hyperglycemia, unspecified

== ENCOUNTER → 2023-07-07 | Outpatient (REF) | payer MEDICARE ==
[2023-07-07 14:41] LABS: THYROID STIMULATING HORMONE 1.849 uIU/ML (0.55-4.78)
[2023-07-07 14:43] LABS: FREE T4 1.24 NG/DL (0.89-1.76)
[2023-07-07 17:46] LABS: PTH INTACT 68.4 PG/ML (18.5-88.0)
[2023-07-08 19:07] LABS: FREE KAPPA LIGHT CHAINS SERUM 18.4 mg/L (3.3-19.4); FREE LAMBDA LIGHT CHAINS SERUM 14.3 mg/L (5.7-26.3); KAPPA/LAMBDA RATIO SERUM 1.29 (0.26-1.65)
== END ==
LOC: M SFHCADAM 10:28
PROVIDERS: ATTEND Family Medicine
DX: Z12.5 Encounter for screening for malignant neoplasm of prostate (principal); S32.000D Wedge compression fracture of unspecified lumbar vertebra, subsequent encounter for fracture with routine healing; E78.5 Hyperlipidemia, unspecified
CPT/HCPCS: 83521; 83970; 84155; 84165; 84439; 84443; G0103

== ENCOUNTER → 2023-07-22 | Outpatient (CLI) | payer MEDICARE | LOC: M WHC 10:24 | PROVIDERS: ATTEND Family Medicine | DX: Z13.820 Encounter for screening for osteoporosis (principal); M48.46XD Fatigue fracture of vertebra, lumbar region, subsequent encounter for fracture with routine healing; M85.88 Other specified disorders of bone density and structure, other site ==

== ENCOUNTER → 2023-08-04 | Outpatient (REF) | payer MEDICARE | LOC: M SFHCADAM 10:59 | PROVIDERS: ATTEND Family Medicine | DX: M80.00XD Age-related osteoporosis with current pathological fracture, unspecified site, subsequent encounter for fracture with routine healing (principal) ==

== ENCOUNTER → 2023-11-13 | Outpatient (CLI) | payer MEDICARE | LOC: M ADAMS 14:38 | PROVIDERS: ATTEND Family Medicine | DX: R06.09 Other forms of dyspnea (principal) ==

== ENCOUNTER → 2023-11-13 | Outpatient (REF) | payer MEDICARE ==
[2023-11-13 18:34] LABS: HEMOGLOBIN 16.8 g/dl (13.5-17.5); MEAN CORPUSCULAR HEMOGLOBIN 31.8 pg (27.0-33.0); MEAN CORPUSCULAR HGB CONC 33.6 g/dl (32.0-36.5); MEAN CORPUSCULAR VOLUME 94.5 fl (80.0-96.0); PLATELET COUNT, AUTOMATED 159 10^3/uL (150-450); RED BLOOD COUNT 5.29 10^6/uL (4.30-6.10); WHITE BLOOD COUNT 6.9 10^3/uL (4.0-10.0)
[2023-11-13 18:51] LABS: C REACTIVE PROTEIN QUANTITATIV < 0.40 MG/DL (<1.0)
[2023-11-13 18:52] LABS: ALBUMIN 4.4 G/DL (3.2-5.2); ALKALINE PHOSPHATASE 94 U/L (46-116); ALT/SGPT 11 U/L (7.0-40); AST/SGOT 11 U/L (<34); BILIRUBIN,TOTAL 1.1 MG/DL (0.3-1.2); BLOOD UREA NITROGEN 12 MG/DL (9-23); CALCIUM LEVEL 8.9 MG/DL (8.3-10.6); CARBON DIOXIDE LEVEL 29 MMOL/L (20-31); CHLORIDE LEVEL 102 MMOL/L (98-107); CPK CREATINE PHOSPHOKINASE 112 U/L (46-171); CREATININE FOR GFR 0.91 MG/DL (0.70-1.30); GLOMERULAR FILTRATION RATE > 60.0 (>42); GLUCOSE, FASTING 73 MG/DL (74-106); POTASSIUM SERUM 4.2 MMOL/L (3.5-5.1); SODIUM LEVEL 138 MMOL/L (136-145); TOTAL PROTEIN 6.7 G/DL (5.7-8.2)
[2023-11-13 18:59] LABS: FREE T4 1.22 NG/DL (0.89-1.76); THYROID STIMULATING HORMONE 1.881 uIU/ML (0.55-4.78)
== END ==
LOC: M SFHCADAM 14:02
PROVIDERS: ATTEND Family Medicine
DX: R06.09 Other forms of dyspnea (principal); M62.81 Muscle weakness (generalized)

== ENCOUNTER → 2023-11-19 | Outpatient (CLI) | payer MEDICARE | LOC: M ADAMS 09:06 | PROVIDERS: ATTEND Family Medicine | DX: R06.00 Dyspnea, unspecified (principal) ==

== ENCOUNTER → 2023-11-19 | Outpatient (REF) | payer MEDICARE ==
[2023-11-19 13:52] LABS: BASO % 0.4 % (0.0-1.0); EOS # 0.2 10^3/uL (0.0-0.5); EOS % 2.8 % (0.0-3.0); HEMATOCRIT 49.5 % (42.0-52.0); HEMOGLOBIN 16.2 g/dl (13.5-17.5); LYMPH # 1.2 10^3/uL (1.5-5.0); LYMPH % 21.5 % (24.0-44.0); MEAN CORPUSCULAR HEMOGLOBIN 31.5 pg (27.0-33.0); MEAN CORPUSCULAR HGB CONC 32.7 g/dl (32.0-36.5); MEAN CORPUSCULAR VOLUME 96.1 fl (80.0-96.0); MONO # 0.6 10^3/uL (0.0-0.8); MONO % 10.8 % (2.0-8.0); NEUTROPHILS # 3.5 10^3/uL (1.5-8.5); NEUTROPHILS % 64.3 % (36.0-66.0); PLATELET COUNT, AUTOMATED 156 10^3/uL (150-450); RED BLOOD COUNT 5.15 10^6/uL (4.30-6.10); WHITE BLOOD COUNT 5.4 10^3/uL (4.0-10.0)
== END ==
LOC: M SFHCADAM 08:32
PROVIDERS: ATTEND Family Medicine
DX: R06.00 Dyspnea, unspecified (principal)

== ENCOUNTER → 2024-02-10 | Outpatient (CLI) | payer MEDICARE ==
[~2024-02-10] MED LIST changes: -RAMI1CAP22 PO; +RAMI2.5C42 PO
== END ==
LOC: M PLAIMG 10:03
PROVIDERS: ATTEND Family Medicine
DX: S32.000D Wedge compression fracture of unspecified lumbar vertebra, subsequent encounter for fracture with routine healing (principal); M47.816 Spondylosis without myelopathy or radiculopathy, lumbar region

== ENCOUNTER 2024-02-25 10:19 | Inpatient (IN) | payer MEDICARE ==
[~2024-02-25] VITALS: Ht 177.8 cm; Wt 72.2 kg
[2024-02-25] VITALS (8 sets, daily range): BP systolic 117–142; BP diastolic 65–88; TEMP 98.2–99; O2SAT 93–95
[~2024-02-25 10:19] MED LIST changes: +DOCUSATE SODIUM 100MG CAPSULE PO SCH; -NITR0.4S14; +NITR0.4S14 SL
[2024-02-25] MEDS ORDERED: ISOVUE-370 76% 100ML VIAL As Ordered ONE (10:36)
[2024-02-25 10:48] LABS: BASO % 0.8 % (0.0-1.0); EOS # 0.2 10^3/uL (0.0-0.5); EOS % 3.4 % (0.0-3.0); HEMATOCRIT 50.6 % (42.0-52.0); LYMPH # 1.1 10^3/uL (1.5-5.0); LYMPH % 22.7 % (24.0-44.0); MEAN CORPUSCULAR HEMOGLOBIN 31.3 pg (27.0-33.0); MEAN CORPUSCULAR HGB CONC 33.6 g/dl (32.0-36.5); MONO # 0.4 10^3/uL (0.0-0.8); NEUTROPHILS # 3.3 10^3/uL (1.5-8.5); NEUTROPHILS % 64.7 % (36.0-66.0); PLATELET COUNT, AUTOMATED 151 10^3/uL (150-450); RED BLOOD COUNT 5.44 10^6/uL (4.30-6.10)
[2024-02-25 10:55] LABS: INR 1.09; PARTIAL THROMBOPLASTIN TIME 30.6 SECONDS (24.8-34.2); PROTHROMBIN TIME 13.8 SECONDS (12.5-14.5)
[2024-02-25 11:14] LABS: BLOOD UREA NITROGEN 8 MG/DL (9-23); CARBON DIOXIDE LEVEL 29 MMOL/L (20-31); CHLORIDE LEVEL 107 MMOL/L (98-107); CREATININE FOR GFR 0.92 MG/DL (0.70-1.30); GLOMERULAR FILTRATION RATE > 60.0 (>42); GLUCOSE, FASTING 123 MG/DL (74-106); POTASSIUM SERUM 4.1 MMOL/L (3.5-5.1); SODIUM LEVEL 140 MMOL/L (136-145)
[2024-02-25] MEDS ORDERED: FLOM0.4C39 PO (12:11)
[2024-02-25] MEDS ORDERED: ECOT81TA5 PO (12:11)
[2024-02-25] MEDS ORDERED: ALEN70TA82 PO (12:13)
[2024-02-25] MEDS ORDERED: ALBU8.5H INH (12:14)
[2024-02-25] MEDS ORDERED: HOME MED LIST COMPLETE! XX SCH (12:15)
[2024-02-25] MEDS ORDERED: ALBUTEROL 90 MCG/ACT 8GM HFA INHALER INH PRN (13:05)
[2024-02-25] MEDS ORDERED: ACETAMINOPHEN TAB 650MG DOSE (2X325MG) PO PRN (13:05)
[2024-02-25] MEDS ORDERED: NITROGLYCERIN 0.4MG SUBL TABLET SL PRN (13:30)
[2024-02-25 13:32] LABS: ALBUMIN 3.4 G/DL (3.2-5.2); ALKALINE PHOSPHATASE 90 U/L (46-116); ALT/SGPT 10 U/L (7.0-40); AST/SGOT < 8 U/L (<34); BILIRUBIN,TOTAL 0.9 MG/DL (0.3-1.2); BLOOD UREA NITROGEN 8 MG/DL (9-23); CALCIUM LEVEL 8.6 MG/DL (8.3-10.6); CARBON DIOXIDE LEVEL 29 MMOL/L (20-31); CHLORIDE LEVEL 106 MMOL/L (98-107); CREATININE FOR GFR 0.85 MG/DL (0.70-1.30); GLOMERULAR FILTRATION RATE > 60.0 (>42); GLUCOSE, FASTING 97 MG/DL (74-106); POTASSIUM SERUM 4.2 MMOL/L (3.5-5.1); SODIUM LEVEL 139 MMOL/L (136-145); TOTAL PROTEIN 5.9 G/DL (5.7-8.2)
[2024-02-25] MEDS ORDERED: CLOPIDOGREL 75 MG TAB PO SCH (14:40)
[2024-02-25 15:05] LABS: CHOLESTEROL LEVEL 113 MG/DL (<200); CHOLESTEROL RISK RATIO 2.31 (<5); HDL CHOLESTEROL 48.9 MG/DL (>40); LDL CHOLESTEROL 48.5 MG/DL (<100); NON-HDL-C 64.1 MG/DL; TRIGLYCERIDES LEVEL 78 MG/DL (<150)
[2024-02-25] MEDS: ASPIRIN 325 MG TAB PO ONE (15:34)
[2024-02-25 18:28] LABS: INR 1.1; PARTIAL THROMBOPLASTIN TIME 30.9 SECONDS (24.8-34.2); PROTHROMBIN TIME 13.9 SECONDS (12.5-14.5)
[2024-02-25] MEDS: ASPIRIN ENTERIC 325MG TAB PO SCH (20:10)
[2024-02-25] MEDS: SIMVASTATIN 40 MG TAB PO SCH (20:11)
[2024-02-25] MEDS: DOCUSATE SODIUM 100MG CAPSULE PO SCH (20:11)
[2024-02-25] MEDS: TAMSULOSIN 0.4 MG CAP PO SCH (20:11)
[2024-02-25] MEDS ORDERED: ASPIRIN 81MG ENTERIC TABLET PO SCH (21:00)
[2024-02-25] MEDS ORDERED: ramipriL 1.25 MG CAP PO SCH (21:00)
[2024-02-25] MEDS: NS 1,000 ML IV SCH (21:33)
[2024-02-26 05:42] VITALS: BP 118/66; TEMP 98.6; O2SAT 97
[2024-02-26 06:15] LABS: HEMATOCRIT 45.4 % (42.0-52.0); HEMOGLOBIN 15.2 g/dl (13.5-17.5); MEAN CORPUSCULAR HEMOGLOBIN 31.3 pg (27.0-33.0); MEAN CORPUSCULAR HGB CONC 33.5 g/dl (32.0-36.5); MEAN CORPUSCULAR VOLUME 93.4 fl (80.0-96.0); PLATELET COUNT, AUTOMATED 127 10^3/uL (150-450); RED BLOOD COUNT 4.86 10^6/uL (4.30-6.10); WHITE BLOOD COUNT 5.2 10^3/uL (4.0-10.0)
[2024-02-26 06:40] LABS: ALBUMIN 3.1 G/DL (3.2-5.2); ALKALINE PHOSPHATASE 82 U/L (46-116); ALT/SGPT 10 U/L (7.0-40); AST/SGOT < 8 U/L (<34); BLOOD UREA NITROGEN 7 MG/DL (9-23); CALCIUM LEVEL 8.5 MG/DL (8.3-10.6); CARBON DIOXIDE LEVEL 28 MMOL/L (20-31); CHLORIDE LEVEL 107 MMOL/L (98-107); CREATININE FOR GFR 0.86 MG/DL (0.70-1.30); GLOMERULAR FILTRATION RATE > 60.0 (>42); GLUCOSE, FASTING 103 MG/DL (74-106); SODIUM LEVEL 140 MMOL/L (136-145); TOTAL PROTEIN 5.2 G/DL (5.7-8.2)
[2024-02-26] MEDS ORDERED: ADVAIR HFA 230/21MCG INHALER INH SCH (08:00)
[2024-02-26] MEDS ORDERED: ASPIRIN ENTERIC 325MG TAB PO SCH (09:00)
[2024-02-26] MEDS: ENOXAPARIN 40MG/0.4ML SYRINGE (J1650 PER 10MG) SC SCH (09:49)
[2024-02-26] MEDS: PREVNAR-20 VACCINE 0.5ML SYRINGE IM.IMMUN ONE (09:51)
[2024-02-26 14:00] VITALS: BP 119/66; TEMP 98.3; O2SAT 97
[2024-02-26 21:30] VITALS: BP 119/67; TEMP 98.6; O2SAT 95
[2024-02-27 05:00] VITALS: BP 119/70; TEMP 98.1; O2SAT 94
[2024-02-27 06:12] LABS: HEMATOCRIT 45.2 % (42.0-52.0); HEMOGLOBIN 15.1 g/dl (13.5-17.5); MEAN CORPUSCULAR HGB CONC 33.4 g/dl (32.0-36.5); MEAN CORPUSCULAR VOLUME 92.8 fl (80.0-96.0); PLATELET COUNT, AUTOMATED 121 10^3/uL (150-450); RED BLOOD COUNT 4.87 10^6/uL (4.30-6.10); WHITE BLOOD COUNT 4.7 10^3/uL (4.0-10.0)
[2024-02-27 06:35] LABS: ALBUMIN 2.9 G/DL (3.2-5.2); ALKALINE PHOSPHATASE 77 U/L (46-116); ALT/SGPT 9 U/L (7.0-40); AST/SGOT < 8 U/L (<34); BLOOD UREA NITROGEN 8 MG/DL (9-23); CALCIUM LEVEL 8.4 MG/DL (8.3-10.6); CARBON DIOXIDE LEVEL 26 MMOL/L (20-31); CHLORIDE LEVEL 110 MMOL/L (98-107); CREATININE FOR GFR 0.84 MG/DL (0.70-1.30); GLOMERULAR FILTRATION RATE > 60.0 (>42); GLUCOSE, FASTING 89 MG/DL (74-106); POTASSIUM SERUM 3.9 MMOL/L (3.5-5.1); SODIUM LEVEL 142 MMOL/L (136-145); TOTAL PROTEIN 5.2 G/DL (5.7-8.2)
[2024-02-27] MEDS ORDERED: ASPI32ECTA PO (07:25)
[2024-02-27] MEDS: BREO ELLIPTA INH SCH (07:46)
== END 2024-02-27 11:21 | disposition home or self-care (01) | DRG 66 ==
LOC: M ED 10:19 → EDBD 10:19 → INTOOBSV 13:04 → M ED INP 13:04 → M MSPAV 13:04 → OBSVTOIN 02-26 11:45
PROVIDERS: ADMIT Internal Medicine; ATTEND Internal Medicine
DX: I63.512 Cerebral infarction due to unspecified occlusion or stenosis of left middle cerebral artery (principal); R47.01 Aphasia; J44.9 Chronic obstructive pulmonary disease, unspecified; I10 Essential (primary) hypertension; I25.10 Atherosclerotic heart disease of native coronary artery without angina pectoris; K21.9 Gastro-esophageal reflux disease without esophagitis; N40.0 Benign prostatic hyperplasia without lower urinary tract symptoms; G62.9 Polyneuropathy, unspecified; E78.5 Hyperlipidemia, unspecified; Z79.82 Long term (current) use of aspirin; Z79.899 Other long term (current) drug therapy; Z95.2 Presence of prosthetic heart valve; K57.90 Diverticulosis of intestine, part unspecified, without perforation or abscess without bleeding; Z98.41 Cataract extraction status, right eye; Z98.42 Cataract extraction status, left eye

== ENCOUNTER → 2024-07-20 | Outpatient (REF) | payer MEDICARE ==
[~2024-07-20] MED LIST changes: +ALBU8.5H INH; +ALEN70TA82 PO; +ASPI32ECTA PO; -DOCUSATE SODIUM 100MG CAPSULE PO SCH; +ECOT81TA5 PO
[2024-07-20 13:12] LABS: HEMATOCRIT 46.5 % (42.0-52.0); MEAN CORPUSCULAR HEMOGLOBIN 30.9 pg (27.0-33.0); MEAN CORPUSCULAR HGB CONC 32.3 g/dl (32.0-36.5); MEAN CORPUSCULAR VOLUME 95.7 fl (80.0-96.0); PLATELET COUNT, AUTOMATED 155 10^3/uL (150-450); RED BLOOD COUNT 4.86 10^6/uL (4.30-6.10); WHITE BLOOD COUNT 5.7 10^3/uL (4.0-10.0)
[2024-07-20 13:44] LABS: FREE T4 1.18 NG/DL (0.89-1.76)
[2024-07-20 13:45] LABS: THYROID STIMULATING HORMONE 1.496 uIU/ML (0.55-4.78)
[2024-07-20 13:47] LABS: ALBUMIN 3.3 G/DL (3.2-5.2); ALKALINE PHOSPHATASE 93 U/L (46-116); ALT/SGPT 9 U/L (7.0-40); AST/SGOT < 8 U/L (<34); BILIRUBIN,TOTAL 1.1 MG/DL (0.3-1.2); BLOOD UREA NITROGEN 12 MG/DL (9-23); CARBON DIOXIDE LEVEL 30 MMOL/L (20-31); CHLORIDE LEVEL 108 MMOL/L (98-107); CHOLESTEROL LEVEL 114 MG/DL (<200); CHOLESTEROL RISK RATIO 2.74 (<5); CREATININE FOR GFR 1.08 MG/DL (0.70-1.30); GLOMERULAR FILTRATION RATE > 60.0 (>42); GLUCOSE, FASTING 82 MG/DL (74-106); HDL CHOLESTEROL 41.6 MG/DL (>40); LDL CHOLESTEROL 60.6 MG/DL (<100); MAGNESIUM LEVEL 2.2 MG/DL (1.8-2.4); NON-HDL-C 72.4 MG/DL; POTASSIUM SERUM 3.8 MMOL/L (3.5-5.1); SODIUM LEVEL 143 MMOL/L (136-145); TOTAL PROTEIN 6.2 G/DL (5.7-8.2); TRIGLYCERIDES LEVEL 59 MG/DL (<150)
[2024-07-20 14:17] LABS: HEMOGLOBIN A1c 5.3 % (4.0-6.0)
== END ==
LOC: M SFHCADAM 10:05
PROVIDERS: ATTEND Family Medicine
DX: I47.19 Other supraventricular tachycardia (principal); I63.9 Cerebral infarction, unspecified; I11.9 Hypertensive heart disease without heart failure; E78.5 Hyperlipidemia, unspecified; Z13.1 Encounter for screening for diabetes mellitus

== ENCOUNTER 2024-08-16 14:31 | Outpatient (CLI) | payer MEDICARE ==
[~2024-08-16] VITALS: Ht 177.8 cm; Wt 72.7 kg
[2024-08-16 14:55] VITALS: BP 137/69; O2SAT 97
[2024-08-16] MEDS: ZOLEDRONIC ACID 5 MG in IV 1 EA IV ONE (15:07)
[2024-08-16 15:52] VITALS: BP 127/74; O2SAT 95
== END 2024-08-16 15:55 | disposition home or self-care (01) ==
LOC: M INFU 14:31
PROVIDERS: ATTEND Family Medicine
DX: S32.000A Wedge compression fracture of unspecified lumbar vertebra, initial encounter for closed fracture (principal); Z91.048 Other nonmedicinal substance allergy status
CPT/HCPCS: 96365; J3489

== ENCOUNTER → 2025-03-30 | Outpatient (CLI) | payer MEDICARE ==
[~2025-03-30] MED LIST changes: -FLOM0.4C39 PO; +PROHANCE 279.3MG/ML 15ML VIAL ONE; +TAMS-18 PO; +VANC125C13 PO; -VANC125C3 PO
== END ==
LOC: M PLAIMG 12:35
PROVIDERS: ATTEND Physician Assistant
DX: H53.2 Diplopia (principal); R27.0 Ataxia, unspecified; I49.9 Cardiac arrhythmia, unspecified; I95.1 Orthostatic hypotension
CPT/HCPCS: 70553; A9576

== ENCOUNTER → 2025-04-05 | Outpatient (CLI) | payer MEDICARE ==
[~2025-04-05] MED LIST changes: -PROHANCE 279.3MG/ML 15ML VIAL ONE
[2025-04-05 14:03] LABS: BASO # 0.0 10^3/uL (0.0-0.2); BASO % 0.4 % (0.0-1.0); EOS # 0.1 10^3/uL (0.0-0.5); EOS % 1.3 % (0.0-3.0); LYMPH # 1.2 10^3/uL (1.5-5.0); LYMPH % 21.9 % (24.0-44.0); MONO # 0.6 10^3/uL (0.0-0.8); MONO % 9.9 % (2.0-8.0); NEUTROPHILS # 3.7 10^3/uL (1.5-8.5); NEUTROPHILS % 66.3 % (36.0-66.0); PLATELET COUNT, AUTOMATED 194 10^3/uL (150-450)
[2025-04-05 14:10] LABS: ALT/SGPT 12.0 U/L (7.0-40); AST/SGOT 14.0 U/L (<34); CALCIUM LEVEL 9.4 MG/DL (8.3-10.6); CARBON DIOXIDE LEVEL 30.0 MMOL/L (20-31); CHLORIDE LEVEL 104.0 MMOL/L (98-107); CREATININE FOR GFR 0.97 MG/DL (0.70-1.30); GLOMERULAR FILTRATION RATE 79.9 (>42); POTASSIUM SERUM 4.9 MMOL/L (3.5-5.1); SODIUM LEVEL 144.0 MMOL/L (136-145)
== END ==
LOC: M PLALAB 09:52
PROVIDERS: ATTEND Family Medicine
DX: R42 Dizziness and giddiness (principal); Z79.899 Other long term (current) drug therapy

== ENCOUNTER → 2025-07-04 | Outpatient (REF) | payer MEDICARE ==
[2025-07-04 18:52] LABS: PLATELET COUNT, AUTOMATED 160 10^3/uL (150-450)
[2025-07-04 19:02] LABS: VITAMIN B12 LEVEL 208.0 PG/ML (211-911)
[2025-07-04 19:04] LABS: ALT/SGPT 10.0 U/L (7.0-40); AST/SGOT 13.0 U/L (<34); CALCIUM LEVEL 9.1 MG/DL (8.3-10.6); CARBON DIOXIDE LEVEL 28.0 MMOL/L (20-31); CHLORIDE LEVEL 103.0 MMOL/L (98-107); CHOLESTEROL LEVEL 120.0 MG/DL (<200); CHOLESTEROL RISK RATIO 2.35 (<5); CREATININE FOR GFR 0.9 MG/DL (0.70-1.30); GLOMERULAR FILTRATION RATE 87.4 (>42); LDL CHOLESTEROL 52.5 MG/DL (<100); NON-HDL-C 69.1 MG/DL; POTASSIUM SERUM 4.7 MMOL/L (3.5-5.1); SODIUM LEVEL 140.0 MMOL/L (136-145); TOTAL 25(OH) VITAMIN D 26.6 NG/ML (20.0-100.0); TRIGLYCERIDES LEVEL 83.0 MG/DL (<150)
[2025-07-04 19:06] LABS: FREE T4 1.24 NG/DL (0.89-1.76)
[2025-07-04 19:59] LABS: ESTIMATED AVERAGE GLUCOSE 105.0 MG/DL (60-110)
== END ==
LOC: M SFHCADAM 11:44
PROVIDERS: ATTEND Family Medicine
DX: S32.000D Wedge compression fracture of unspecified lumbar vertebra, subsequent encounter for fracture with routine healing (principal); Z95.5 Presence of coronary angioplasty implant and graft; E78.5 Hyperlipidemia, unspecified; I63.9 Cerebral infarction, unspecified; G62.89 Other specified polyneuropathies; Z79.899 Other long term (current) drug therapy; Z79.82 Long term (current) use of aspirin

== ENCOUNTER → 2025-08-07 | Outpatient (CLI) | payer MEDICARE ==
[2025-08-07 16:45] LABS: VITAMIN B12 LEVEL 170.0 PG/ML (211-911)
[2025-08-10 02:57] LABS: T P ELECTROPHORESIS SO 6.6 g/dL (6.1-8.1)
[2025-08-11 08:06] LABS: ALBUMIN SPEP 4.0 g/dL (3.8-4.8); ALPHA-1-GLOBULINS SO 0.3 g/dL (0.2-0.3); ALPHA-2-GLOBULINS SO 0.7 g/dL (0.5-0.9); BETA 2 GLOBULIN 0.4 g/dL (0.2-0.5); BETA-GLOBULIN SO 0.4 g/dL (0.4-0.6); GAMMA GLOBULINS SO 0.8 g/dL (0.8-1.7)
[2025-08-12 03:37] LABS: VITAMIN E(ALPHA TOCOPHEROL) 9.4 mg/L (5.7-19.9); VITAMIN E(GAMMA TOCOPHEROL) 1.5 mg/L (<=4.3)
== END ==
LOC: M LAB 13:50
PROVIDERS: ATTEND Psychiatry & Neurology Neurology
DX: E11.9 Type 2 diabetes mellitus without complications (principal); G60.9 Hereditary and idiopathic neuropathy, unspecified; D51.9 Vitamin B12 deficiency anemia, unspecified; E51.9 Thiamine deficiency, unspecified; E53.1 Pyridoxine deficiency

== ENCOUNTER → 2025-08-08 | Outpatient (REF) | payer MEDICARE ==
[2025-08-08 13:26] LABS: ESTIMATED AVERAGE GLUCOSE 108.0 MG/DL (60-110)
== END ==
LOC: M LAB REF 12:31
PROVIDERS: ATTEND Psychiatry & Neurology Neurology
DX: E11.9 Type 2 diabetes mellitus without complications (principal); G60.9 Hereditary and idiopathic neuropathy, unspecified; D51.9 Vitamin B12 deficiency anemia, unspecified; E51.9 Thiamine deficiency, unspecified; E53.1 Pyridoxine deficiency

== ENCOUNTER → 2025-08-18 | Outpatient (REF) | payer MEDICARE, OTHER ==
[2025-08-18 18:22] LABS: CALCIUM LEVEL 9.1 MG/DL (8.3-10.6); CARBON DIOXIDE LEVEL 30.0 MMOL/L (20-31); CHLORIDE LEVEL 103.0 MMOL/L (98-107); CREATININE FOR GFR 1.02 MG/DL (0.70-1.30); GLOMERULAR FILTRATION RATE 75.2 (>42); POTASSIUM SERUM 4.4 MMOL/L (3.5-5.1); SODIUM LEVEL 143.0 MMOL/L (136-145)
== END ==
LOC: M LAB REF 17:04 → M SFHCADAM 17:04
PROVIDERS: ATTEND Family Medicine
DX: S32.000D Wedge compression fracture of unspecified lumbar vertebra, subsequent encounter for fracture with routine healing (principal)

== ENCOUNTER 2025-09-04 14:55 | Outpatient (CLI) | payer MEDICARE ==
[~2025-09-04] VITALS: Ht 177.8 cm; Wt 75.9 kg
[2025-09-04 15:00] VITALS: BP 125/71; O2SAT 96
[2025-09-04] MEDS: ZOLEDRONIC ACID 5 MG in IV 1 EA IV ONE (15:05)
[2025-09-04 15:42] VITALS: BP 111/71; O2SAT 98
== END 2025-09-04 15:45 | disposition home or self-care (01) ==
LOC: M INFU 14:55
PROVIDERS: ATTEND Family Medicine
DX: M81.0 Age-related osteoporosis without current pathological fracture (principal); Z91.09 Other allergy status, other than to drugs and biological substances
CPT/HCPCS: 96365; J3489

== ENCOUNTER → 2025-09-11 | Outpatient (CLI) | payer MEDICARE | LOC: M ADAMS 09:41 | PROVIDERS: ATTEND Family Medicine | DX: S30.0XXA Contusion of lower back and pelvis, initial encounter (principal); X58.XXXA Exposure to other specified factors, initial encounter; Y92.9 Unspecified place or not applicable; Y93.9 Activity, unspecified; Y99.9 Unspecified external cause status ==